=== PATIENT | male | born 1955 | race Caucasian/White ===

== ENCOUNTER 2020-11-23 19:21 | Inpatient (IN) | payer OTHER ==
[~2020-11-23] VITALS: Ht 172.7 cm; Wt 102.2 kg
[~2020-11-23 19:21] MED LIST: ACET325T9 PO; ANALGESIC BALM TP; ASPI325T11 PO; CALC60CR2 TP; DILTIAZEM CD PO; DOCU100C28 PO; FLUT16SP NS; TRIAMCINOLONE 0.1% TP; [UNRECOGNIZED DRUG - OTHER] PO
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
--- NOTE | 2020-11-23 19:51 | RAD ---
AP chest. HISTORY: Chest tube placement AP view was taken of the chest. Comparison is made with the prior study . The left chest tube is kinked at the proximal sidehole similar to the prior film. There is subcutan eous emphysema on the left. A pneumothorax is not identified. There is atelectasis in the left lung. Again noted are the multiple left rib fractures. IMPRESSION: 1. Left chest tube kinked at the proximal sidehole. 2. A pneumothorax is not identified. 3. Atelectasis left lung. Electronically signed by: Chuy Noonan MD (11/23/2020 7:48 PM) [facility]
[2020-11-23 19:57] LABS: BASO % 0 % (0-3); EOS % 0 % (0-3); HEMATOCRIT 42.8 % (39.0-53.0); LYMPH # 1.3 x10^3/uL (1.0-4.8); LYMPH % 11 % (24-48); MEAN CORPUSCULAR HEMOGLOBIN 26 pg (25-35); MEAN CORPUSCULAR HGB CONC 33 g/dL (31-37); MEAN CORPUSCULAR VOLUME 79 fL (79-100); MONO # 0.8 x10^3/uL (0.0-1.1); MONO % 6 % (0-9); NEUT # 9.9 x10^3/uL (1.8-7.7); NEUT % 83 % (31-73); PLATELET COUNT 225 x10^3/uL (140-400); RED BLOOD COUNT 5.39 x10^6/uL (4.30-5.70); WHITE BLOOD COUNT 11.9 x10^3/uL (4.0-11.0)
[2020-11-23 20:07] LABS: CREATININE 1.1 mg/dL (0.7-1.3); GFR 67.6; POTASSIUM 3.8 mmol/L (3.5-5.1)
[2020-11-23 20:13] LABS: ALBUMIN 3.8 g/dL (3.4-5.0); CALCIUM 8.7 mg/dL (8.5-10.1); TOTAL BILIRUBIN 0.4 mg/dL (0.2-1.0); TOTAL PROTEIN 7.5 g/dL (6.4-8.2)
[2020-11-23] MEDS ORDERED: ONDANSETRON PF 4 MG/2 ML VIAL. IV PRN (21:00)
[2020-11-23 21:10] VITALS: BP 211/89
[2020-11-23] MEDS: MORPHINE SULFATE 4 MG/ML VIAL. IV PRN ×2 (21:37→23:46)
[2020-11-23] MEDS ORDERED: LOSA-73 PO (21:48)
[2020-11-23] MEDS ORDERED: MAGN400C PO (21:48)
[2020-11-23] MEDS ORDERED: BYSTOLIC2.5 MG PO (21:48)
[2020-11-23 23:00] VITALS: BP 235/105
[2020-11-23] MEDS: HYDROcodone/APAP 5/325MG 1 TAB TABLET PO PRN (23:02)
[2020-11-23] MEDS: LOSARTAN POTASSIUM 50 MG TABLET. PO SCH (23:06)
[2020-11-23] MEDS: METOPROLOL TART IMMED RELEASE 25 MG TABLET. PO SCH (23:07)
[2020-11-23] MEDS: hydrALAZINE 20 MG/ML VIAL. IVP PRN (23:24)
[2020-11-23 23:49] VITALS: BP 183/88
[2020-11-24] VITALS (7 sets, daily range): BP systolic 154–225; BP diastolic 71–118
[2020-11-24] MEDS: HYDROmorphone 2 MG/ML VIAL IVP PRN ×8 (01:08→23:56)
--- NOTE | 2020-11-24 01:20 | NUR ---
Pt's BP had been high @ the 200's. Dr Reardon notified, orders received. To transfer to [facility].
--- NOTE | 2020-11-24 01:20 | NUR ---
Pt asked if he can call his family. Pt was informed that its not allowed. Reinforced.
--- NOTE | 2020-11-24 04:20 | NUR ---
Pts BP at 229/118, HR is 90. Pt refusing to have IV hydralazine administered. Pt educated on effects of high blood pressure, pt states he has high blood pressure at this level all the time, that the doesn't have a headache and doesn't want to take any BP medication at this time.
[2020-11-24] MEDS: ASPIRIN ENTERIC COATED 325 MG TABLET.DR. PO SCH (08:40)
[2020-11-24] MEDS: HYDROcodone/APAP 5/325MG 1 TAB TABLET PO PRN ×4 (08:40→23:57)
[2020-11-24] MEDS: LOSARTAN POTASSIUM 50 MG TABLET. PO SCH (08:41)
[2020-11-24] MEDS: METOPROLOL TART IMMED RELEASE 25 MG TABLET. PO SCH ×2 (08:41→21:25)
--- NOTE | 2020-11-24 08:48 | RAD ---
EXAM: Chest, single view. HISTORY: Pneumothorax. COMPARISON: 11/23/2020 FINDINGS: A frontal view of the chest is obtained. There is a left thoracostomy tube unchanged in pos ition. There is soft tissue gas along the lateral left chest wall. There is a stable small left pneum othorax. There is lateral left mid lung and lower lobe atelectasis. There is a stable prominent cardi ac silhouette. There is lucency under the right diaphragm. IMPRESSION: 1. No signal change in a small left pneumothorax status post thoracostomy tube placement. There is st able left mid and lower lung atelectasis. 2. Lucency under the right hemidiaphragm possibly due to interposition of bowel superior to the liver . There is no correlate for this finding on the prior study. Dedicated upright and supine views of th e abdomen can be performed if this concern for pneumoperitoneum. Electronically signed by: Pinky Torres MD (11/24/2020 8:46 AM) [id number]
[2020-11-24] MEDS ORDERED: CALCIPOTRIENE 1 GM TP SCH (09:00)
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
[2020-11-24] MEDS ORDERED: SODIUM PHOSPHATES 19/7GM 133 ML ENEMA. PR PRN (11:00)
[2020-11-24] MEDS ORDERED: 0.9 % SODIUM CHLORIDE 10 ML DISP.SYRIN. IV PRN (11:00)
[2020-11-24] MEDS ORDERED: ACETAMINOPHEN 325 MG TABLET. PO PRN (11:00)
[2020-11-24] MEDS ORDERED: MAG HYDROX/ALUMINUM HYD/SIMETH 30 ML ORAL.SUSP PO PRN (11:00)
[2020-11-24] MEDS ORDERED: ONDANSETRON PF 4 MG/2 ML VIAL. IV PRN (11:00)
[2020-11-24] MEDS ORDERED: cloNIDine HCL 0.1 MG TABLET PO PRN (11:00)
[2020-11-24 13:29] LABS: BASO % 0 % (0-3); EOS % 0 % (0-3); HEMATOCRIT 40.1 % (39.0-53.0); HEMOGLOBIN 13.2 g/dL (13.0-17.5); LYMPH # 1.8 x10^3/uL (1.0-4.8); LYMPH % 18 % (24-48); MEAN CORPUSCULAR HEMOGLOBIN 26 pg (25-35); MEAN CORPUSCULAR HGB CONC 33 g/dL (31-37); MEAN CORPUSCULAR VOLUME 80 fL (79-100); MONO # 0.7 x10^3/uL (0.0-1.1); MONO % 7 % (0-9); NEUT # 7.5 x10^3/uL (1.8-7.7); NEUT % 75 % (31-73); PLATELET COUNT 197 x10^3/uL (140-400); RED BLOOD COUNT 5.01 x10^6/uL (4.30-5.70)
[2020-11-24 13:49] LABS: ALBUMIN 3.6 g/dL (3.4-5.0); CALCIUM 8.5 mg/dL (8.5-10.1); CREATININE 1.2 mg/dL (0.7-1.3); GFR 61.1; POTASSIUM 3.3 mmol/L (3.5-5.1); TOTAL BILIRUBIN 0.7 mg/dL (0.2-1.0); TOTAL PROTEIN 7.3 g/dL (6.4-8.2)
[2020-11-24] MEDS: IV NORMAL SALINE 1000ML BAG 1,000 ML IV SCH (13:58)
--- NOTE | 2020-11-24 15:27 | PDOC2 ---
CARDIOLOGY CONSULT NOTE DATE OF SERVICE: DATE: 11/24/20 TIME: 15:21 CHIEF COMPLAINT: Fall and resultant pneumothorax HPI: 65-year-old man who has been admitted to the hospital for treatment of a pneumothorax after a fall and rib fractures. He has been in significant pain and in the setting has had elevated blood pressures. Cardiology was asked to comment on his elevated blood pressures. He currently denies any chest pain. He has no exertional dyspnea prior to his fall. He has no syncope or palpitations. He has been struggling with blood pressure issues at his half-way and has been reluctant to take medications and he initially wanted to do weight loss and dietary changes but he is now more recently been taking his blood pressure medications. He denies any other cardiac pathology although per history it is reported that he had a stent in 2010. PMHX: 1. Coronary artery disease status post PCI with presumed non-ST elevation microinfarction based on records in 2010 or 2011 2. Hypertension 3. Dyslipidemia 4. Obstructive sleep apnea 5. Chronic pain SOCHX: He currently lives in half-way. Denies any alcohol, tobacco or illicit drug use. FAMHX: Noncontributory CURRENT MEDS: Current Medications Medications (Trade) Dose Ordered Sig/Katie Route PRN Reason Start Time Stop Time Status Last Admin Dose Admin Ondansetron HCl (Zofran) 4 mg PRN Q8HRS PRN IV NAUSEA/VOMITING 11/23/20 21:00 11/24/20 11:34 DC 11/24/20 01:32 Morphine Sulfate (Morphine Sulfate) 4 mg PRN Q2HR PRN IV PAIN 11/23/20 21:00 11/24/20 00:42 DC 11/23/20 23:46 Aspirin (Ecotrin) 325 mg DAILY PO 11/24/20 09:00 11/24/20 08:40 Losartan Potassium (Cozaar) 50 mg DAILY PO 11/23/20 23:30 11/24/20 08:41 Metoprolol Tartrate (Lopressor) 12.5 mg BID PO 11/23/20 23:30 11/24/20 08:41 Acetaminophen/ Hydrocodone Bitart (Lortab 5/325) 1 tab PRN Q4HRS PRN PO MODERATE PAIN 4-6 11/23/20 23:00 11/24/20 15:00 Hydralazine HCl (Apresoline Inj) 10 mg PRN Q4HRS PRN IVP ELEVATED BP, SEE COMMENTS 11/23/20 23:00 11/23/20 23:24 Hydromorphone HCl (Dilaudid) 0.7 mg PRN Q3HRS PRN IVP SEVERE PAIN 7-10 11/24/20 00:45 11/24/20 14:04 Sodium Chloride 1,000 ml @ 65 mls/hr [id number] IV 11/24/20 12:00 11/24/20 13:58 ALLERGIES: Allergies Coded Allergies Type Severity Reaction Last Updated Verified No Known Drug Allergies 05/12/17 No ROS: Negative unless otherwise mentioned above in HPI PHYSICAL EXAM: Vital Signs/I&O: Vital Signs Date Time Temp Pulse Resp B/P (MAP) Pulse Ox O2 Delivery O2 Flow Rate FiO2 11/24/20 15:00 18 97 Room Air 11/24/20 11:00 98.4 61 154/71 (98) 98.4 11/24/20 04:25 2.0 I & O 11/23/20 11/23/20 11/24/20 15:00 23:00 07:00 Intake Total 600 ml Output Total 518 ml Balance 82 ml Physical Exam: The patient appeared well nourished and normally developed. Head exam is unremarkable. No scleral icterus or corneal arcus noted. Neck is without jugular venous distension, thyromegaly, or carotid bruits. Carotid upstrokes are brisk bilaterally. Lungs are clear to auscultation anteriorly with left-sided chest tube in place Cardiac exam reveals the PMI to be normally sized and situated. Rhythm is regular. First and second heart sounds normal. No murmurs, rubs or gallops. Abdominal exam reveals normal bowel sounds, no masses, no organomegaly and no aortic enlargement. Extremities are nonedematous and both femoral and pedal pulses are normal. Msk: No traumua Neuro: No focal deficits DIAGNOSTIC TESTING: Labs reviewed. ASSESSMENT: 1. Elevated blood pressure in the setting of pneumothorax and chest tube: Although his blood pressure is elevated at this time I suspect this is mostly due to pain. He also has underlying hypertension 2. Coronary artery disease 3. Dyslipidemia PLAN: 1. At this present time continue aspirin, metoprolol and losartan. Consider ou tpatient statin therapy given prior history of coronary artery disease 2. Once his acute issues are resolved with his chest tube and rib pain if he still is hypertensive we can continue to adjust his medical therapy as necessary. At this present time no further cardiac testing is needed. Supportive care for now. We will follow along closely. Thank you for this consultation JANUARY CHICAS MD Nov 24, 2020 15:27
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
[2020-11-24] MEDS: ENOXAPARIN 40 MG/0.4 ML SYRINGE. SQ SCH (17:39)
--- NOTE | 2020-11-24 20:15 | NUR ---
The patient's BP was noted to be elevated, prn pain meds given. BP went down to the 150's. The patient still complained of severe pain, called doctor vest front presser, new orders received.
[2020-11-24] MEDS ORDERED: POTASSIUM CHLORIDE 20 MEQ TABLET.ER. PO ONE (20:45)
[2020-11-24] MEDS: hydrALAZINE 20 MG/ML VIAL. IVP PRN (21:24)
[2020-11-25] MEDS: HYDROmorphone 2 MG/ML VIAL IVP PRN ×6 (02:06→16:40)
[2020-11-25] MEDS: HYDROcodone/APAP 5/325MG 1 TAB TABLET PO PRN ×3 (04:11→13:08)
[2020-11-25] MEDS: IV NORMAL SALINE 1000ML BAG 1,000 ML IV SCH ×2 (04:13→21:41)
[2020-11-25 04:28] LABS: CALCIUM 8.5 mg/dL (8.5-10.1); CREATININE 0.9 mg/dL (0.7-1.3); GFR 85.2
[2020-11-25 07:00] VITALS: BP 172/61
--- NOTE | 2020-11-25 07:45 | RAD ---
EXAM: Chest, single view. HISTORY: Pneumothorax. COMPARISON: 11/24/2020 FINDINGS: A frontal view of the chest is obtained. There is a left thoracostomy tube overlying the le ft upper thorax. No pneumothorax is seen. There is left greater than right lower lobe infiltrate or a telectasis. There are displaced left rib fractures. There is a stable cardiac silhouette. There is ti ssue gas along the left chest wall. IMPRESSION: 1. Left thoracostomy tube overlying the left upper thorax. No pneumothorax is seen. 2. Stable left greater than right lower lobe atelectasis or infiltrate. 3. Multiple left rib fractures. Electronically signed by: Pinky Torres MD (11/25/2020 7:43 AM) [id number]
[2020-11-25] MEDS: POTASSIUM CHLORIDE 20 MEQ TABLET.ER. PO SCH (08:06)
[2020-11-25] MEDS: METOPROLOL TART IMMED RELEASE 25 MG TABLET. PO SCH ×2 (08:07→21:44)
[2020-11-25] MEDS: LOSARTAN POTASSIUM 50 MG TABLET. PO SCH (08:07)
[2020-11-25] MEDS: ASPIRIN ENTERIC COATED 325 MG TABLET.DR. PO SCH (08:07)
--- NOTE | 2020-11-25 08:51 | PDOC ---
PULMONARY PROGRESS NOTES DATE: 11/25/20 TIME: 08:49 Subjective has rib pain, sob no cough Vitals Vital Signs Date Time Temp Pulse Resp B/P (MAP) Pulse Ox O2 Delivery O2 Flow Rate FiO2 11/25/20 08:07 70 172/61 11/25/20 08:06 18 97 Room Air 11/25/20 07:04 2.0 11/25/20 07:00 97.7 97.7 Lungs: Other (l ct l diminished bs ) Cardiovascular: S1, S2 Abdomen: Soft Neuro Exam: Alert Skin: Warm Labs Laboratory Tests Test 11/23/20 19:48 11/24/20 13:05 11/25/20 03:40 White Blood Count 11.9 x10^3/uL (4.0-11.0) 10.0 x10^3/uL (4.0-11.0) Red Blood Count 5.39 x10^6/uL (4.30-5.70) 5.01 x10^6/uL (4.30-5.70) Hemoglobin 14.0 g/dL (13.0-17.5) 13.2 g/dL (13.0-17.5) Hematocrit 42.8 % (39.0-53.0) 40.1 % (39.0-53.0) Mean Corpuscular Volume 79 fL (79-100) 80 fL (79-100) Mean Corpuscular Hemoglobin 26 pg (25-35) 26 pg (25-35) Mean Corpuscular Hemoglobin Concent 33 g/dL (31-37) 33 g/dL (31-37) Red Cell Distribution Width 14.0 % (11.5-14.5) 14.0 % (11.5-14.5) Platelet Count 225 x10^3/uL (140-400) 197 x10^3/uL (140-400) Neutrophils (%) (Auto) 83 % (31-73) 75 % (31-73) Lymphocytes (%) (Auto) 11 % (24-48) 18 % (24-48) Monocytes (%) (Auto) 6 % (0-9) 7 % (0-9) Eosinophils (%) (Auto) 0 % (0-3) 0 % (0-3) Basophils (%) (Auto) 0 % (0-3) 0 % (0-3) Neutrophils # (Auto) 9.9 x10^3/uL (1.8-7.7) 7.5 x10^3/uL (1.8-7.7) Lymphocytes # (Auto) 1.3 x10^3/uL (1.0-4.8) 1.8 x10^3/uL (1.0-4.8) Monocytes # (Auto) 0.8 x10^3/uL (0.0-1.1) 0.7 x10^3/uL (0.0-1.1) Eosinophils # (Auto) 0.0 x10^3/uL (0.0-0.7) 0.0 x10^3/uL (0.0-0.7) Basophils # (Auto) 0.0 x10^3/uL (0.0-0.2) 0.0 x10^3/uL (0.0-0.2) Sodium Level 144 mmol/L (136-145) 143 mmol/L (136-145) 139 mmol/L (136-145) Potassium Level 3.8 mmol/L (3.5-5.1) 3.3 mmol/L (3.5-5.1) 4.0 mmol/L (3.5-5.1) Chloride Level 103 mmol/L (98-107) 103 mmol/L (98-107) 104 mmol/L (98-107) Carbon Dioxide Level 27 mmol/L (21-32) 32 mmol/L (21-32) 25 mmol/L (21-32) Anion Gap 14 (6-14) 8 (6-14) 10 (6-14) Blood Urea Nitrogen 15 mg/dL (8-26) 23 mg/dL (8-26) 24 mg/dL (8-26) Creatinine 1.1 mg/dL (0.7-1.3) 1.2 mg/dL (0.7-1.3) 0.9 mg/dL (0.7-1.3) Estimated GFR (Cockcroft-Gault) 67.6 61.1 85.2 BUN/Creatinine Ratio 14 (6-20) 19 (6-20) Glucose Level 155 mg/dL (70-99) 133 mg/dL (70-99) 101 mg/dL (70-99) Calcium Level 8.7 mg/dL (8.5-10.1) 8.5 mg/dL (8.5-10.1) 8.5 mg/dL (8.5-10.1) Total Bilirubin 0.4 mg/dL (0.2-1.0) 0.7 mg/dL (0.2-1.0) Aspartate Amino Transf (AST/SGOT) 26 U/L (15-37) 25 U/L (15-37) Alanine Aminotransferase (ALT/SGPT) 23 U/L (16-63) 17 U/L (16-63) Alkaline Phosphatase 61 U/L (46-116) 56 U/L (46-116) Total Protein 7.5 g/dL (6.4-8.2) 7.3 g/dL (6.4-8.2) Albumin 3.8 g/dL (3.4-5.0) 3.6 g/dL (3.4-5.0) Albumin/Globulin Ratio 1.0 (1.0-1.7) 1.0 (1.0-1.7) Laboratory Tests Test 11/24/20 13:05 11/25/20 03:40 White Blood Count 10.0 x10^3/uL (4.0-11.0) Red Blood Count 5.01 x10^6/uL (4.30-5.70) Hemoglobin 13.2 g/dL (13.0-17.5) Hematocrit 40.1 % (39.0-53.0) Mean Corpuscular Volume 80 fL (79-100) Mean Corpuscular Hemoglobin 26 pg (25-35) Mean Corpuscular Hemoglobin Concent 33 g/dL (31-37) Red Cell Distribution Width 14.0 % (11.5-14.5) Platelet Count 197 x10^3/uL (140-400) Neutrophils (%) (Auto) 75 % (31-73) Lymphocytes (%) (Auto) 18 % (24-48) Monocytes (%) (Auto) 7 % (0-9) Eosinophils (%) (Auto) 0 % (0-3) Basophils (%) (Auto) 0 % (0-3) Neutrophils # (Auto) 7.5 x10^3/uL (1.8-7.7) Lymphocytes # (Auto) 1.8 x10^3/uL (1.0-4.8) Monocytes # (Auto) 0.7 x10^3/uL (0.0-1.1) Eosinophils # (Auto) 0.0 x10^3/uL (0.0-0.7) Basophils # (Auto) 0.0 x10^3/uL (0.0-0.2) Sodium Level 143 mmol/L (136-145) 139 mmol/L (136-145) Potassium Level 3.3 mmol/L (3.5-5.1) 4.0 mmol/L (3.5-5.1) Chloride Level 103 mmol/L (98-107) 104 mmol/L (98-107) Carbon Dioxide Level 32 mmol/L (21-32) 25 mmol/L (21-32) Anion Gap 8 (6-14) 10 (6-14) Blood Urea Nitrogen 23 mg/dL (8-26) 24 mg/dL (8-26) Creatinine 1.2 mg/dL (0.7-1.3) 0.9 mg/dL (0.7-1.3) Estimated GFR (Cockcroft-Gault) 61.1 85.2 BUN/Creatinine Ratio 19 (6-20) Glucose Level 133 mg/dL (70-99) 101 mg/dL (70-99) Calcium Level 8.5 mg/dL (8.5-10.1) 8.5 mg/dL (8.5-10.1) Total Bilirubin 0.7 mg/dL (0.2-1.0) Aspartate Amino Transf (AST/SGOT) 25 U/L (15-37) Alanine Aminotransferase (ALT/SGPT) 17 U/L (16-63) Alkaline Phosphatase 56 U/L (46-116) Total Protein 7.3 g/dL (6.4-8.2) Albumin 3.6 g/dL (3.4-5.0) Albumin/Globulin Ratio 1.0 (1.0-1.7) Medications Active Scripts Medications Dose Route/Sig Max Daily Dose Days Date Category Magnesium (Magnesium Oxide) 400 Mg Capsule 1 Cap PO DAILY 30 11/23/20 Reported Losartan Potassium 50 Mg Tablet 50 Mg PO DAILY 11/23/20 Reported Bystolic (Nebivolol) 2.5 Mg Tablet 2.5 Mg PO DAILY 11/23/20 Reported Dovonex (Calcipotriene) 60 Gm Cream..g. 1 Gm TP TID 30 05/15/17 Rx [Triamcinolone 0.1%CR] 1 Applic TP BID 05/13/17 Reported Tylenol (Acetaminophen) 325 Mg Tablet 650 Mg PO BID PRN 05/13/17 Reported Fluticasone Propionate Nasal [place] (Fluticasone Propionate) 16 Gm [place].susp 1 [place] NS HS 05/13/17 Reported [Diltiazem CD] 1 Cap PO DAILY 05/13/17 Reported Aspirin Ec (Aspirin) 325 Mg Tablet.dr 1 Tab PO DAILY 05/13/17 Reported Comments cxr reviewed 1. Left thoracostomy tube overlying the left upper thorax. No pneumothorax is seen. 2. Stable left greater than right lower lobe atelectasis or infiltrate. 3. Multiple left rib fractures. Impression . IMPRESSION: 1. Status post fall. 2. Abnormal chest x-ray. 3. Left pneumothorax. 4. Rib fractures. 5. Obstructive sleep apnea-hypopnea syndrome. 6. History of coronary artery disease. 7. Hypertension. Plan . PLAN AND RECOMMENDATIONS: 1. Titrate FiO2 to keep O2 saturation 92%. 2. cxr reviewed, no ptx chest tube to water seal 3. Chest x-ray in the morning. 4. Lovenox for DVT prophylaxis. 5. Pain control per primary. 6. We would require repeat sleep study as an outpatient. 7. add BD The findings and recommendations were discussed with the patient and RN. JESSIE JOINER MD Nov 25, 2020 08:51
[2020-11-25] MEDS ORDERED: IPRATRPIUM/ALBUTEROL 0.5/2.5MG 3 ML NEBU. NEB ONE (09:00)
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
[2020-11-25 11:00] VITALS: BP 199/105
[2020-11-25] MEDS: IPRATRPIUM/ALBUTEROL 0.5/2.5MG 3 ML NEBU. NEB SCH ×3 (11:41→20:25)
[2020-11-25 11:59] LABS: BILIRUBIN,URINE NEGATIVE (NEG); CLARITY,URINE CLEAR; COLOR,URINE YELLOW; NITRITE,URINE NEGATIVE (NEG); PH,URINE 6.5 (<5.0-8.0); PROTEIN,URINE NEGATIVE (NEG-TRACE); UROBILINOGEN,URINE 0.2 mg/dL (0.2 mg/dL)
[2020-11-25 12:06] LABS: BARBITURATES NEG (NEG); BENZODIAZEPINES NEG (NEG); CANNABINOIDS NEG (NEG); COCAINE NEG (NEG); METHADONE NEG (NEG); OPIATES POS (NEG); PHENCYCLIDINE NEG (NEG)
[2020-11-25 12:08] LABS: AMPHETAMINE/METHAMPHETAMINE NEG (NEG)
[2020-11-25 12:18] LABS: HYALINE CASTS, URINE MODERATE /HPF
[2020-11-25 12:19] LABS: BACTERIA,URINE 0 /HPF (0-FEW); WBC,URINE 0 /HPF (0-4)
--- NOTE | 2020-11-25 12:34 | PDOC ---
SURGICAL PROGRESS NOTE DATE: 11/25/20 TIME: 12:32 Subjective Pt with c/o rib pain, nichole diet Vital Signs Vital Signs Date Time Temp Pulse Resp B/P (MAP) Pulse Ox O2 Delivery O2 Flow Rate FiO2 11/25/20 11:41 94 Room Air 11/25/20 11:00 98.6 73 20 199/105 (136) 98.6 11/25/20 07:04 2.0 I&O Intake and Output 11/25/20 07:00 Output Total 870 ml Balance -870 ml Output Urine Total 850 ml Chest Tube Drainage Total 20 ml General: Alert, Oriented X3, Cooperative, moderate distress HEENT: Atraumatic Lungs: Other (serosang) Abdomen: Soft, No tenderness Labs Laboratory Tests Test 11/23/20 19:48 11/24/20 13:05 11/25/20 00:05 11/25/20 03:40 White Blood Count 11.9 x10^3/uL (4.0-11.0) 10.0 x10^3/uL (4.0-11.0) Red Blood Count 5.39 x10^6/uL (4.30-5.70) 5.01 x10^6/uL (4.30-5.70) Hemoglobin 14.0 g/dL (13.0-17.5) 13.2 g/dL (13.0-17.5) Hematocrit 42.8 % (39.0-53.0) 40.1 % (39.0-53.0) Mean Corpuscular Volume 79 fL (79-100) 80 fL (79-100) Mean Corpuscular Hemoglobin 26 pg (25-35) 26 pg (25-35) Mean Corpuscular Hemoglobin Concent 33 g/dL (31-37) 33 g/dL (31-37) Red Cell Distribution Width 14.0 % (11.5-14.5) 14.0 % (11.5-14.5) Platelet Count 225 x10^3/uL (140-400) 197 x10^3/uL (140-400) Neutrophils (%) (Auto) 83 % (31-73) 75 % (31-73) Lymphocytes (%) (Auto) 11 % (24-48) 18 % (24-48) Monocytes (%) (Auto) 6 % (0-9) 7 % (0-9) Eosinophils (%) (Auto) 0 % (0-3) 0 % (0-3) Basophils (%) (Auto) 0 % (0-3) 0 % (0-3) Neutrophils # (Auto) 9.9 x10^3/uL (1.8-7.7) 7.5 x10^3/uL (1.8-7.7) Lymphocytes # (Auto) 1.3 x10^3/uL (1.0-4.8) 1.8 x10^3/uL (1.0-4.8) Monocytes # (Auto) 0.8 x10^3/uL (0.0-1.1) 0.7 x10^3/uL (0.0-1.1) Eosinophils # (Auto) 0.0 x10^3/uL (0.0-0.7) 0.0 x10^3/uL (0.0-0.7) Basophils # (Auto) 0.0 x10^3/uL (0.0-0.2) 0.0 x10^3/uL (0.0-0.2) Sodium Level 144 mmol/L (136-145) 143 mmol/L (136-145) 139 mmol/L (136-145) Potassium Level 3.8 mmol/L (3.5-5.1) 3.3 mmol/L (3.5-5.1) 4.0 mmol/L (3.5-5.1) Chloride Level 103 mmol/L (98-107) 103 mmol/L (98-107) 104 mmol/L (98-107) Carbon Dioxide Level 27 mmol/L (21-32) 32 mmol/L (21-32) 25 mmol/L (21-32) Anion Gap 14 (6-14) 8 (6-14) 10 (6-14) Blood Urea Nitrogen 15 mg/dL (8-26) 23 mg/dL (8-26) 24 mg/dL (8-26) Creatinine 1.1 mg/dL (0.7-1.3) 1.2 mg/dL (0.7-1.3) 0.9 mg/dL (0.7-1.3) Estimated GFR (Cockcroft-Gault) 67.6 61.1 85.2 BUN/Creatinine Ratio 14 (6-20) 19 (6-20) Glucose Level 155 mg/dL (70-99) 133 mg/dL (70-99) 101 mg/dL (70-99) Calcium Level 8.7 mg/dL (8.5-10.1) 8.5 mg/dL (8.5-10.1) 8.5 mg/dL (8.5-10.1) Total Bilirubin 0.4 mg/dL (0.2-1.0) 0.7 mg/dL (0.2-1.0) Aspartate Amino Transf (AST/SGOT) 26 U/L (15-37) 25 U/L (15-37) Alanine Aminotransferase (ALT/SGPT) 23 U/L (16-63) 17 U/L (16-63) Alkaline Phosphatase 61 U/L (46-116) 56 U/L (46-116) Total Protein 7.5 g/dL (6.4-8.2) 7.3 g/dL (6.4-8.2) Albumin 3.8 g/dL (3.4-5.0) 3.6 g/dL (3.4-5.0) Albumin/Globulin Ratio 1.0 (1.0-1.7) 1.0 (1.0-1.7) Urine Collection Type Unknown Urine Color Yellow Urine Clarity Clear Urine pH 6.5 (<5.0-8.0) Urine Specific [place] 1.020 (1.000-1.030) Urine Protein Negative mg/dL (NEG-TRACE) Urine Glucose (UA) Negative mg/dL (NEG) Urine Ketones (Stick) Negative mg/dL (NEG) Urine Blood Negative (NEG) Urine Nitrite Negative (NEG) Urine Bilirubin Negative (NEG) Urine Urobilinogen Dipstick 0.2 mg/dL (0.2 mg/dL) Urine Leukocyte Esterase Negative (NEG) Urine RBC 3-5 /HPF (0-2) Urine WBC 0 /HPF (0-4) Urine Squamous Epithelial Cells Few /LPF Urine Bacteria 0 /HPF (0-FEW) Urine Hyaline Casts Moderate /HPF Urine Mucus Mod /LPF Urine Opiates Screen Pos (NEG) Urine Methadone Screen Neg (NEG) Urine Barbiturates Neg (NEG) Urine Phencyclidine Screen Neg (NEG) Urine Amphetamine/Methamphetamine Neg (NEG) Urine Benzodiazepines Screen Neg (NEG) Urine Cocaine Screen Neg (NEG) Urine Cannabinoids Screen Neg (NEG) Urine Ethyl Alcohol Neg (NEG) Laboratory Tests Test 11/24/20 13:05 11/25/20 00:05 11/25/20 03:40 White Blood Count 10.0 x10^3/uL (4.0-11.0) Red Blood Count 5.01 x10^6/uL (4.30-5.70) Hemoglobin 13.2 g/dL (13.0-17.5) Hematocrit 40.1 % (39.0-53.0) Mean Corpuscular Volume 80 fL (79-100) Mean Corpuscular Hemoglobin 26 pg (25-35) Mean Corpuscular Hemoglobin Concent 33 g/dL (31-37) Red Cell Distribution Width 14.0 % (11.5-14.5) Platelet Count 197 x10^3/uL (140-400) Neutrophils (%) (Auto) 75 % (31-73) Lymphocytes (%) (Auto) 18 % (24-48) Monocytes (%) (Auto) 7 % (0-9) Eosinophils (%) (Auto) 0 % (0-3) Basophils (%) (Auto) 0 % (0-3) Neutrophils # (Auto) 7.5 x10^3/uL (1.8-7.7) Lymphocytes # (Auto) 1.8 x10^3/uL (1.0-4.8) Monocytes # (Auto) 0.7 x10^3/uL (0.0-1.1) Eosinophils # (Auto) 0.0 x10^3/uL (0.0-0.7) Basophils # (Auto) 0.0 x10^3/uL (0.0-0.2) Sodium Level 143 mmol/L (136-145) 139 mmol/L (136-145) Potassium Level 3.3 mmol/L (3.5-5.1) 4.0 mmol/L (3.5-5.1) Chloride Level 103 mmol/L (98-107) 104 mmol/L (98-107) Carbon Dioxide Level 32 mmol/L (21-32) 25 mmol/L (21-32) Anion Gap 8 (6-14) 10 (6-14) Blood Urea Nitrogen 23 mg/dL (8-26) 24 mg/dL (8-26) Creatinine 1.2 mg/dL (0.7-1.3) 0.9 mg/dL (0.7-1.3) Estimated GFR (Cockcroft-Gault) 61.1 85.2 BUN/Creatinine Ratio 19 (6-20) Glucose Level 133 mg/dL (70-99) 101 mg/dL (70-99) Calcium Level 8.5 mg/dL (8.5-10.1) 8.5 mg/dL (8.5-10.1) Total Bilirubin 0.7 mg/dL (0.2-1.0) Aspartate Amino Transf (AST/SGOT) 25 U/L (15-37) Alanine Aminotransferase (ALT/SGPT) 17 U/L (16-63) Alkaline Phosphatase 56 U/L (46-116) Total Protein 7.3 g/dL (6.4-8.2) Albumin 3.6 g/dL (3.4-5.0) Albumin/Globulin Ratio 1.0 (1.0-1.7) Urine Collection Type Unknown Urine Color Yellow Urine Clarity Clear Urine pH 6.5 (<5.0-8.0) Urine Specific [place] 1.020 (1.000-1.030) Urine Protein Negative mg/dL (NEG-TRACE) Urine Glucose (UA) Negative mg/dL (NEG) Urine Ketones (Stick) Negative mg/dL (NEG) Urine Blood Negative (NEG) Urine Nitrite Negative (NEG) Urine Bilirubin Negative (NEG) Urine Urobilinogen Dipstick 0.2 mg/dL (0.2 mg/dL) Urine Leukocyte Esterase Negative (NEG) Urine RBC 3-5 /HPF (0-2) Urine WBC 0 /HPF (0-4) Urine Squamous Epithelial Cells Few /LPF Urine Bacteria 0 /HPF (0-FEW) Urine Hyaline Casts Moderate /HPF Urine Mucus Mod /LPF Urine Opiates Screen Pos (NEG) Urine Methadone Screen Neg (NEG) Urine Barbiturates Neg (NEG) Urine Phencyclidine Screen Neg (NEG) Urine Amphetamine/Methamphetamine Neg (NEG) Urine Benzodiazepines Screen Neg (NEG) Urine Cocaine Screen Neg (NEG) Urine Cannabinoids Screen Neg (NEG) Urine Ethyl Alcohol Neg (NEG) Problem List Problems Medical Problems: (1) Head injury Status: Acute (2) Left rib fracture Status: Acute (3) Multiple abrasions Status: Acute (4) Pneumothorax, left Status: Acute Assessment/Plan rib fx will ask pain service to evaluate Justicifation of Admission Dx: Justifications for Admission: Justification of Admission Dx: Yes Respiratory Failure: Severe Resp Distress DAILY MILLER MD Nov 25, 2020 12:34
[2020-11-25 15:00] VITALS: BP 231/119
[2020-11-25] MEDS: LOSARTAN POTASSIUM 25 MG TABLET. PO SCH (15:10)
[2020-11-25] MEDS: hydrALAZINE 20 MG/ML VIAL. IVP PRN ×2 (15:11→21:44)
[2020-11-25] MEDS: ENOXAPARIN 40 MG/0.4 ML SYRINGE. SQ SCH (15:14)
[2020-11-25] MEDS: DOCUSATE SODIUM 100 MG CAPSULE. PO PRN (15:25)
[2020-11-25] MEDS ORDERED: ACETAMINOPHEN 500 MG TABLET PO PRN (16:45)
[2020-11-25] MEDS ORDERED: IBUPROFEN 200 MG TABLET. PO PRN (16:45)
[2020-11-25] MEDS ORDERED: NALOXONE 0.4 MG/ML VIAL. IV PRN (17:00)
[2020-11-25 19:00] VITALS: BP 219/129
[2020-11-25 23:00] VITALS: BP 176/85
[2020-11-26 03:00] VITALS: BP 202/102
[2020-11-26 05:05] LABS: BASO % 0 % (0-3); EOS # 0.1 x10^3/uL (0.0-0.7); EOS % 1 % (0-3); HEMATOCRIT 41.9 % (39.0-53.0); HEMOGLOBIN 13.7 g/dL (13.0-17.5); LYMPH # 1.9 x10^3/uL (1.0-4.8); LYMPH % 21 % (24-48); MEAN CORPUSCULAR HEMOGLOBIN 27 pg (25-35); MEAN CORPUSCULAR HGB CONC 33 g/dL (31-37); MEAN CORPUSCULAR VOLUME 81 fL (79-100); MONO # 0.7 x10^3/uL (0.0-1.1); MONO % 7 % (0-9); NEUT # 6.4 x10^3/uL (1.8-7.7); NEUT % 70 % (31-73); PLATELET COUNT 227 x10^3/uL (140-400); RED BLOOD COUNT 5.15 x10^6/uL (4.30-5.70); RED CELL DISTRIBUTION WIDTH 14.1 % (11.5-14.5); WHITE BLOOD COUNT 9.2 x10^3/uL (4.0-11.0)
[2020-11-26] MEDS: hydrALAZINE 20 MG/ML VIAL. IVP PRN ×2 (05:33→09:31)
[2020-11-26 05:36] LABS: CALCIUM 8.8 mg/dL (8.5-10.1); CREATININE 0.8 mg/dL (0.7-1.3); GFR 97.6
[2020-11-26 05:56] LABS: POTASSIUM 3.7 mmol/L (3.5-5.1)
[2020-11-26 07:00] VITALS: BP 219/116
[2020-11-26] MEDS: IPRATRPIUM/ALBUTEROL 0.5/2.5MG 3 ML NEBU. NEB SCH ×4 (07:12→20:01)
--- NOTE | 2020-11-26 08:34 | RAD ---
EXAM: Chest, single view. HISTORY: Pneumothorax. Chest tube. COMPARISON: 11/25/2020. FINDINGS: A frontal view of the chest is obtained. There is a thoracostomy tube overlying the left fernando perior thorax. No convincing pneumothorax is seen. There is stable lower lobe predominant left lung i nfiltrate or atelectasis and right basilar atelectasis. There is a stable prominent cardiac silhouett e. There is soft tissue gas along the lateral left chest wall. There are multiple displaced left rib fractures. IMPRESSION: 1. Left thoracostomy tube overlying the left upper thorax. No convincing pneumothorax is seen. There is stable left lower lobe predominant infiltrate or atelectasis and right basilar atelectasis. 2. Multiple displaced left rib fractures. Electronically signed by: Pinky Torrse MD (11/26/2020 8:32 AM) [id number]
[2020-11-26] MEDS: POTASSIUM CHLORIDE 20 MEQ TABLET.ER. PO SCH (09:05)
[2020-11-26] MEDS: ASPIRIN ENTERIC COATED 325 MG TABLET.DR. PO SCH (09:06)
[2020-11-26] MEDS: METOPROLOL TART IMMED RELEASE 25 MG TABLET. PO SCH ×2 (09:07→22:15)
[2020-11-26] MEDS: LOSARTAN POTASSIUM 25 MG TABLET. PO SCH (09:15)
--- NOTE | 2020-11-26 09:32 | PDOC ---
SURGICAL PROGRESS NOTE DATE: 11/26/20 TIME: 09:24 Subjective continued pain, mainly to back plans for epidural today has [place] [address] Bernal, was incarcerated then with purplish hue to skin, BP controlled needed prior to surgery, did not FU Vital Signs Vital Signs Date Time Temp Pulse Resp B/P (MAP) Pulse Ox O2 Delivery O2 Flow Rate FiO2 11/26/20 09:15 98 219/116 11/26/20 07:14 95 Room Air 11/26/20 07:00 97.9 18 97.9 11/25/20 07:04 2.0 I&O Intake and Output 11/26/20 07:00 Intake Total 480 ml Output Total 1060 ml Balance -580 ml Intake Oral 480 ml Output Urine Total 1000 ml Chest Tube Drainage Total 60 ml # Voids 1 General: Alert, Cooperative HEENT: Other (o2 in place) Lungs: Other (ct in place) Abdomen: Soft, Other (distended, hernia incarcerated, chronic ) Labs Laboratory Tests Test 11/24/20 13:05 11/25/20 00:05 11/25/20 03:40 11/26/20 04:00 White Blood Count 10.0 x10^3/uL (4.0-11.0) 9.2 x10^3/uL (4.0-11.0) Red Blood Count 5.01 x10^6/uL (4.30-5.70) 5.15 x10^6/uL (4.30-5.70) Hemoglobin 13.2 g/dL (13.0-17.5) 13.7 g/dL (13.0-17.5) Hematocrit 40.1 % (39.0-53.0) 41.9 % (39.0-53.0) Mean Corpuscular Volume 80 fL (79-100) 81 fL (79-100) Mean Corpuscular Hemoglobin 26 pg (25-35) 27 pg (25-35) Mean Corpuscular Hemoglobin Concent 33 g/dL (31-37) 33 g/dL (31-37) Red Cell Distribution Width 14.0 % (11.5-14.5) 14.1 % (11.5-14.5) Platelet Count 197 x10^3/uL (140-400) 227 x10^3/uL (140-400) Neutrophils (%) (Auto) 75 % (31-73) 70 % (31-73) Lymphocytes (%) (Auto) 18 % (24-48) 21 % (24-48) Monocytes (%) (Auto) 7 % (0-9) 7 % (0-9) Eosinophils (%) (Auto) 0 % (0-3) 1 % (0-3) Basophils (%) (Auto) 0 % (0-3) 0 % (0-3) Neutrophils # (Auto) 7.5 x10^3/uL (1.8-7.7) 6.4 x10^3/uL (1.8-7.7) Lymphocytes # (Auto) 1.8 x10^3/uL (1.0-4.8) 1.9 x10^3/uL (1.0-4.8) Monocytes # (Auto) 0.7 x10^3/uL (0.0-1.1) 0.7 x10^3/uL (0.0-1.1) Eosinophils # (Auto) 0.0 x10^3/uL (0.0-0.7) 0.1 x10^3/uL (0.0-0.7) Basophils # (Auto) 0.0 x10^3/uL (0.0-0.2) 0.0 x10^3/uL (0.0-0.2) Sodium Level 143 mmol/L (136-145) 139 mmol/L (136-145) 144 mmol/L (136-145) Potassium Level 3.3 mmol/L (3.5-5.1) 4.0 mmol/L (3.5-5.1) 3.7 mmol/L (3.5-5.1) Chloride Level 103 mmol/L (98-107) 104 mmol/L (98-107) 107 mmol/L (98-107) Carbon Dioxide Level 32 mmol/L (21-32) 25 mmol/L (21-32) 27 mmol/L (21-32) Anion Gap 8 (6-14) 10 (6-14) 10 (6-14) Blood Urea Nitrogen 23 mg/dL (8-26) 24 mg/dL (8-26) 15 mg/dL (8-26) Creatinine 1.2 mg/dL (0.7-1.3) 0.9 mg/dL (0.7-1.3) 0.8 mg/dL (0.7-1.3) Estimated GFR (Cockcroft-Gault) 61.1 85.2 97.6 BUN/Creatinine Ratio 19 (6-20) Glucose Level 133 mg/dL (70-99) 101 mg/dL (70-99) 104 mg/dL (70-99) Calcium Level 8.5 mg/dL (8.5-10.1) 8.5 mg/dL (8.5-10.1) 8.8 mg/dL (8.5-10.1) Total Bilirubin 0.7 mg/dL (0.2-1.0) Aspartate Amino Transf (AST/SGOT) 25 U/L (15-37) Alanine Aminotransferase (ALT/SGPT) 17 U/L (16-63) Alkaline Phosphatase 56 U/L (46-116) Total Protein 7.3 g/dL (6.4-8.2) Albumin 3.6 g/dL (3.4-5.0) Albumin/Globulin Ratio 1.0 (1.0-1.7) Urine Collection Type Unknown Urine Color Yellow Urine Clarity Clear Urine pH 6.5 (<5.0-8.0) Urine Specific [place] 1.020 (1.000-1.030) Urine Protein Negative mg/dL (NEG-TRACE) Urine Glucose (UA) Negative mg/dL (NEG) Urine Ketones (Stick) Negative mg/dL (NEG) Urine Blood Negative (NEG) Urine Nitrite Negative (NEG) Urine Bilirubin Negative (NEG) Urine Urobilinogen Dipstick 0.2 mg/dL (0.2 mg/dL) Urine Leukocyte Esterase Negative (NEG) Urine RBC 3-5 /HPF (0-2) Urine WBC 0 /HPF (0-4) Urine Squamous Epithelial Cells Few /LPF Urine Bacteria 0 /HPF (0-FEW) Urine Hyaline Casts Moderate /HPF Urine Mucus Mod /LPF Urine Opiates Screen Pos (NEG) Urine Methadone Screen Neg (NEG) Urine Barbiturates Neg (NEG) Urine Phencyclidine Screen Neg (NEG) Urine Amphetamine/Methamphetamine Neg (NEG) Urine Benzodiazepines Screen Neg (NEG) Urine Cocaine Screen Neg (NEG) Urine Cannabinoids Screen Neg (NEG) Urine Ethyl Alcohol Neg (NEG) Laboratory Tests Test 11/26/20 04:00 White Blood Count 9.2 x10^3/uL (4.0-11.0) Red Blood Count 5.15 x10^6/uL (4.30-5.70) Hemoglobin 13.7 g/dL (13.0-17.5) Hematocrit 41.9 % (39.0-53.0) Mean Corpuscular Volume 81 fL (79-100) Mean Corpuscular Hemoglobin 27 pg (25-35) Mean Corpuscular Hemoglobin Concent 33 g/dL (31-37) Red Cell Distribution Width 14.1 % (11.5-14.5) Platelet Count 227 x10^3/uL (140-400) Neutrophils (%) (Auto) 70 % (31-73) Lymphocytes (%) (Auto) 21 % (24-48) Monocytes (%) (Auto) 7 % (0-9) Eosinophils (%) (Auto) 1 % (0-3) Basophils (%) (Auto) 0 % (0-3) Neutrophils # (Auto) 6.4 x10^3/uL (1.8-7.7) Lymphocytes # (Auto) 1.9 x10^3/uL (1.0-4.8) Monocytes # (Auto) 0.7 x10^3/uL (0.0-1.1) Eosinophils # (Auto) 0.1 x10^3/uL (0.0-0.7) Basophils # (Auto) 0.0 x10^3/uL (0.0-0.2) Sodium Level 144 mmol/L (136-145) Potassium Level 3.7 mmol/L (3.5-5.1) Chloride Level 107 mmol/L (98-107) Carbon Dioxide Level 27 mmol/L (21-32) Anion Gap 10 (6-14) Blood Urea Nitrogen 15 mg/dL (8-26) Creatinine 0.8 mg/dL (0.7-1.3) Estimated GFR (Cockcroft-Gault) 97.6 Glucose Level 104 mg/dL (70-99) Calcium Level 8.8 mg/dL (8.5-10.1) Problem List Problems Medical Problems: (1) Head injury Status: Acute (2) Left rib fracture Status: Acute (3) Multiple abrasions Status: Acute (4) Pneumothorax, left Status: Acute Assessment/Plan continue pain management pulmonary management Justicifation of Admission Dx: Justifications for Admission: Justification of Admission Dx: Yes Respiratory Failure: Severe Resp Distress RUTH ANN JOHN PULP MAKER Nov 26, 2020 09:32
[2020-11-26 10:24] VITALS: BP 211/105
--- NOTE | 2020-11-26 11:39 | PDOC ---
PULMONARY PROGRESS NOTES DATE: 11/26/20 TIME: 11:35 Subjective PT. denies increased SOA or cough remains on room air Reports pain with deep breath no leak from chest tube Vitals Vital Signs Date Time Temp Pulse Resp B/P (MAP) Pulse Ox O2 Delivery O2 Flow Rate FiO2 11/26/20 11:13 19 96 Room Air 11/26/20 10:24 98.0 83 211/105 (140) 98.0 11/25/20 07:04 2.0 ROS: No Nausea, No Chest Pain, No Abdominal Pain, No Increase Cough General: Alert, Oriented X4 Lungs: Other (l ct l diminished bs ) Cardiovascular: S1, S2 Abdomen: Soft Neuro Exam: Alert Skin: Warm, Dry Labs Laboratory Tests Test 11/24/20 13:05 11/25/20 00:05 11/25/20 03:40 11/26/20 04:00 White Blood Count 10.0 x10^3/uL (4.0-11.0) 9.2 x10^3/uL (4.0-11.0) Red Blood Count 5.01 x10^6/uL (4.30-5.70) 5.15 x10^6/uL (4.30-5.70) Hemoglobin 13.2 g/dL (13.0-17.5) 13.7 g/dL (13.0-17.5) Hematocrit 40.1 % (39.0-53.0) 41.9 % (39.0-53.0) Mean Corpuscular Volume 80 fL (79-100) 81 fL (79-100) Mean Corpuscular Hemoglobin 26 pg (25-35) 27 pg (25-35) Mean Corpuscular Hemoglobin Concent 33 g/dL (31-37) 33 g/dL (31-37) Red Cell Distribution Width 14.0 % (11.5-14.5) 14.1 % (11.5-14.5) Platelet Count 197 x10^3/uL (140-400) 227 x10^3/uL (140-400) Neutrophils (%) (Auto) 75 % (31-73) 70 % (31-73) Lymphocytes (%) (Auto) 18 % (24-48) 21 % (24-48) Monocytes (%) (Auto) 7 % (0-9) 7 % (0-9) Eosinophils (%) (Auto) 0 % (0-3) 1 % (0-3) Basophils (%) (Auto) 0 % (0-3) 0 % (0-3) Neutrophils # (Auto) 7.5 x10^3/uL (1.8-7.7) 6.4 x10^3/uL (1.8-7.7) Lymphocytes # (Auto) 1.8 x10^3/uL (1.0-4.8) 1.9 x10^3/uL (1.0-4.8) Monocytes # (Auto) 0.7 x10^3/uL (0.0-1.1) 0.7 x10^3/uL (0.0-1.1) Eosinophils # (Auto) 0.0 x10^3/uL (0.0-0.7) 0.1 x10^3/uL (0.0-0.7) Basophils # (Auto) 0.0 x10^3/uL (0.0-0.2) 0.0 x10^3/uL (0.0-0.2) Sodium Level 143 mmol/L (136-145) 139 mmol/L (136-145) 144 mmol/L (136-145) Potassium Level 3.3 mmol/L (3.5-5.1) 4.0 mmol/L (3.5-5.1) 3.7 mmol/L (3.5-5.1) Chloride Level 103 mmol/L (98-107) 104 mmol/L (98-107) 107 mmol/L (98-107) Carbon Dioxide Level 32 mmol/L (21-32) 25 mmol/L (21-32) 27 mmol/L (21-32) Anion Gap 8 (6-14) 10 (6-14) 10 (6-14) Blood Urea Nitrogen 23 mg/dL (8-26) 24 mg/dL (8-26) 15 mg/dL (8-26) Creatinine 1.2 mg/dL (0.7-1.3) 0.9 mg/dL (0.7-1.3) 0.8 mg/dL (0.7-1.3) Estimated GFR (Cockcroft-Gault) 61.1 85.2 97.6 BUN/Creatinine Ratio 19 (6-20) Glucose Level 133 mg/dL (70-99) 101 mg/dL (70-99) 104 mg/dL (70-99) Calcium Level 8.5 mg/dL (8.5-10.1) 8.5 mg/dL (8.5-10.1) 8.8 mg/dL (8.5-10.1) Total Bilirubin 0.7 mg/dL (0.2-1.0) Aspartate Amino Transf (AST/SGOT) 25 U/L (15-37) Alanine Aminotransferase (ALT/SGPT) 17 U/L (16-63) Alkaline Phosphatase 56 U/L (46-116) Total Protein 7.3 g/dL (6.4-8.2) Albumin 3.6 g/dL (3.4-5.0) Albumin/Globulin Ratio 1.0 (1.0-1.7) Urine Collection Type Unknown Urine Color Yellow Urine Clarity Clear Urine pH 6.5 (<5.0-8.0) Urine Specific [place] 1.020 (1.000-1.030) Urine Protein Negative mg/dL (NEG-TRACE) Urine Glucose (UA) Negative mg/dL (NEG) Urine Ketones (Stick) Negative mg/dL (NEG) Urine Blood Negative (NEG) Urine Nitrite Negative (NEG) Urine Bilirubin Negative (NEG) Urine Urobilinogen Dipstick 0.2 mg/dL (0.2 mg/dL) Urine Leukocyte Esterase Negative (NEG) Urine RBC 3-5 /HPF (0-2) Urine WBC 0 /HPF (0-4) Urine Squamous Epithelial Cells Few /LPF Urine Bacteria 0 /HPF (0-FEW) Urine Hyaline Casts Moderate /HPF Urine Mucus Mod /LPF Urine Opiates Screen Pos (NEG) Urine Methadone Screen Neg (NEG) Urine Barbiturates Neg (NEG) Urine Phencyclidine Screen Neg (NEG) Urine Amphetamine/Methamphetamine Neg (NEG) Urine Benzodiazepines Screen Neg (NEG) Urine Cocaine Screen Neg (NEG) Urine Cannabinoids Screen Neg (NEG) Urine Ethyl Alcohol Neg (NEG) Laboratory Tests Test 11/26/20 04:00 White Blood Count 9.2 x10^3/uL (4.0-11.0) Red Blood Count 5.15 x10^6/uL (4.30-5.70) Hemoglobin 13.7 g/dL (13.0-17.5) Hematocrit 41.9 % (39.0-53.0) Mean Corpuscular Volume 81 fL (79-100) Mean Corpuscular Hemoglobin 27 pg (25-35) Mean Corpuscular Hemoglobin Concent 33 g/dL (31-37) Red Cell Distribution Width 14.1 % (11.5-14.5) Platelet Count 227 x10^3/uL (140-400) Neutrophils (%) (Auto) 70 % (31-73) Lymphocytes (%) (Auto) 21 % (24-48) Monocytes (%) (Auto) 7 % (0-9) Eosinophils (%) (Auto) 1 % (0-3) Basophils (%) (Auto) 0 % (0-3) Neutrophils # (Auto) 6.4 x10^3/uL (1.8-7.7) Lymphocytes # (Auto) 1.9 x10^3/uL (1.0-4.8) Monocytes # (Auto) 0.7 x10^3/uL (0.0-1.1) Eosinophils # (Auto) 0.1 x10^3/uL (0.0-0.7) Basophils # (Auto) 0.0 x10^3/uL (0.0-0.2) Sodium Level 144 mmol/L (136-145) Potassium Level 3.7 mmol/L (3.5-5.1) Chloride Level 107 mmol/L (98-107) Carbon Dioxide Level 27 mmol/L (21-32) Anion Gap 10 (6-14) Blood Urea Nitrogen 15 mg/dL (8-26) Creatinine 0.8 mg/dL (0.7-1.3) Estimated GFR (Cockcroft-Gault) 97.6 Glucose Level 104 mg/dL (70-99) Calcium Level 8.8 mg/dL (8.5-10.1) Medications Active Scripts Medications Dose Route/Sig Max Daily Dose Days Date Category Magnesium (Magnesium Oxide) 400 Mg Capsule 1 Cap PO DAILY 30 11/23/20 Reported Losartan Potassium 50 Mg Tablet 50 Mg PO DAILY 11/23/20 Reported Bystolic (Nebivolol) 2.5 Mg Tablet 2.5 Mg PO DAILY 11/23/20 Reported Dovonex (Calcipotriene) 60 Gm Cream..g. 1 Gm TP TID 30 05/15/17 Rx [Triamcinolone 0.1%CR] 1 Applic TP BID 05/13/17 Reported Tylenol (Acetaminophen) 325 Mg Tablet 650 Mg PO BID PRN 05/13/17 Reported Fluticasone Propionate Nasal [place] (Fluticasone Propionate) 16 Gm Big[place].susp 1 [place] NS HS 05/13/17 Reported [Diltiazem CD] 1 Cap PO DAILY 05/13/17 Reported Aspirin Ec (Aspirin) 325 Mg Tablet.dr 1 Tab PO DAILY 05/13/17 Reported Comments CXR IMPRESSION: 1. Left thoracostomy tube overlying the left upper thorax. No convincing pneumothorax is seen. There is stable left lower lobe predominant infiltrate or atelectasis and right basilar atelectasis. 2. Multiple displaced left rib fractures. Impression . IMPRESSION: 1. Status post fall. 2. Abnormal chest x-ray. 3. Left pneumothorax.-improved 4. Rib fractures. 5. Obstructive sleep apnea-hypopnea syndrome. 6. History of coronary artery disease. 7. Hypertension.--uncontrolled Plan . PLAN AND RECOMMENDATIONS: Remains on room air cxr reviewed, no ptx will clamp chest tube today Chest x-ray in the morning NEBS IS at bedside Fall precautions Pain control per primary. Follow surgery recs HTN per IM We would require repeat sleep study as an outpatient. DVT/GI PPX D/W LORI TUTTLE MD Nov 26, 2020 11:39
[2020-11-26] MEDS ORDERED: MIDAZOLAM HCL/PF 2 MG/2 ML VIAL. ONE ×2 (12:46→13:31)
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
[2020-11-26] MEDS ORDERED: LABETALOL 20 MG/4 ML DISP.SYRIN. IVP PRN (13:00)
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
[2020-11-26] MEDS ORDERED: MAGNESIUM CITRATE 296 ML SOLUTION. PO ONE (13:30)
--- NOTE | 2020-11-26 16:20 | NUR ---
Nurse's note: Patient underwent epidural catheter placement by anesthesia. He came back to the unit at 1615, awake, alert, not in respiratory distress and denies pain. VS upon arrival BP 106/51 HR 70 RR 18 O2 sat 94%. Patient was placed on comfortable position, call light placed within reach.
--- NOTE | 2020-11-26 16:25 | NUR ---
Nurse's note: Chest tube on water seal, clamped at 1000; for possible removal tomorrow.
--- NOTE | 2020-11-26 17:28 | PDOC ---
Provider Note Date of Service: DATE: 11/26/20 TIME: 17:13 Provider Note Anesthesia/Pain Service: Patient with ongoing pain due to rib fractures, IV DIRECTOR SALES SUPPORT fentanyl ineffective in controlling pain even after dosing was doubled earlier today. Option of epidural for pain control was presented to patient. Risks and complications discussed by one of my anesthesia partners. Patient opted for thoracic epidural placement. Permit signed. A total of 3 mg of IV Versed and 1- 2 boules of fentanyl off pump was given in divided doses for procedure. Patient to right lateral decubitus position and back prepped and draped. 1% local at T6- 7 level. Several attempts failed by by anesthesia partner. I attempted thoracic epidural at same level with success on first attempt with loss of resistance technique using saline and #18 gauge Hustead needle. Catheter passed easily without CSF, blood, or parathesia. 6-7 cm in space. Taped in place with Benzoin, Steristrips, Opsite, and tape. Neg test dose with 5 ml of 1.5 lido with 1:200k epi. Infusion with Marcaine and fentanyl to be started later. Well tolerated. No apparent complications. Taran Grider MD Justifications for Admission Other Justification trauma with pneumothorax TARAN GRIDER MD Nov 26, 2020 17:28
[2020-11-26] MEDS: BUPIVACAINE MPF 0.5% EPID PRN ×2 (17:35→22:12)
[2020-11-26] MEDS: FENTANYL EPID PRN ×2 (17:35→22:12)
[2020-11-26] MEDS: [UNRECOGNIZED DRUG - OTHER] EPID PRN ×2 (17:35→22:12)
[2020-11-26] MEDS: NORMAL SALINE EPID PRN ×2 (17:35→22:12)
[2020-11-26] MEDS: PSYLLIUM HUSK (SUGAR FREE) 1 PKT PACKET PO SCH (18:00)
--- NOTE | 2020-11-26 18:00 | NUR ---
Nurse's note Fentanyl BIOFUELS PRODUCT DEVELOPMENT MANAGER, wasted 2.9 ml (1st syringe) and 18 ml (2nd syringe) with Myrna SOLIMAN.
[2020-11-26 19:00] VITALS: BP 110/55
[2020-11-26] MEDS: IV NORMAL SALINE 1000ML BAG 1,000 ML IV SCH (19:00)
[2020-11-26] MEDS: ATORVASTATIN CALCIUM 40 MG TABLET. PO SCH (21:00)
[2020-11-26 23:00] VITALS: BP 148/68
[2020-11-27] MEDS: [UNRECOGNIZED DRUG - OTHER] EPID PRN ×7 (02:44→22:17)
[2020-11-27] MEDS: BUPIVACAINE MPF 0.5% EPID PRN ×7 (02:44→22:17)
[2020-11-27] MEDS: NORMAL SALINE EPID PRN ×7 (02:44→22:17)
[2020-11-27] MEDS: FENTANYL EPID PRN ×7 (02:44→22:17)
[2020-11-27 03:00] VITALS: BP 181/89
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
[2020-11-27 07:00] VITALS: BP 183/151
[2020-11-27] MEDS: IPRATRPIUM/ALBUTEROL 0.5/2.5MG 3 ML NEBU. NEB SCH ×4 (07:26→20:52)
[2020-11-27] MEDS: hydrALAZINE 20 MG/ML VIAL. IVP PRN (07:34)
[2020-11-27] MEDS: amLODIPine BESYLATE 5 MG TABLET PO SCH (07:35)
[2020-11-27] MEDS: LOSARTAN POTASSIUM 25 MG TABLET. PO SCH (07:36)
[2020-11-27] MEDS: METOPROLOL TART IMMED RELEASE 25 MG TABLET. PO SCH ×2 (07:37→20:09)
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
[2020-11-27] MEDS: POTASSIUM CHLORIDE 20 MEQ TABLET.ER. PO SCH (08:43)
[2020-11-27] MEDS: ASPIRIN ENTERIC COATED 325 MG TABLET.DR. PO SCH (08:43)
[2020-11-27 09:13] LABS: CHOLESTEROL/HDL RATIO 3.4
--- NOTE | 2020-11-27 09:35 | RAD ---
XR CHEST 1V History: Pneumothorax Comparison: Multiple prior radiographs including 11/26/2020. Technique: Portable AP chest radiograph. Findings: Tubes/lines: Left thoracostomy tube apically oriented with proximal side port projecting in the regio n of the lateral chest wall. Lungs: Improved left lower lobe aeration. Persistent left greater than right lower lobe primarily tanisha ear opacities likely atelectasis. Pleural Spaces: No pleural effusion or pneumothorax. Cardiac Silhouette and pulmonary vasculature: Stable. Osseous Structures and Other: Redemonstrated left rib fractures and left chest wall subcutaneous emph ysema. Impression: 1. Left thoracostomy tube with proximal side-port in the region of the chest wall. No pneumothorax i dentified. 2. Improving left lower lobe aeration with persistent left greater than right bilateral opacities li melia primarily atelectasis. Electronically signed by: Ross Barton MD (11/27/2020 9:33 AM) [facility]
--- NOTE | 2020-11-27 10:35 | PDOC ---
SURGICAL PROGRESS NOTE DATE: 11/27/20 TIME: 10:33 Subjective Pt with c/o left chest pain, min PO secondary to pain Vital Signs Vital Signs Date Time Temp Pulse Resp B/P (MAP) Pulse Ox O2 Delivery O2 Flow Rate FiO2 11/27/20 07:51 Nasal Cannula 1.0 11/27/20 07:37 183/151 11/27/20 07:28 96 11/27/20 07:00 98.7 76 18 98.7 I&O Intake and Output 11/27/20 07:00 Intake Total 410 ml Output Total 425 ml Balance -15 ml Intake Oral 360 ml IV Total 50 ml Output Urine Total 425 ml Chest Tube Drainage Total 0 ml General: Alert, Oriented X3, Cooperative, moderate distress Lungs: Other (left chest tube with serosang drainage) Abdomen: Soft, No tenderness Labs Laboratory Tests Test 11/26/20 04:00 11/26/20 13:00 11/27/20 07:15 White Blood Count 9.2 x10^3/uL (4.0-11.0) Red Blood Count 5.15 x10^6/uL (4.30-5.70) Hemoglobin 13.7 g/dL (13.0-17.5) Hematocrit 41.9 % (39.0-53.0) Mean Corpuscular Volume 81 fL (79-100) Mean Corpuscular Hemoglobin 27 pg (25-35) Mean Corpuscular Hemoglobin Concent 33 g/dL (31-37) Red Cell Distribution Width 14.1 % (11.5-14.5) Platelet Count 227 x10^3/uL (140-400) Neutrophils (%) (Auto) 70 % (31-73) Lymphocytes (%) (Auto) 21 % (24-48) Monocytes (%) (Auto) 7 % (0-9) Eosinophils (%) (Auto) 1 % (0-3) Basophils (%) (Auto) 0 % (0-3) Neutrophils # (Auto) 6.4 x10^3/uL (1.8-7.7) Lymphocytes # (Auto) 1.9 x10^3/uL (1.0-4.8) Monocytes # (Auto) 0.7 x10^3/uL (0.0-1.1) Eosinophils # (Auto) 0.1 x10^3/uL (0.0-0.7) Basophils # (Auto) 0.0 x10^3/uL (0.0-0.2) Sodium Level 144 mmol/L (136-145) Potassium Level 3.7 mmol/L (3.5-5.1) Chloride Level 107 mmol/L (98-107) Carbon Dioxide Level 27 mmol/L (21-32) Anion Gap 10 (6-14) Blood Urea Nitrogen 15 mg/dL (8-26) Creatinine 0.8 mg/dL (0.7-1.3) Estimated GFR (Cockcroft-Gault) 97.6 Glucose Level 104 mg/dL (70-99) Calcium Level 8.8 mg/dL (8.5-10.1) SARS-CoV-2 Antigen (Rapid) Negative (NEGATIVE) Triglycerides Level 92 mg/dL (0-150) Cholesterol Level 167 mg/dL (0-200) LDL Cholesterol, Calculated 100 mg/dL (0-100) VLDL Cholesterol, Calculated 18 mg/dL (0-40) Non-HDL Cholesterol Calculated 118 mg/dL (0-129) HDL Cholesterol 49 mg/dL (40-60) Cholesterol/HDL Ratio 3.4 Laboratory Tests Test 11/26/20 13:00 11/27/20 07:15 SARS-CoV-2 Antigen (Rapid) Negative (NEGATIVE) Triglycerides Level 92 mg/dL (0-150) Cholesterol Level 167 mg/dL (0-200) LDL Cholesterol, Calculated 100 mg/dL (0-100) VLDL Cholesterol, Calculated 18 mg/dL (0-40) Non-HDL Cholesterol Calculated 118 mg/dL (0-129) HDL Cholesterol 49 mg/dL (40-60) Cholesterol/HDL Ratio 3.4 I have reviewed the following CXR with no PTX and improvement Problem List Problems Medical Problems: (1) Head injury Status: Acute (2) Left rib fracture Status: Acute (3) Multiple abrasions Status: Acute (4) Pneumothorax, left Status: Acute Assessment/Plan rib fx appreciate pain service and epidural placement cont pulm toilet Justicifation of Admission Dx: Justifications for Admission: Justification of Admission Dx: Yes Respiratory Failure: Severe Resp Distress DAILY MILLER MD Nov 27, 2020 10:35
[2020-11-27 10:43] VITALS: BP 160/70
--- NOTE | 2020-11-27 12:00 | PDOC ---
PULMONARY PROGRESS NOTES DATE: 11/27/20 TIME: 11:57 Subjective PT. denies increased SOA or cough chest tube clamped Vitals Vital Signs Date Time Temp Pulse Resp B/P (MAP) Pulse Ox O2 Delivery O2 Flow Rate FiO2 11/27/20 11:34 97 Nasal Cannula 2.0 11/27/20 10:43 98.2 72 20 160/70 (100) 98.2 ROS: No Nausea, No Chest Pain, No Abdominal Pain, No Increase Cough General: Alert, Oriented X4 Lungs: Other (left CT ) Cardiovascular: S1, S2 Abdomen: Soft Neuro Exam: Alert Extremities: No Edema Skin: Warm, Dry Labs Laboratory Tests Test 11/26/20 04:00 11/26/20 13:00 11/27/20 07:15 White Blood Count 9.2 x10^3/uL (4.0-11.0) Red Blood Count 5.15 x10^6/uL (4.30-5.70) Hemoglobin 13.7 g/dL (13.0-17.5) Hematocrit 41.9 % (39.0-53.0) Mean Corpuscular Volume 81 fL (79-100) Mean Corpuscular Hemoglobin 27 pg (25-35) Mean Corpuscular Hemoglobin Concent 33 g/dL (31-37) Red Cell Distribution Width 14.1 % (11.5-14.5) Platelet Count 227 x10^3/uL (140-400) Neutrophils (%) (Auto) 70 % (31-73) Lymphocytes (%) (Auto) 21 % (24-48) Monocytes (%) (Auto) 7 % (0-9) Eosinophils (%) (Auto) 1 % (0-3) Basophils (%) (Auto) 0 % (0-3) Neutrophils # (Auto) 6.4 x10^3/uL (1.8-7.7) Lymphocytes # (Auto) 1.9 x10^3/uL (1.0-4.8) Monocytes # (Auto) 0.7 x10^3/uL (0.0-1.1) Eosinophils # (Auto) 0.1 x10^3/uL (0.0-0.7) Basophils # (Auto) 0.0 x10^3/uL (0.0-0.2) Sodium Level 144 mmol/L (136-145) Potassium Level 3.7 mmol/L (3.5-5.1) Chloride Level 107 mmol/L (98-107) Carbon Dioxide Level 27 mmol/L (21-32) Anion Gap 10 (6-14) Blood Urea Nitrogen 15 mg/dL (8-26) Creatinine 0.8 mg/dL (0.7-1.3) Estimated GFR (Cockcroft-Gault) 97.6 Glucose Level 104 mg/dL (70-99) Calcium Level 8.8 mg/dL (8.5-10.1) SARS-CoV-2 Antigen (Rapid) Negative (NEGATIVE) Triglycerides Level 92 mg/dL (0-150) Cholesterol Level 167 mg/dL (0-200) LDL Cholesterol, Calculated 100 mg/dL (0-100) VLDL Cholesterol, Calculated 18 mg/dL (0-40) Non-HDL Cholesterol Calculated 118 mg/dL (0-129) HDL Cholesterol 49 mg/dL (40-60) Cholesterol/HDL Ratio 3.4 Laboratory Tests Test 11/26/20 13:00 11/27/20 07:15 SARS-CoV-2 Antigen (Rapid) Negative (NEGATIVE) Triglycerides Level 92 mg/dL (0-150) Cholesterol Level 167 mg/dL (0-200) LDL Cholesterol, Calculated 100 mg/dL (0-100) VLDL Cholesterol, Calculated 18 mg/dL (0-40) Non-HDL Cholesterol Calculated 118 mg/dL (0-129) HDL Cholesterol 49 mg/dL (40-60) Cholesterol/HDL Ratio 3.4 Medications Active Scripts Medications Dose Route/Sig Max Daily Dose Days Date Category Magnesium (Magnesium Oxide) 400 Mg Capsule 1 Cap PO DAILY 30 11/23/20 Reported Losartan Potassium 50 Mg Tablet 50 Mg PO DAILY 11/23/20 Reported Bystolic (Nebivolol) 2.5 Mg Tablet 2.5 Mg PO DAILY 11/23/20 Reported Dovonex (Calcipotriene) 60 Gm Cream..g. 1 Gm TP TID 30 05/15/17 Rx [Triamcinolone 0.1%CR] 1 Applic TP BID 05/13/17 Reported Tylenol (Acetaminophen) 325 Mg Tablet 650 Mg PO BID PRN 05/13/17 Reported Fluticasone Propionate Nasal [place] (Fluticasone Propionate) 16 Gm [place].susp 1 [place] NS HS 05/13/17 Reported [Diltiazem CD] 1 Cap PO DAILY 05/13/17 Reported Aspirin Ec (Aspirin) 325 Mg Tablet. 1 Tab PO DAILY 05/13/17 Reported Comments CXR IMPRESSION: 1. Left thoracostomy tube overlying the left upper thorax. No convincing pneumothorax is seen. There is stable left lower lobe predominant infiltrate or atelectasis and right basilar atelectasis. 2. Multiple displaced left rib fractures. Impression . IMPRESSION: 1. Status post fall. 2. Abnormal chest x-ray. 3. Left pneumothorax.resolved --DC Chest tube on 11/27 4. Rib fractures. 5. Obstructive sleep apnea-hypopnea syndrome. 6. History of coronary artery disease. 7. Hypertension.--uncontrolled Plan . PLAN AND RECOMMENDATIONS: Remains on room air cxr reviewed, no ptx --CT removed today NEBS IS at bedside Fall precautions HTN per IM We would require repeat sleep study as an outpatient. DVT/GI PPX D/W LORI TUTTLE MD Nov 27, 2020 12:00
[2020-11-27] MEDS ORDERED: MAGNESIUM CITRATE 296 ML SOLUTION. PO ONE (12:30)
[2020-11-27] MEDS: SENNOSIDES/DOCUSATE 8.6/50MG TABLET. PO PRN (13:08)
[2020-11-27] MEDS: IV NORMAL SALINE 1000ML BAG 1,000 ML IV SCH (13:08)
[2020-11-27] MEDS ORDERED: hydroCHLOROthiazide 12.5 MG CAPSULE PO ONE (14:00)
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
--- NOTE | 2020-11-27 14:18 | PDOC ---
Provider Note Date of Service: DATE: 11/27/20 TIME: 14:11 Provider Note Acute pain service/Anesthesia: Patient was seen in early AM today. Epidural infusing at 10 ml/hr. Patient more awake and alert today. Pain ranges from 7 to 10 depending on what patient is doing. VAS 10 with coughing, for example. However patient did sleep as pain was controlled during that period of time. Site not examined as he was still in significant pain. No numbness reported. No side effects noted. Plan: Will increase rate to epidural rate to 14 ml/hr. Pharmacy to place order and notify nursing staff on rate increase. If pain still not controlled will consider pulling catheter back somewhat or increasing pump rate. Taran Grider MD Justifications for Admission Other Justification trauma with pneumothorax TARAN GRIDER MD Nov 27, 2020 14:18
[2020-11-27 14:55] VITALS: BP 192/86
[2020-11-27] MEDS: PSYLLIUM HUSK (SUGAR FREE) 1 PKT PACKET PO SCH (17:37)
[2020-11-27 19:00] VITALS: BP 175/84
[2020-11-27] MEDS: ATORVASTATIN CALCIUM 40 MG TABLET. PO SCH (20:09)
[2020-11-27 23:00] VITALS: BP 160/82
[2020-11-28] VITALS (7 sets, daily range): BP systolic 144–189; BP diastolic 72–116
[2020-11-28] MEDS: BUPIVACAINE MPF 0.5% EPID PRN ×6 (02:28→21:02)
[2020-11-28] MEDS: [UNRECOGNIZED DRUG - OTHER] EPID PRN ×6 (02:28→21:02)
[2020-11-28] MEDS: FENTANYL EPID PRN ×6 (02:28→21:02)
[2020-11-28] MEDS: NORMAL SALINE EPID PRN ×6 (02:28→21:02)
[2020-11-28] MEDS: IV NORMAL SALINE 1000ML BAG 1,000 ML IV SCH ×3 (05:01→21:03)
[2020-11-28] MEDS: IPRATRPIUM/ALBUTEROL 0.5/2.5MG 3 ML NEBU. NEB SCH ×4 (07:43→20:37)
[2020-11-28] MEDS ORDERED: CONTRAST GIVEN. MC PRN (09:15)
[2020-11-28] MEDS ORDERED: IOHEXOL 350 MG/ML 100 ML VIAL. IV ONE (09:15)
[2020-11-28 09:21] LABS: HEMATOCRIT 37.8 % (39.0-53.0); HEMOGLOBIN 12.3 g/dL (13.0-17.5); RED BLOOD COUNT 4.6 x10^6/uL (4.30-5.70); RED CELL DISTRIBUTION WIDTH 14.2 % (11.5-14.5); WHITE BLOOD COUNT 8.1 x10^3/uL (4.0-11.0)
[2020-11-28] MEDS: ASPIRIN ENTERIC COATED 325 MG TABLET.DR. PO SCH (10:56)
[2020-11-28] MEDS: METOPROLOL TART IMMED RELEASE 25 MG TABLET. PO SCH ×2 (10:56→20:57)
[2020-11-28] MEDS: amLODIPine BESYLATE 5 MG TABLET PO SCH (10:56)
[2020-11-28] MEDS: hydroCHLOROthiazide 12.5 MG CAPSULE PO SCH (10:57)
[2020-11-28] MEDS: LOSARTAN POTASSIUM 50 MG TABLET. PO SCH (10:57)
[2020-11-28] MEDS: POTASSIUM CHLORIDE 20 MEQ TABLET.ER. PO SCH (10:59)
--- NOTE | 2020-11-28 11:31 | PDOC ---
PULMONARY PROGRESS NOTES DATE: 11/28/20 TIME: 11:30 Subjective PT. denies increased SOA or cough S/P chest tube DC on 11/27 no overnight events Continues to have left sided chest pain Vitals Vital Signs Date Time Temp Pulse Resp B/P (MAP) Pulse Ox O2 Delivery O2 Flow Rate FiO2 11/28/20 11:00 99.7 92 18 189/116 (140) 92 Room Air 99.7 11/28/20 07:44 2.0 ROS: No Nausea, No Abdominal Pain, No Increase Cough General: Alert, Oriented X4 Lungs: Clear, Other Cardiovascular: S1, S2 Abdomen: Soft Neuro Exam: Alert, Oriented Extremities: No Edema Skin: Warm, Dry Labs Laboratory Tests Test 11/26/20 13:00 11/27/20 07:15 11/28/20 08:15 SARS-CoV-2 Antigen (Rapid) Negative (NEGATIVE) Triglycerides Level 92 mg/dL (0-150) Cholesterol Level 167 mg/dL (0-200) LDL Cholesterol, Calculated 100 mg/dL (0-100) VLDL Cholesterol, Calculated 18 mg/dL (0-40) Non-HDL Cholesterol Calculated 118 mg/dL (0-129) HDL Cholesterol 49 mg/dL (40-60) Cholesterol/HDL Ratio 3.4 White Blood Count 8.1 x10^3/uL (4.0-11.0) Red Blood Count 4.60 x10^6/uL (4.30-5.70) Hemoglobin 12.3 g/dL (13.0-17.5) Hematocrit 37.8 % (39.0-53.0) Mean Corpuscular Volume 82 fL (79-100) Mean Corpuscular Hemoglobin 27 pg (25-35) Mean Corpuscular Hemoglobin Concent 33 g/dL (31-37) Red Cell Distribution Width 14.2 % (11.5-14.5) Platelet Count 246 x10^3/uL (140-400) Laboratory Tests Test 11/28/20 08:15 White Blood Count 8.1 x10^3/uL (4.0-11.0) Red Blood Count 4.60 x10^6/uL (4.30-5.70) Hemoglobin 12.3 g/dL (13.0-17.5) Hematocrit 37.8 % (39.0-53.0) Mean Corpuscular Volume 82 fL (79-100) Mean Corpuscular Hemoglobin 27 pg (25-35) Mean Corpuscular Hemoglobin Concent 33 g/dL (31-37) Red Cell Distribution Width 14.2 % (11.5-14.5) Platelet Count 246 x10^3/uL (140-400) Medications Active Scripts Medications Dose Route/Sig Max Daily Dose Days Date Category Magnesium (Magnesium Oxide) 400 Mg Capsule 1 Cap PO DAILY 30 11/23/20 Reported Losartan Potassium 50 Mg Tablet 50 Mg PO DAILY 11/23/20 Reported Bystolic (Nebivolol) 2.5 Mg Tablet 2.5 Mg PO DAILY 11/23/20 Reported Dovonex (Calcipotriene) 60 Gm Cream..g. 1 Gm TP TID 30 05/15/17 Rx [Triamcinolone 0.1%CR] 1 Applic TP BID 05/13/17 Reported Tylenol (Acetaminophen) 325 Mg Tablet 650 Mg PO BID PRN 05/13/17 Reported Fluticasone Propionate Nasal [place] (Fluticasone Propionate) 16 Gm [place].susp 1 [place] NS HS 05/13/17 Reported [Diltiazem CD] 1 Cap PO DAILY 05/13/17 Reported Aspirin Ec (Aspirin) 325 Mg Tablet.dr 1 Tab PO DAILY 05/13/17 Reported Comments CXR IMPRESSION: 1. Left thoracostomy tube overlying the left upper thorax. No convincing pneumothorax is seen. There is stable left lower lobe predominant infiltrate or atelectasis and right basilar atelectasis. 2. Multiple displaced left rib fractures. Impression . IMPRESSION: 1. Status post fall. 2. Abnormal chest x-ray. 3. Left pneumothorax.resolved --DC Chest tube on 11/27 4. Rib fractures. 5. Obstructive sleep apnea-hypopnea syndrome. 6. History of coronary artery disease. 7. Hypertension.--uncontrolled Plan . PLAN AND RECOMMENDATIONS: Remains on room air cxr reviewed, no ptx --CT removed 11/27 NEBS IS at bedside Fall precautions Follow cardiology recs We would require repeat sleep study as an outpatient. PT/OT Pain management per IM/surgery DVT/GI PPX D/W LORI TUTTLE MD Nov 28, 2020 11:31
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
[2020-11-28] MEDS ORDERED: MORPHINE SULFATE 2 MG/ML VIAL. IV PRN (13:30)
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
[2020-11-28] MEDS ORDERED: amLODIPine BESYLATE 5 MG TABLET PO ONE (14:00)
--- NOTE | 2020-11-28 14:43 | PDOC ---
Provider Note Date of Service: DATE: 11/28/20 TIME: 14:35 Provider Note Acute pain service/Anesthesia: Patient was seen in early AM today. Epidural infusing at 14 ml/hr with Marcaine and fentanyl. Patient awake and alert today. Pain ranges from 0 to 10 depending on what patient is doing. VAS 10 with coughing, for example. However, he is pain free at times. Site clean and dry. No numbness reported. No side effects noted. Overall, patient is happy for improvement of pain. Plan: Will continue rate of epidural at 14 ml/hr. Will start weaning tomorrow with plan of stopping and removing catheter in 2 days (Thursday) Discussed with Dr. Toussaint . Taran Grider MD Justifications for Admission Other Justification trauma with pneumothorax TARAN GRIDER MD Nov 28, 2020 14:43
--- NOTE | 2020-11-28 15:04 | RAD ---
INDICATION: Reason: Pulmonary embolism, assess for DVT / Spl. Instructions: / History: COMPARISON: None. TECHNIQUE: Grayscale, color and doppler ultrasound images were obtained of the bilateral lower extrem ity venous vasculature. RIGHT: No thrombus identified in the common femoral vein, femoral vein, popliteal vein or visualized calf ve ins. LEFT: No thrombus identified in the common femoral vein, femoral vein, popliteal vein or visualized calf ve ins. IMPRESSION: * No thrombus identified in deep venous system of bilateral lower extremities. Electronically signed by: Gautam Jane MD (11/28/2020 3:02 PM) [id number]
[2020-11-28] MEDS: PSYLLIUM HUSK (SUGAR FREE) 1 PKT PACKET PO SCH (16:51)
[2020-11-28] MEDS: CYCLOBENZAPRINE 10 MG TABLET. PO PRN (16:52)
--- NOTE | 2020-11-28 18:28 | PDOC ---
SURGICAL PROGRESS NOTE DATE: 11/28/20 TIME: 18:25 Subjective Pt reports feeling better, nichole diet, chest tube out, breathing better Vital Signs Vital Signs Date Time Temp Pulse Resp B/P (MAP) Pulse Ox O2 Delivery O2 Flow Rate FiO2 11/28/20 16:47 18 Room Air 11/28/20 16:26 70 157/85 11/28/20 16:15 95 11/28/20 15:00 98.7 98.7 11/28/20 07:44 2.0 I&O Intake and Output 11/28/20 07:00 Intake Total 1699 ml Output Total 700 ml Balance 999 ml Intake Oral 600 ml Blood Product IV Normal Saline Flush 1099 ml Output Urine Total 700 ml # Bowel Movements 1 General: Alert, Oriented X3, Cooperative, No acute distress HEENT: EOMI Lungs: Normal air movement Abdomen: Soft, No tenderness Skin: No rashes, No breakdown Neuro: Normal speech, Sensation intact Psych/Mental Status: Mental status NL, Mood NL Labs Laboratory Tests Test 11/27/20 07:15 11/28/20 08:15 Triglycerides Level 92 mg/dL (0-150) Cholesterol Level 167 mg/dL (0-200) LDL Cholesterol, Calculated 100 mg/dL (0-100) VLDL Cholesterol, Calculated 18 mg/dL (0-40) Non-HDL Cholesterol Calculated 118 mg/dL (0-129) HDL Cholesterol 49 mg/dL (40-60) Cholesterol/HDL Ratio 3.4 White Blood Count 8.1 x10^3/uL (4.0-11.0) Red Blood Count 4.60 x10^6/uL (4.30-5.70) Hemoglobin 12.3 g/dL (13.0-17.5) Hematocrit 37.8 % (39.0-53.0) Mean Corpuscular Volume 82 fL (79-100) Mean Corpuscular Hemoglobin 27 pg (25-35) Mean Corpuscular Hemoglobin Concent 33 g/dL (31-37) Red Cell Distribution Width 14.2 % (11.5-14.5) Platelet Count 246 x10^3/uL (140-400) Laboratory Tests Test 11/28/20 08:15 White Blood Count 8.1 x10^3/uL (4.0-11.0) Red Blood Count 4.60 x10^6/uL (4.30-5.70) Hemoglobin 12.3 g/dL (13.0-17.5) Hematocrit 37.8 % (39.0-53.0) Mean Corpuscular Volume 82 fL (79-100) Mean Corpuscular Hemoglobin 27 pg (25-35) Mean Corpuscular Hemoglobin Concent 33 g/dL (31-37) Red Cell Distribution Width 14.2 % (11.5-14.5) Platelet Count 246 x10^3/uL (140-400) I have reviewed the following CT demonstrates bilateral pulmonary emboli Problem List Problems Medical Problems: (1) Head injury Status: Acute (2) Left rib fracture Status: Acute (3) Multiple abrasions Status: Acute (4) Pneumothorax, left Status: Acute Assessment/Plan cont pain control for rib fractures, pt able to breath better will start hep SQ for PE, despite epidural, but will ask nursing to OK with other service lines. pt does not appear symptomatic from this, but would favor heparin to prevent increased clot burden should be tolerable risk with epidural in. Justicifation of Admission Dx: Justifications for Admission: Justification of Admission Dx: Yes Respiratory Failure: Severe Resp Distress Sepsis: Hypoxemia DAILY MILLER MD Nov 28, 2020 18:28
[2020-11-28] MEDS ORDERED: HEPARIN for SUB-Q USE 5,000 UNIT/ML VIAL. SQ SCH (19:00)
[2020-11-28] MEDS: ATORVASTATIN CALCIUM 40 MG TABLET. PO SCH (20:58)
[2020-11-29] MEDS: NORMAL SALINE EPID PRN ×7 (00:44→23:07)
[2020-11-29] MEDS: BUPIVACAINE MPF 0.5% EPID PRN ×7 (00:44→23:07)
[2020-11-29] MEDS: FENTANYL EPID PRN ×7 (00:44→23:07)
[2020-11-29] MEDS: [UNRECOGNIZED DRUG - OTHER] EPID PRN ×7 (00:44→23:07)
[2020-11-29 03:12] VITALS: BP 127/63
[2020-11-29 07:00] VITALS: BP 170/84
[2020-11-29] MEDS: IPRATRPIUM/ALBUTEROL 0.5/2.5MG 3 ML NEBU. NEB SCH ×4 (07:57→20:27)
[2020-11-29] MEDS: POTASSIUM CHLORIDE 20 MEQ TABLET.ER. PO SCH (08:12)
[2020-11-29] MEDS: hydroCHLOROthiazide 12.5 MG CAPSULE PO SCH (08:15)
[2020-11-29] MEDS: METOPROLOL TART IMMED RELEASE 25 MG TABLET. PO SCH ×2 (08:15→20:55)
[2020-11-29] MEDS: amLODIPine BESYLATE 10 MG TABLET PO SCH (08:15)
[2020-11-29] MEDS: ASPIRIN ENTERIC COATED 325 MG TABLET.DR. PO SCH (08:16)
[2020-11-29] MEDS: LOSARTAN POTASSIUM 50 MG TABLET. PO SCH (08:16)
[2020-11-29] MEDS: SENNOSIDES/DOCUSATE 8.6/50MG TABLET. PO PRN (08:17)
[2020-11-29 11:00] VITALS: BP 164/92
[2020-11-29] MEDS: IV NORMAL SALINE 1000ML BAG 1,000 ML IV SCH (12:56)
--- NOTE | 2020-11-29 13:02 | PDOC ---
PULMONARY PROGRESS NOTES DATE: 11/29/20 TIME: 12:26 Subjective PT. denies increased SOA or cough, now on room air up to chair today S/P chest tube DC on 11/27 no overnight events epidural still in place Vitals Vital Signs Date Time Temp Pulse Resp B/P (MAP) Pulse Ox O2 Delivery O2 Flow Rate FiO2 11/29/20 12:25 18 Room Air 11/29/20 11:00 98.3 68 164/92 (116) 94 2.0 98.3 ROS: No Nausea, No Abdominal Pain, No Increase Cough General: Alert, Oriented X4 Lungs: Clear, Other Cardiovascular: S1, S2 Abdomen: Soft Neuro Exam: Alert, Oriented Extremities: No Edema Skin: Warm, Dry Labs Laboratory Tests Test 11/28/20 08:15 White Blood Count 8.1 x10^3/uL (4.0-11.0) Red Blood Count 4.60 x10^6/uL (4.30-5.70) Hemoglobin 12.3 g/dL (13.0-17.5) Hematocrit 37.8 % (39.0-53.0) Mean Corpuscular Volume 82 fL (79-100) Mean Corpuscular Hemoglobin 27 pg (25-35) Mean Corpuscular Hemoglobin Concent 33 g/dL (31-37) Red Cell Distribution Width 14.2 % (11.5-14.5) Platelet Count 246 x10^3/uL (140-400) Medications Active Scripts Medications Dose Route/Sig Max Daily Dose Days Date Category Magnesium (Magnesium Oxide) 400 Mg Capsule 1 Cap PO DAILY 30 11/23/20 Reported Losartan Potassium 50 Mg Tablet 50 Mg PO DAILY 11/23/20 Reported Bystolic (Nebivolol) 2.5 Mg Tablet 2.5 Mg PO DAILY 11/23/20 Reported Dovonex (Calcipotriene) 60 Gm Cream..g. 1 Gm TP TID 30 05/15/17 Rx [Triamcinolone 0.1%CR] 1 Applic TP BID 05/13/17 Reported Tylenol (Acetaminophen) 325 Mg Tablet 650 Mg PO BID PRN 05/13/17 Reported Fluticasone Propionate Nasal [place] (Fluticasone Propionate) 16 Gm [place].susp 1 [place] NS HS 05/13/17 Reported [Diltiazem CD] 1 Cap PO DAILY 05/13/17 Reported Aspirin Ec (Aspirin) 325 Mg Tablet.dr [place] Tab PO DAILY 05/13/17 Reported Comments CXR IMPRESSION: 1. Left thoracostomy tube overlying the left upper thorax. No convincing pneumothorax is seen. There is stable left lower lobe predominant infiltrate or atelectasis and right basilar atelectasis. 2. Multiple displaced left rib fractures. CTA chest IMPRESSION: 1. Bilateral lower lobe pulmonary emboli. This is not well assessed given utilization of a dissection protocol for this exam. 2. Multiple segmental displaced left rib fractures, described in detail above. Fractures are seen involving the second through ninth left ribs. There is an associated left chest wall soft tissue contusion and soft tissue gas, left lung contusion and a small left pleural effusion which may be due to a hemothorax. The recently demonstrated pneumothorax is no longer seen. 3. No evidence of aortic dissection or aneurysm. There is ectasia of the in frarenal abdominal aorta to a caliber of 2.8 cm. 4. Multilevel degenerative change involving the thoracic and lumbar spine, resu lting in significant foraminal and central canal stenosis at the aforementioned levels. 5. No convincing acute thoracic or lumbar spine trauma. However, there are foci of gas within the suspected epidural space at multiple thoracic levels. This may be within epidural veins and related to surrounding soft tissue emphysema. 6. 5.0 cm fluid collection within a small fat-containing umbilical hernia. Impression . IMPRESSION: 1. Status post fall. 2. Abnormal chest x-ray. 3. Left pneumothorax.resolved --DC Chest tube on 11/27 4. Rib fractures.(TOTAL 6) 5. Obstructive sleep apnea-hypopnea syndrome. 6. History of coronary artery disease. 7. Hypertension.--uncontrolled 8. Bilateral PE / Small, mostly LLL Plan . PLAN AND RECOMMENDATIONS: Remains on room air cxr reviewed, no ptx --CT removed 11/27 CTA chest showed small Bilateral PE , mostly LLL. however AC is contraindicated in setting of Epidural, PE is clinically less significant and risk of AC outweighs enefits. plan to DC epidural cath and transition to PO pain medications Start heparin gtt 24 hours after DC of epidural cath, and plan to transition to Eliquis po BLE U/S neg for DVT no need for IVC filter NEBS IS at bedside Fall precautions Follow cardiology recs We would require repeat sleep study as an outpatient. PT/OT DVT/GI PPX d/w in detail with Dr Toussaint D/W LORI TUTTLE MD Nov 29, 2020 12:29
--- NOTE | 2020-11-29 13:14 | PDOC ---
SURGICAL PROGRESS NOTE DATE: 11/29/20 TIME: 13:09 Subjective up in chair coughing,had some increased pain Vital Signs Vital Signs Date Time Temp Pulse Resp B/P (MAP) Pulse Ox O2 Delivery O2 Flow Rate FiO2 11/29/20 12:25 18 Room Air 11/29/20 11:00 98.3 68 164/92 (116) 94 2.0 98.3 I&O Intake and Output 11/29/20 07:00 Intake Total 650 ml Output Total 2655 ml Balance -2005 ml Intake Oral 400 ml IV Total 250 ml Output Urine Total 2655 ml General: Alert, Cooperative Abdomen: Soft Labs Laboratory Tests Test 11/28/20 08:15 White Blood Count 8.1 x10^3/uL (4.0-11.0) Red Blood Count 4.60 x10^6/uL (4.30-5.70) Hemoglobin 12.3 g/dL (13.0-17.5) Hematocrit 37.8 % (39.0-53.0) Mean Corpuscular Volume 82 fL (79-100) Mean Corpuscular Hemoglobin 27 pg (25-35) Mean Corpuscular Hemoglobin Concent 33 g/dL (31-37) Red Cell Distribution Width 14.2 % (11.5-14.5) Platelet Count 246 x10^3/uL (140-400) Problem List Problems Medical Problems: (1) Head injury Status: Acute (2) Left rib fracture Status: Acute (3) Multiple abrasions Status: Acute (4) Pneumothorax, left Status: Acute Assessment/Plan pulmonary following work toward removing epidural and anticoagulant no surgical needs Justicifation of Admission Dx: Justifications for Admission: Justification of Admission Dx: Yes Respiratory Failure: Severe Resp Distress Sepsis: Hypoxemia RUTH ANN JOHN FIN[employer]CIAL SERVICES DIRECTOR Nov 29, 2020 13:14
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
[2020-11-29 15:00] VITALS: BP 117/58
[2020-11-29] MEDS: hydrALAZINE 20 MG/ML VIAL. IVP PRN (15:46)
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
[2020-11-29] MEDS: PSYLLIUM HUSK (SUGAR FREE) 1 PKT PACKET PO SCH (17:17)
[2020-11-29] MEDS: HYDROcodone/APAP 5/325MG 1 TAB TABLET PO PRN ×2 (17:17→21:28)
[2020-11-29 19:00] VITALS: BP 185/100
[2020-11-29] MEDS: ATORVASTATIN CALCIUM 40 MG TABLET. PO SCH (20:55)
[2020-11-29] MEDS: CYCLOBENZAPRINE 10 MG TABLET. PO PRN (20:55)
[2020-11-29] MEDS ORDERED: KETOROLAC 30 MG/ML VIAL. IVP ONE (22:00)
[2020-11-29] MEDS: LORazepam 0.5 MG TABLET PO PRN (22:34)
[2020-11-29 23:00] VITALS: BP 145/72
[2020-11-30] MEDS: ACETAMINOPHEN 500 MG TABLET PO SCH ×4 (01:25→18:22)
[2020-11-30] MEDS: NORMAL SALINE EPID PRN ×2 (02:38→06:15)
[2020-11-30] MEDS: [UNRECOGNIZED DRUG - OTHER] EPID PRN ×2 (02:38→06:15)
[2020-11-30] MEDS: BUPIVACAINE MPF 0.5% EPID PRN ×2 (02:38→06:15)
[2020-11-30] MEDS: FENTANYL EPID PRN ×2 (02:38→06:15)
[2020-11-30] MEDS: IBUPROFEN 200 MG TABLET. PO SCH ×3 (04:47→18:22)
[2020-11-30] MEDS: IV NORMAL SALINE 1000ML BAG 1,000 ML IV SCH ×2 (04:48→21:02)
[2020-11-30 07:00] VITALS: BP 121/51
[2020-11-30] MEDS: IPRATRPIUM/ALBUTEROL 0.5/2.5MG 3 ML NEBU. NEB SCH ×4 (07:30→20:27)
[2020-11-30] MEDS: ASPIRIN ENTERIC COATED 325 MG TABLET.DR. PO SCH (08:07)
[2020-11-30] MEDS: hydroCHLOROthiazide 12.5 MG CAPSULE PO SCH (08:07)
[2020-11-30] MEDS: LOSARTAN POTASSIUM 50 MG TABLET. PO SCH (08:09)
[2020-11-30] MEDS: amLODIPine BESYLATE 10 MG TABLET PO SCH (08:10)
[2020-11-30] MEDS: POTASSIUM CHLORIDE 20 MEQ TABLET.ER. PO SCH (08:10)
[2020-11-30] MEDS: METOPROLOL TART IMMED RELEASE 25 MG TABLET. PO SCH ×2 (08:11→21:01)
--- NOTE | 2020-11-30 10:29 | PDOC ---
PULMONARY PROGRESS NOTES DATE: 11/30/20 TIME: 10:29 Subjective Patient sitting up in a chair, had an epidural removed not more short of air S/P chest tube DC on 11/27 Vitals Vital Signs Date Time Temp Pulse Resp B/P (MAP) Pulse Ox O2 Delivery O2 Flow Rate FiO2 11/30/20 08:11 63 121/51 11/30/20 07:30 94 Room Air 11/30/20 07:00 98.0 20 98.0 11/30/20 06:15 2.0 ROS: No Nausea, No Abdominal Pain, No Increase Cough General: Alert, Oriented X4 Lungs: Clear, Other Cardiovascular: S1, S2 Abdomen: Soft Neuro Exam: Alert, Oriented Extremities: No Edema Skin: Warm, Dry Medications Active Scripts Medications Dose Route/Sig Max Daily Dose Days Date Category Magnesium (Magnesium Oxide) 400 Mg Capsule 1 Cap PO DAILY 30 11/23/20 Reported Losartan Potassium 50 Mg Tablet 50 Mg PO DAILY 11/23/20 Reported Bystolic (Nebivolol) 2.5 Mg Tablet 2.5 Mg PO DAILY 11/23/20 Reported Dovonex (Calcipotriene) 60 Gm Cream..g. 1 Gm TP TID 30 05/15/17 Rx [Triamcinolone 0.1%CR] 1 Applic TP BID 05/13/17 Reported Tylenol (Acetaminophen) 325 Mg Tablet 650 Mg PO BID PRN 05/13/17 Reported Fluticasone Propionate Nasal [place] (Fluticasone Propionate) 16 Gm [place].susp 1 [place] NS HS 05/13/17 Reported [Diltiazem CD] 1 Cap PO DAILY 05/13/17 Reported Aspirin Ec (Aspirin) 325 Mg Tablet.dr 1 Tab PO DAILY 05/13/17 Reported Comments CXR IMPRESSION: 1. Left thoracostomy tube overlying the left upper thorax. No convincing pneumothorax is seen. There is stable left lower lobe predominant infiltrate or atelectasis and right basilar atelectasis. 2. Multiple displaced left rib fractures. CTA chest IMPRESSION: 1. Bilateral lower lobe pulmonary emboli. This is not well assessed given utilization of a dissection protocol for this exam. 2. Multiple segmental displaced left rib fractures, described in detail above. Fractures are seen involving the second through ninth left ribs. There is an associated left chest wall soft tissue contusion and soft tissue gas, left lung contusion and a small left pleural effusion which may be due to a hemothorax. The recently demonstrated pneumothorax is no longer seen. 3. No evidence of aortic dissection or aneurysm. There is ectasia of the infrarenal abdominal aorta to a caliber of 2.8 cm. 4. Multilevel degenerative change involving the thoracic and lumbar spine, resulting in significant foraminal and central canal stenosis at the aforem entioned levels. 5. No convincing acute thoracic or lumbar spine trauma. However, there are foci of gas within the suspected epidural space at multiple thoracic levels. This may be within epidural veins and related to surrounding soft tissue emphysema. 6. 5.0 cm fluid collection within a small fat-containing umbilical hernia. Impression . IMPRESSION: 1. Status post fall. 2. Abnormal chest x-ray. 3. Left pneumothorax.resolved --DC Chest tube on 11/27 4. Rib fractures.(TOTAL 6) 5. Obstructive sleep apnea-hypopnea syndrome. 6. History of coronary artery disease. 7. Hypertension.--uncontrolled 8. Bilateral PE / Small, mostly LLL Plan . Updated 430 Epidural removed approximately 11 AM We will initiate anticoagulation when okay with anesthesia Remains on room air Respiratory status PLAN AND RECOMMENDATIONS: Remains on room air cxr reviewed, no ptx --CT removed 11/27 CTA chest showed small Bilateral PE , mostly LLL. however AC is contraindicated in setting of Epidural, PE is clinically less significant and risk of AC outweighs enefits. plan to DC epidural cath and transition to PO pain medications Start heparin gtt 24 hours after DC of epidural cath, and plan to transition to Eliquis po BLE U/S neg for DVT no need for IVC filter NEBS IS at bedside Fall precautions Follow cardiology recs We would require repeat sleep study as an outpatient. PT/OT DVT/GI PPX d/w in detail with Dr Toussaint D/W JD ROMERO MD Nov 30, 2020 10:29
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
[2020-11-30 11:00] VITALS: BP 147/84
--- NOTE | 2020-11-30 11:36 | PDOC ---
Provider Note Date of Service: DATE: 11/30/20 TIME: 11:30 Provider Note Pain/Anesthesia Service: Overall pain has improved. Thoracic epidural DC'ed intact toady at 11:30. Site clean and dry. No swelling or redness. Dressed with Betadine, alcohol, and Bandaid. Epidural pump stopped. OK to start anticoagulation in either 12 or 24 hrs from now depending on anticoagulant of choice. IV fentanyl to be started per Dr. Toussaint. Taran Grider MD Justifications for Admission Other Justification trauma with pneumothorax TARAN GRIDER MD Nov 30, 2020 11:36
[2020-11-30] MEDS ORDERED: MAGNESIUM CITRATE 296 ML SOLUTION. PO ONE (13:30)
[2020-11-30] MEDS: HYDROcodone/APAP 5/325MG 1 TAB TABLET PO PRN (13:43)
[2020-11-30] MEDS: fentaNYL PF VIAL 100 MCG/2 ML VIAL IVP PRN ×4 (14:28→20:59)
[2020-11-30 15:00] VITALS: BP 136/62
[2020-11-30] MEDS: LORazepam 0.5 MG TABLET PO PRN ×2 (15:46→21:01)
[2020-11-30] MEDS: CYCLOBENZAPRINE 10 MG TABLET. PO PRN (15:46)
[2020-11-30] MEDS: PSYLLIUM HUSK (SUGAR FREE) 1 PKT PACKET PO SCH (18:27)
[2020-11-30 19:00] VITALS: BP 161/89
[2020-11-30] MEDS: ATORVASTATIN CALCIUM 40 MG TABLET. PO SCH (21:01)
[2020-11-30 23:01] VITALS: BP 146/76
[2020-12-01] MEDS: IBUPROFEN 200 MG TABLET. PO SCH (00:11)
[2020-12-01] MEDS: fentaNYL PF VIAL 100 MCG/2 ML VIAL IVP PRN ×7 (00:11→20:18)
[2020-12-01] MEDS: ACETAMINOPHEN 500 MG TABLET PO SCH ×4 (00:11→18:47)
--- NOTE | 2020-12-01 01:25 | NUR ---
Pt called out, complaining of SOA, dyspnea. O2 sat on room air was 84%. Pt is very anxious and tachypneic. Pt placed on NC, oxygen level slowly up to 90%. Pt placed on NRB and Rapid Response called. Krystal MANAGER FURNITURE, RT and gear repair supervisor responded. Per RR, orders for EKG, CXR, ABG obtained. Pts oxygen level up to 95-98% on NRB. Krystal called and spoke with Dr. Espinoza regarding CXR, ABG results. See orders. Will monitor.
[2020-12-01] MEDS: LORazepam 0.5 MG TABLET PO PRN ×5 (01:45→23:03)
[2020-12-01] MEDS: HYDROcodone/APAP 5/325MG 1 TAB TABLET PO PRN ×2 (01:53→08:40)
[2020-12-01 01:58] LABS: BASE EXCESS ABG 0 mmol/L (-3-3); HCO3 ABG 24 mmol/L (21-28); PCO2 ABG 39 mmHg (35-46); PO2 ABG 84 mmHg (65-108); SAT O2 ABG 97 % (92-99)
--- NOTE | 2020-12-01 02:10 | RAD ---
Single view chest dated 12/01/2020. Comparison made to 11/27/2020. CLINICAL INDICATION: Change in condition. Findings: Single upright portable exam performed. Heart size is mildly enlarged, stable. There is consolidation at the retrocardiac left base, new from prior study. Blunting of left costophrenic sulcus suggesting moderate size pleural effusion. There is mild patchy increased density at the right base. No pneumot horax. IMPRESSION: 1. Left basilar consolidation, atelectasis versus pneumonia. There is a suspected moderate sized left pleural effusion. 2. Mild patchy opacity at the right lung base, likely atelectasis. Electronically signed by: Huber Urrutia MD (12/01/2020 2:08 AM) PORTER
[2020-12-01 02:17] LABS: FIO2 ABG 100
--- NOTE | 2020-12-01 02:17 | EKG ---
[facility] [address] [place] [address] Test Date: 2020-12-01 Test Time: 02:18:14 Pat Name: ANDREW LARSEN Department: Room: [facility] Gender: M Neon Tube Bender: ASHWINI : 1955 Requested By: MAYNOR MOORE Order Number: [id number] Reading MD: Measurements Intervals Witten Rate: 92 P: 36 SD: 156 QRS: 24 QRSD: 98 T: 52 QT: 354 QTc: 443 Interpretive Statements SINUS RHYTHM NORMAL ECG RI6.01 No previous ECG available for comparison
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
[2020-12-01] MEDS: cefTRIAXone IV Push 1 GM VIAL. IVP SCH (03:10)
[2020-12-01 03:32] VITALS: BP 113/85
[2020-12-01] MEDS: KETOROLAC 15 MG/ML VIAL. IVP PRN ×2 (03:54→11:38)
[2020-12-01 04:24] LABS: ALBUMIN 2.5 g/dL (3.4-5.0); ALBUMIN/GLOBULIN RATIO 0.6 (1.0-1.7); CALCIUM 8.2 mg/dL (8.5-10.1); GFR 75.5; MAGNESIUM 2.4 mg/dL (1.8-2.4); PHOSPHORUS 2.6 mg/dL (2.6-4.7); POTASSIUM 3.9 mmol/L (3.5-5.1); TOTAL BILIRUBIN 0.5 mg/dL (0.2-1.0); TOTAL PROTEIN 6.8 g/dL (6.4-8.2)
[2020-12-01 07:00] VITALS: BP 172/77
[2020-12-01] MEDS: IPRATRPIUM/ALBUTEROL 0.5/2.5MG 3 ML NEBU. NEB SCH ×4 (07:29→18:33)
[2020-12-01] MEDS: METOPROLOL TART IMMED RELEASE 25 MG TABLET. PO SCH ×2 (08:43→20:17)
[2020-12-01] MEDS: ASPIRIN ENTERIC COATED 81 MG TABLET.DR. PO SCH (08:44)
[2020-12-01] MEDS: hydroCHLOROthiazide 12.5 MG CAPSULE PO SCH (08:44)
[2020-12-01] MEDS: LOSARTAN POTASSIUM 50 MG TABLET. PO SCH (08:44)
[2020-12-01] MEDS: POTASSIUM CHLORIDE 20 MEQ TABLET.ER. PO SCH (08:45)
[2020-12-01] MEDS: amLODIPine BESYLATE 10 MG TABLET PO SCH (08:45)
--- NOTE | 2020-12-01 09:41 | PDOC ---
SURGICAL PROGRESS NOTE DATE: 12/01/20 TIME: 09:46 Subjective feeling better now RR for SOA, hypoxia in political worker epidural now out Vital Signs Vital Signs Date Time Temp Pulse Resp B/P (MAP) Pulse Ox O2 Delivery O2 Flow Rate FiO2 12/01/20 09:28 95 Room Air 2.0 12/01/20 08:45 84 172/77 12/01/20 07:00 97.7 22 97.7 I&O Intake and Output 12/01/20 06:52 Intake Total 240 ml Output Total 1050 ml Balance -810 ml Intake Oral 240 ml Output Urine Total 1050 ml # Voids 2 General: Cooperative Lungs: Other (mildly SOA on exam) Abdomen: Soft Labs Laboratory Tests Test 12/01/20 01:51 12/01/20 03:00 O2 Saturation 97 % (92-99) Arterial Blood pH 7.42 (7.35-7.45) Arterial Blood pCO2 at Patient Temp 39 mmHg (35-46) Arterial Blood pO2 at Patient Temp 84 mmHg (65-108) Arterial Blood HCO3 24 mmol/L (21-28) Arterial Blood Base Excess 0 mmol/L (-3-3) FiO2 100 Sodium Level 136 mmol/L (136-145) Potassium Level 3.9 mmol/L (3.5-5.1) Chloride Level 105 mmol/L (98-107) Carbon Dioxide Level 22 mmol/L (21-32) Anion Gap 9 (6-14) Blood Urea Nitrogen 24 mg/dL (8-26) Creatinine 1.0 mg/dL (0.7-1.3) Estimated GFR (Cockcroft-Gault) 75.5 BUN/Creatinine Ratio 24 (6-20) Glucose Level 122 mg/dL (70-99) Calcium Level 8.2 mg/dL (8.5-10.1) Phosphorus Level 2.6 mg/dL (2.6-4.7) Magnesium Level 2.4 mg/dL (1.8-2.4) Total Bilirubin 0.5 mg/dL (0.2-1.0) Aspartate Amino Transf (AST/SGOT) 35 U/L (15-37) Alanine Aminotransferase (ALT/SGPT) 21 U/L (16-63) Alkaline Phosphatase 62 U/L (46-116) Total Protein 6.8 g/dL (6.4-8.2) Albumin 2.5 g/dL (3.4-5.0) Albumin/Globulin Ratio 0.6 (1.0-1.7) Laboratory Tests Test 12/01/20 01:51 12/01/20 03:00 O2 Saturation 97 % (92-99) Arterial Blood pH 7.42 (7.35-7.45) Arterial Blood pCO2 at Patient Temp 39 mmHg (35-46) Arterial Blood pO2 at Patient Temp 84 mmHg (65-108) Arterial Blood HCO3 24 mmol/L (21-28) Arterial Blood Base Excess 0 mmol/L (-3-3) FiO2 100 Sodium Level 136 mmol/L (136-145) Potassium Level 3.9 mmol/L (3.5-5.1) Chloride Level 105 mmol/L (98-107) Carbon Dioxide Level 22 mmol/L (21-32) Anion Gap 9 (6-14) Blood Urea Nitrogen 24 mg/dL (8-26) Creatinine 1.0 mg/dL (0.7-1.3) Estimated GFR (Cockcroft-Gault) 75.5 BUN/Creatinine Ratio 24 (6-20) Glucose Level 122 mg/dL (70-99) Calcium Level 8.2 mg/dL (8.5-10.1) Phosphorus Level 2.6 mg/dL (2.6-4.7) Magnesium Level 2.4 mg/dL (1.8-2.4) Total Bilirubin 0.5 mg/dL (0.2-1.0) Aspartate Amino Transf (AST/SGOT) 35 U/L (15-37) Alanine Aminotransferase (ALT/SGPT) 21 U/L (16-63) Alkaline Phosphatase 62 U/L (46-116) Total Protein 6.8 g/dL (6.4-8.2) Albumin 2.5 g/dL (3.4-5.0) Albumin/Globulin Ratio 0.6 (1.0-1.7) Problem List Problems Medical Problems: (1) Head injury Status: Acute (2) Left rib fracture Status: Acute (3) Multiple abrasions Status: Acute (4) Pneumothorax, left Status: Acute Assessment/Plan now on 2 l o2 improved after RR this AM xr reviewed pulm follow up would rec starting anticoagulant now that epidural out--will defer to IPC, pulmonary currently no general surgery needs Justicifation of Admission Dx: Justifications for Admission: Justification of Admission Dx: Yes Respiratory Failure: Severe Resp Distress Sepsis: Hypoxemia RUTH ANN JOHN BOILER ATTENDANT December 01, 2020 09:41
[2020-12-01 11:00] VITALS: BP 168/82
--- NOTE | 2020-12-01 11:56 | PDOC ---
PULMONARY PROGRESS NOTES DATE: 12/01/20 TIME: 11:55 Subjective Patient had rapid response overnight for increased SOB S/P chest tube DC on 11/27 remains on NC Vitals Vital Signs Date Time Temp Pulse Resp B/P (MAP) Pulse Ox O2 Delivery O2 Flow Rate FiO2 12/01/20 11:36 93 Room Air 2.0 12/01/20 11:00 97.7 83 24 168/82 (110) 97.7 ROS: No Nausea, No Abdominal Pain, No Increase Cough General: Alert, Oriented X4 Lungs: Clear, Other (decreased LLL) Cardiovascular: S1, S2 Abdomen: Soft Neuro Exam: Alert, Oriented Extremities: No Edema Skin: Warm, Dry Labs Laboratory Tests Test 12/01/20 01:51 12/01/20 03:00 O2 Saturation 97 % (92-99) Arterial Blood pH 7.42 (7.35-7.45) Arterial Blood pCO2 at Patient Temp 39 mmHg (35-46) Arterial Blood pO2 at Patient Temp 84 mmHg (65-108) Arterial Blood HCO3 24 mmol/L (21-28) Arterial Blood Base Excess 0 mmol/L (-3-3) FiO2 100 Sodium Level 136 mmol/L (136-145) Potassium Level 3.9 mmol/L (3.5-5.1) Chloride Level 105 mmol/L (98-107) Carbon Dioxide Level 22 mmol/L (21-32) Anion Gap 9 (6-14) Blood Urea Nitrogen 24 mg/dL (8-26) Creatinine 1.0 mg/dL (0.7-1.3) Estimated GFR (Cockcroft-Gault) 75.5 BUN/Creatinine Ratio 24 (6-20) Glucose Level 122 mg/dL (70-99) Calcium Level 8.2 mg/dL (8.5-10.1) Phosphorus Level 2.6 mg/dL (2.6-4.7) Magnesium Level 2.4 mg/dL (1.8-2.4) Total Bilirubin 0.5 mg/dL (0.2-1.0) Aspartate Amino Transf (AST/SGOT) 35 U/L (15-37) Alanine Aminotransferase (ALT/SGPT) 21 U/L (16-63) Alkaline Phosphatase 62 U/L (46-116) Total Protein 6.8 g/dL (6.4-8.2) Albumin 2.5 g/dL (3.4-5.0) Albumin/Globulin Ratio 0.6 (1.0-1.7) Laboratory Tests Test 12/01/20 01:51 12/01/20 03:00 O2 Saturation 97 % (92-99) Arterial Blood pH 7.42 (7.35-7.45) Arterial Blood pCO2 at Patient Temp 39 mmHg (35-46) Arterial Blood pO2 at Patient Temp 84 mmHg (65-108) Arterial Blood HCO3 24 mmol/L (21-28) Arterial Blood Base Excess 0 mmol/L (-3-3) FiO2 100 Sodium Level 136 mmol/L (136-145) Potassium Level 3.9 mmol/L (3.5-5.1) Chloride Level 105 mmol/L (98-107) Carbon Dioxide Level 22 mmol/L (21-32) Anion Gap 9 (6-14) Blood Urea Nitrogen 24 mg/dL (8-26) Creatinine 1.0 mg/dL (0.7-1.3) Estimated GFR (Cockcroft-Gault) 75.5 BUN/Creatinine Ratio 24 (6-20) Glucose Level 122 mg/dL (70-99) Calcium Level 8.2 mg/dL (8.5-10.1) Phosphorus Level 2.6 mg/dL (2.6-4.7) Magnesium Level 2.4 mg/dL (1.8-2.4) Total Bilirubin 0.5 mg/dL (0.2-1.0) Aspartate Amino Transf (AST/SGOT) 35 U/L (15-37) Alanine Aminotransferase (ALT/SGPT) 21 U/L (16-63) Alkaline Phosphatase 62 U/L (46-116) Total Protein 6.8 g/dL (6.4-8.2) Albumin 2.5 g/dL (3.4-5.0) Albumin/Globulin Ratio 0.6 (1.0-1.7) Medications Active Scripts Medications Dose Route/Sig Max Daily Dose Days Date Category Magnesium (Magnesium Oxide) 400 Mg Capsule 1 Cap PO DAILY 30 11/23/20 Reported Losartan Potassium 50 Mg Tablet 50 Mg PO DAILY 11/23/20 Reported Bystolic (Nebivolol) 2.5 Mg Tablet 2.5 Mg PO DAILY 11/23/20 Reported Dovonex (Calcipotriene) 60 Gm Cream..g. 1 Gm TP TID 30 05/15/17 Rx [Triamcinolone 0.1%CR] 1 Applic TP BID 05/13/17 Reported Tylenol (Acetaminophen) 325 Mg Tablet 650 Mg PO BID PRN 05/13/17 Reported Fluticasone Propionate Nasal Levels (Fluticasone Propionate) 16 Gm Levels.susp 1 Levels NS HS 05/13/17 Reported [Diltiazem CD] 1 Cap PO DAILY 05/13/17 Reported Aspirin Ec (Aspirin) 325 Mg Tablet.dr 1 Tab PO DAILY 05/13/17 Reported Comments CXR IMPRESSION: 1. Left thoracostomy tube overlying the left upper thorax. No convincing pneumothorax is seen. There is stable left lower lobe predominant infiltrate or atelectasis and right basilar atelectasis. 2. Multiple displaced left rib fractures. CTA chest IMPRESSION: 1. Bilateral lower lobe pulmonary emboli. This is not well assessed given utilization of a dissection protocol for this exam. 2. Multiple segmental displaced left rib fractures, described in detail above. Fractures are seen involving the second through ninth left ribs. There is an associated left chest wall soft tissue contusion and soft tissue gas, left lung contusion and a small left pleural effusion which may be due to a hemothorax. The recently demonstrated pneumothorax is no longer seen. 3. No evidence of aortic dissection or aneurysm. There is ectasia of the infrarenal abdominal aorta to a caliber of 2.8 cm. 4. Multilevel degenerative change involving the thoracic and lumbar spine, resulting in significant foraminal and central canal stenosis at the aforementioned levels. 5. No convincing acute thoracic or lumbar spine trauma. However, there are foci of gas within the suspected epidural space at multiple thoracic levels. This may be within epidural veins and related to surrounding soft tissue emphysema. 6. 5.0 cm fluid collection within a small fat-containing umbilical hernia. Impression . IMPRESSION: 1. Status post fall. 2. Abnormal chest x-ray. 3. Left pneumothorax.resolved --DC Chest tube on 11/27 4. Rib fractures.(TOTAL 6) 5. Obstructive sleep apnea-hypopnea syndrome. 6. History of coronary artery disease. 7. Hypertension.--uncontrolled 8. Bilateral PE / Small, mostly LLL 12/01 chest X IMPRESSION: 1. Left basilar consolidation, atelectasis versus pneumonia. There is a suspected moderate sized left pleural effusion. 2. Mild patchy opacity at the right lung base, likely atelectasis. Plan . Updated 12/01/20 Continue supplemental oxygen on [address] chest results Start ABX, Rocpehin and azithromycin cxr reviewed Pt. now on po pain medication Bilateral PE -- heparin gtt 24 hours and plan to transition to Eliquis po BLE U/S neg for DVT no need for IVC filter NEBS IS at bedside Fall precautions Follow cardiology recs We would require repeat sleep study as an outpatient. PT/OT DVT/GI PPX d/w in detail with Dr Breana Rao/Mario RN Updated 430 Epidural removed approximately 11 AM We will initiate anticoagulation when okay with anesthesia Remains on room air Respiratory status PLAN AND RECOMMENDATIONS: Remains on room air cxr reviewed, no ptx --CT removed 11/27 CTA chest showed small Bilateral PE , mostly LLL. however AC is contraindicated in setting of Epidural, PE is clinically less significant and risk of AC outweighs enefits. plan to DC epidural cath and transition to PO pain medications Start heparin gtt 24 hours after DC of epidural cath, and plan to transition to Eliquis po BLE U/S neg for DVT no need for IVC filter NEBS IS at bedside Fall precautions Follow cardiology recs We would require repeat sleep study as an outpatient. PT/OT DVT/GI PPX d/w in detail with Dr Breana Rao/Mario RN JD HAMILTON MD December 01, 2020 11:56
[2020-12-01] MEDS ORDERED: oxyCODONE/APAP 5/325 1 TAB TABLET PO PRN (12:00)
[2020-12-01] MEDS: IV NORMAL SALINE 1000ML BAG 1,000 ML IV SCH (12:24)
[2020-12-01] MEDS: oxyCODONE/APAP 5/325 1 TAB TABLET PO PRN ×3 (14:03→23:03)
[2020-12-01 15:00] VITALS: BP 173/68
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
[2020-12-01] MEDS ORDERED: MAGNESIUM CITRATE 296 ML SOLUTION. PO PRN (15:15)
[2020-12-01] MEDS ORDERED: HEPARIN for IV BOLUS 10,000 UNIT/10 ML VIAL. IV ONE (16:30)
[2020-12-01] MEDS ORDERED: HEPARIN for IV BOLUS 10,000 UNIT/10 ML VIAL. IV PRN (16:30)
[2020-12-01] MEDS: HEPARIN 25,000UTS/250ML PREMIX 250 ML IV PRN (17:47)
[2020-12-01] MEDS: PSYLLIUM HUSK (SUGAR FREE) 1 PKT PACKET PO SCH (18:00)
[2020-12-01] MEDS: AZITHROMYCIN 500 MG in IV NORMAL SALINE 250ML 250 ML IV SCH (18:47)
[2020-12-01 19:00] VITALS: BP 169/63
[2020-12-01] MEDS: CYCLOBENZAPRINE 10 MG TABLET. PO PRN (20:17)
[2020-12-01] MEDS: ATORVASTATIN CALCIUM 40 MG TABLET. PO SCH (20:17)
[2020-12-01] MEDS: ALBUTEROL SULFATE 2.5 MG/3 ML NEBU. NEB PRN (20:32)
--- NOTE | 2020-12-01 22:38 | RAD ---
Exam: CT of chest without contrast INDICATION: Respiratory failure TECHNIQUE: Sequential axial images through the chest obtained without IV contrast. Sagittal and coron al reformatted images were reconstructed from the axial data and reviewed. Exposure: One or more of the following in the visualized dose reduction techniques were utilized for this examination: 1. Automated exposure control 2. Adjustment of the MA and/or KV according to patient size 3. Use of iterative of reconstructive technique Comparisons: 11/27/2020 FINDINGS: Visualized portions of the thyroid are unremarkable. No enlarged mediastinal lymph nodes. Heart size is normal. No pericardial effusion. Mild coronary artery calcifications. Thoracic aorta oconnell s a normal course and caliber. Pulmonary artery is not enlarged. Airways are patent. There is a loculated moderate to large left-sided pleural effusion with adjacent atelectasis. Remaining lungs are clear. Visualized upper abdomen is unremarkable. There are numerous left-sided rib fractures again noted. Small amount of soft tissue gas noted within the left lateral chest wall. IMPRESSION: 1. Moderate to large loculated and likely hemorrhagic left-sided pleural effusion causing extensive atelectasis of the left lung. 2. Redemonstration of numerous left-sided rib fractures Electronically signed by: Elizabeth Olivares MD (12/01/2020 10:36 PM) [facility] [place]
[2020-12-01 23:00] VITALS: BP 147/84
--- NOTE | 2020-12-01 23:22 | NUR ---
Dr. Espinoza notified of CT results. Per MD monitor hemoglobin levels and continue Heparin gtt at this time. Stat H&H lab ordered.
[2020-12-01 23:47] LABS: HEMATOCRIT 38.6 % (39.0-53.0); HEMOGLOBIN 12.5 g/dL (13.0-17.5)
[2020-12-02] VITALS (14 sets, daily range): BP systolic 101–163; BP diastolic 60–89
[2020-12-02] MEDS: HEPARIN for IV BOLUS 10,000 UNIT/10 ML VIAL. IV PRN (00:11)
[2020-12-02] MEDS: ACETAMINOPHEN 500 MG TABLET PO SCH (00:14)
[2020-12-02] MEDS: fentaNYL PF VIAL 100 MCG/2 ML VIAL IVP PRN ×5 (00:15→22:15)
[2020-12-02] MEDS: ALBUTEROL SULFATE 2.5 MG/3 ML NEBU. NEB PRN (01:37)
[2020-12-02] MEDS: LORazepam 0.5 MG TABLET PO PRN ×2 (03:07→22:14)
[2020-12-02] MEDS: CYCLOBENZAPRINE 10 MG TABLET. PO PRN ×3 (03:07→20:15)
[2020-12-02] MEDS: oxyCODONE/APAP 5/325 1 TAB TABLET PO PRN ×4 (03:09→20:09)
[2020-12-02] MEDS: cefTRIAXone IV Push 1 GM VIAL. IVP SCH (03:10)
[2020-12-02] MEDS: IPRATRPIUM/ALBUTEROL 0.5/2.5MG 3 ML NEBU. NEB SCH ×4 (07:44→20:18)
[2020-12-02] MEDS: HEPARIN 25,000UTS/250ML PREMIX 250 ML IV PRN ×2 (08:37→17:14)
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
[2020-12-02] MEDS: guaiFENesin ORAL 200 MG/10 ML LIQUID. PO PRN (09:17)
[2020-12-02] MEDS: POTASSIUM CHLORIDE 20 MEQ TABLET.ER. PO SCH (09:19)
[2020-12-02] MEDS: ASPIRIN ENTERIC COATED 81 MG TABLET.DR. PO SCH (09:20)
[2020-12-02] MEDS: DOCUSATE SODIUM 100 MG CAPSULE. PO PRN (09:20)
--- NOTE | 2020-12-02 09:20 | NUR ---
Spoke with Mikayla Nursing [employer] and DR Toussaint, unable to collect enough blood for [facility] Lab for Heparin drip. Both aware of patient situation.
[2020-12-02] MEDS: METOPROLOL TART IMMED RELEASE 25 MG TABLET. PO SCH ×2 (09:22→20:10)
[2020-12-02] MEDS: LOSARTAN POTASSIUM 50 MG TABLET. PO SCH (09:22)
[2020-12-02] MEDS: hydroCHLOROthiazide 12.5 MG CAPSULE PO SCH (09:22)
[2020-12-02] MEDS: amLODIPine BESYLATE 10 MG TABLET PO SCH (09:23)
--- NOTE | 2020-12-02 10:18 | PDOC ---
SURGICAL PROGRESS NOTE DATE: 12/02/20 TIME: 10:17 Subjective about the same as yesterday up in chair back pain, some SOA Vital Signs Vital Signs Date Time Temp Pulse Resp B/P (MAP) Pulse Ox O2 Delivery O2 Flow Rate FiO2 12/02/20 09:23 102 163/89 12/02/20 09:20 94 Nasal Cannula 4.0 12/02/20 07:00 98.4 22 98.4 I&O Intake and Output 12/02/20 07:00 Intake Total 550 ml Output Total 1500 ml Balance -950 ml Intake Oral 300 ml IV Total 250 ml Output Urine Total 1500 ml # Voids 2 # Bowel Movements 1 General: Alert, Cooperative Lungs: Other (NC in place) Abdomen: Soft Labs Laboratory Tests Test 12/01/20 01:51 12/01/20 03:00 12/01/20 23:35 O2 Saturation 97 % (92-99) Arterial Blood pH 7.42 (7.35-7.45) Arterial Blood pCO2 at Patient Temp 39 mmHg (35-46) Arterial Blood pO2 at Patient Temp 84 mmHg (65-108) Arterial Blood HCO3 24 mmol/L (21-28) Arterial Blood Base Excess 0 mmol/L (-3-3) FiO2 100 Sodium Level 136 mmol/L (136-145) Potassium Level 3.9 mmol/L (3.5-5.1) Chloride Level 105 mmol/L (98-107) Carbon Dioxide Level 22 mmol/L (21-32) Anion Gap 9 (6-14) Blood Urea Nitrogen 24 mg/dL (8-26) Creatinine 1.0 mg/dL (0.7-1.3) Estimated GFR (Cockcroft-Gault) 75.5 BUN/Creatinine Ratio 24 (6-20) Glucose Level 122 mg/dL (70-99) Calcium Level 8.2 mg/dL (8.5-10.1) Phosphorus Level 2.6 mg/dL (2.6-4.7) Magnesium Level 2.4 mg/dL (1.8-2.4) Total Bilirubin 0.5 mg/dL (0.2-1.0) Aspartate Amino Transf (AST/SGOT) 35 U/L (15-37) Alanine Aminotransferase (ALT/SGPT) 21 U/L (16-63) Alkaline Phosphatase 62 U/L (46-116) Total Protein 6.8 g/dL (6.4-8.2) Albumin 2.5 g/dL (3.4-5.0) Albumin/Globulin Ratio 0.6 (1.0-1.7) Hemoglobin 12.5 g/dL (13.0-17.5) Hematocrit 38.6 % (39.0-53.0) Heparin Anti-Xa Act, Unfractionated < 0.10 IU/mL (0.30-0.70) Laboratory Tests Test 12/01/20 23:35 Hemoglobin 12.5 g/dL (13.0-17.5) Hematocrit 38.6 % (39.0-53.0) Heparin Anti-Xa Act, Unfractionated < 0.10 IU/mL (0.30-0.70) Problem List Problems Medical Problems: (1) Head injury Status: Acute (2) Left rib fracture Status: Acute (3) Multiple abrasions Status: Acute (4) Pneumothorax, left Status: Acute Assessment/Plan Pulm following on heparin Justicifation of Admission Dx: Justifications for Admission: Justification of Admission Dx: Yes Respiratory Failure: Severe Resp Distress Sepsis: Hypoxemia RUTH ANN [employer] December 02, 2020 10:17
[2020-12-02] MEDS: KETOROLAC 15 MG/ML VIAL. IVP PRN ×2 (11:13→17:06)
[2020-12-02] MEDS ORDERED: LIDOCAINE WITH 8.4% SOD BICARB 3 ML DISP.SYRIN. ONE (11:50)
[2020-12-02] MEDS ORDERED: MIDAZOLAM HCL/PF 2 MG/2 ML VIAL. ONE (12:19)
[2020-12-02] MEDS ORDERED: fentaNYL PF VIAL 100 MCG/2 ML VIAL ONE (12:19)
[2020-12-02] MEDS ORDERED: MIDAZOLAM HCL/PF 2 MG/2 ML VIAL. IV ONE (12:30)
[2020-12-02] MEDS ORDERED: fentaNYL PF VIAL 100 MCG/2 ML VIAL IV ONE (12:30)
[2020-12-02] MEDS ORDERED: LIDOCAINE WITH 8.4% SOD BICARB 3 ML DISP.SYRIN. IJ ONE (12:30)
--- NOTE | 2020-12-02 13:15 | NUR ---
Received report from IR CHest tube placed in left upper back, Picc line on the right Upper arm double lumen PICC. BP reported at 136/73 R20 HR93. 50mcg fentanl given 0.5 of versed given. Frequent vitals. Patient left on 4 LNC, received 6LNC during procedure, and sating at 94% on 4LNC. 100ml sent off, 800 in chest tube noted when patient arrived on unit.
--- NOTE | 2020-12-02 13:34 | PDOC ---
PULMONARY PROGRESS NOTES DATE: 12/02/20 TIME: 13:30 Subjective pt. now on 4 liters, increased SOB S/P chest tube DC on 11/27, planned for new Chest tube 12/02 Vitals Vital Signs Date Time Temp Pulse Resp B/P (MAP) Pulse Ox O2 Delivery O2 Flow Rate FiO2 12/02/20 13:26 95 20 95 Nasal Cannula 4.0 12/02/20 11:00 97.7 132/72 (92) 97.7 ROS: No Nausea, No Abdominal Pain, No Increase Cough General: Alert, Oriented X4 Lungs: Clear, Other (decreased LLL) Cardiovascular: S1, S2 Abdomen: Soft Neuro Exam: Alert, Oriented Extremities: No Edema Skin: Warm, Dry Labs Laboratory Tests Test 12/01/20 01:51 12/01/20 03:00 12/01/20 23:35 O2 Saturation 97 % (92-99) Arterial Blood pH 7.42 (7.35-7.45) Arterial Blood pCO2 at Patient Temp 39 mmHg (35-46) Arterial Blood pO2 at Patient Temp 84 mmHg (65-108) Arterial Blood HCO3 24 mmol/L (21-28) Arterial Blood Base Excess 0 mmol/L (-3-3) FiO2 100 Sodium Level 136 mmol/L (136-145) Potassium Level 3.9 mmol/L (3.5-5.1) Chloride Level 105 mmol/L (98-107) Carbon Dioxide Level 22 mmol/L (21-32) Anion Gap 9 (6-14) Blood Urea Nitrogen 24 mg/dL (8-26) Creatinine 1.0 mg/dL (0.7-1.3) Estimated GFR (Cockcroft-Gault) 75.5 BUN/Creatinine Ratio 24 (6-20) Glucose Level 122 mg/dL (70-99) Calcium Level 8.2 mg/dL (8.5-10.1) Phosphorus Level 2.6 mg/dL (2.6-4.7) Magnesium Level 2.4 mg/dL (1.8-2.4) Total Bilirubin 0.5 mg/dL (0.2-1.0) Aspartate Amino Transf (AST/SGOT) 35 U/L (15-37) Alanine Aminotransferase (ALT/SGPT) 21 U/L (16-63) Alkaline Phosphatase 62 U/L (46-116) Total Protein 6.8 g/dL (6.4-8.2) Albumin 2.5 g/dL (3.4-5.0) Albumin/Globulin Ratio 0.6 (1.0-1.7) Hemoglobin 12.5 g/dL (13.0-17.5) Hematocrit 38.6 % (39.0-53.0) Heparin Anti-Xa Act, Unfractionated < 0.10 IU/mL (0.30-0.70) Laboratory Tests Test 12/01/20 23:35 Hemoglobin 12.5 g/dL (13.0-17.5) Hematocrit 38.6 % (39.0-53.0) Heparin Anti-Xa Act, Unfractionated < 0.10 IU/mL (0.30-0.70) Medications Active Scripts Medications Dose Route/Sig Max Daily Dose Days Date Category Magnesium (Magnesium Oxide) 400 Mg Capsule 1 Cap PO DAILY 30 11/23/20 Reported Losartan Potassium 50 Mg Tablet 50 Mg PO DAILY 11/23/20 Reported Bystolic (Nebivolol) 2.5 Mg Tablet 2.5 Mg PO DAILY 11/23/20 Reported Dovonex (Calcipotriene) 60 Gm Cream..g. 1 Gm TP TID 30 05/15/17 Rx [Triamcinolone 0.1%CR] 1 Applic TP BID 05/13/17 Reported Tylenol (Acetaminophen) 325 Mg Tablet 650 Mg PO BID PRN 05/13/17 Reported Fluticasone Propionate Nasal [place] (Fluticasone Propionate) 16 Gm [place].susp 1 [place] NS HS 05/13/17 Reported [Diltiazem CD] 1 Cap PO DAILY 05/13/17 Reported Aspirin Ec (Aspirin) 325 Mg Tablet.dr 1 Tab PO DAILY 05/13/[address] chest IMPRESSION: 1. Moderate to large loculated and likely hemorrhagic left-sided pleural effusion causing extensive atelectasis of the left lung. 2. Redemonstration of numerous left-sided rib fractures CXR IMPRESSION: 1. Left thoracostomy tube overlying the left upper thorax. No convincing pneumothorax is seen. There is stable left lower lobe predominant infiltrate or atelectasis and right basilar atelectasis. 2. Multiple displaced left rib fractures. CTA chest IMPRESSION: 1. Bilateral lower lobe pulmonary emboli. This is not well assessed given utilization of a dissection protocol for this exam. 2. Multiple segmental displaced left rib fractures, described in detail above. Fractures are seen involving the second through ninth left ribs. There is an associated left chest wall soft tissue contusion and soft tissue gas, left lung contusion and a small left pleural effusion which may be due to a hemothorax. The recently demonstrated pneumothorax is no longer seen. 3. No evidence of aortic dissection or aneurysm. There is ectasia of the infrar enal abdominal aorta to a caliber of 2.8 cm. 4. Multilevel degenerative change involving the thoracic and lumbar spine, resulting in significant foraminal and central canal stenosis at the aforementioned levels. 5. No convincing acute thoracic or lumbar spine trauma. However, there are foci of gas within the suspected epidural space at multiple thoracic levels. This may be within epidural veins and related to surrounding soft tissue emphysema. 6. 5.0 cm fluid collection within a small fat-containing umbilical hernia. Impression . IMPRESSION: 1. Status post fall. 2. Abnormal chest x-ray. 3. Left pneumothorax.resolved --DC Chest tube on 11/27 4. Rib fractures.(TOTAL 6) 5. Obstructive sleep apnea-hypopnea syndrome. 6. History of coronary artery disease. 7. Hypertension.--uncontrolled 8. Bilateral PE / Small, mostly LLL 9. Possible left hemithorax 12/01 chest X IMPRESSION: 1. Left basilar consolidation, atelectasis versus pneumonia. There is a suspected moderate sized left pleural effusion. 2. Mild patchy opacity at the right lung base, likely atelectasis. Plan . Updated 12/02/20 Continue supplemental oxygen on 4 liters NC, to keep sats above 92% CT chest reviewed-- IR consult for left chest tube placement Daily CXR Continue Rocpehin and azithromycin Pt. now on po pain medication Bilateral PE -- heparin gtt 24-- on hold BLE U/S neg for DVT no need for IVC filter NEBS IS at bedside Fall precautions Follow cardiology recs We would require repeat sleep study as an outpatient. PT/OT DVT/GI PPX D/W RN Updated 12/01/20 Continue supplemental oxygen on [address] chest results Start ABX, Rocpehin and azithromycin cxr reviewed Pt. now on po pain medication Bilateral PE -- heparin gtt 24 hours and plan to transition to Eliquis po BLE U/S neg for DVT no need for IVC filter NEBS IS at bedside Fall precautions Follow cardiology recs We would require repeat sleep study as an outpatient. PT/OT DVT/GI PPX d/w in detail with Dr Breana Rao/Mario RN Updated 430 Epidural removed approximately 11 AM We will initiate anticoagulation when okay with anesthesia Remains on room air Respiratory status PLAN AND RECOMMENDATIONS: Remains on room air cxr reviewed, no ptx --CT removed 11/27 CTA chest showed small Bilateral PE , mostly LLL. however AC is contraindicated in setting of Epidural, PE is clinically less significant and risk of AC outweighs enefits. plan to DC epidural cath and transition to PO pain medications Start heparin gtt 24 hours after DC of epidural cath, and plan to transition to Eliquis po BLE U/S neg for DVT no need for IVC filter NEBS IS at bedside Fall precautions Follow cardiology recs We would require repeat sleep study as an outpatient. PT/OT DVT/GI PPX d/w in detail with Dr Breana Rao/JD VOGEL RN, MD December 02, 2020 13:34
[2020-12-02] MEDS: PSYLLIUM HUSK (SUGAR FREE) 1 PKT PACKET PO SCH (18:00)
[2020-12-02 18:43] LABS: BF CLARITY CLOUDY; BF COLOR YELLOW; BF MON % 17 %; BF PMN % 83 %; BF RBC COUNT 5569 /cmm (Not Established); BF SOURCE PLEURAL; BF WBC COUNT 1067 /cmm (Not Established)
[2020-12-02] MEDS: AZITHROMYCIN 500 MG in IV NORMAL SALINE 250ML 250 ML IV SCH (19:01)
[2020-12-02] MEDS: LACTOBACILLUS RHAMNOSUS GG 1 CAPSULE. PO SCH (20:09)
[2020-12-02] MEDS: ATORVASTATIN CALCIUM 40 MG TABLET. PO SCH (20:09)
[2020-12-03] MEDS: ALBUTEROL SULFATE 2.5 MG/3 ML NEBU. NEB PRN (02:35)
[2020-12-03] MEDS: cefTRIAXone IV Push 1 GM VIAL. IVP SCH (02:39)
[2020-12-03] MEDS: CYCLOBENZAPRINE 10 MG TABLET. PO PRN ×3 (02:46→17:32)
[2020-12-03] MEDS: fentaNYL PF VIAL 100 MCG/2 ML VIAL IVP PRN ×2 (02:47→11:28)
[2020-12-03 03:21] VITALS: BP 127/76
[2020-12-03] MEDS: oxyCODONE/APAP 5/325 1 TAB TABLET PO PRN ×5 (04:58→23:04)
[2020-12-03] MEDS: HEPARIN 25,000UTS/250ML PREMIX 250 ML IV PRN ×2 (06:04→17:40)
[2020-12-03 07:00] VITALS: BP 132/78
[2020-12-03] MEDS: HEPARIN for IV BOLUS 10,000 UNIT/10 ML VIAL. IV PRN ×2 (07:12)
[2020-12-03] MEDS: ASPIRIN ENTERIC COATED 81 MG TABLET.DR. PO SCH (08:02)
[2020-12-03] MEDS: LACTOBACILLUS RHAMNOSUS GG 1 CAPSULE. PO SCH ×2 (08:02→20:51)
[2020-12-03] MEDS: guaiFENesin ORAL 200 MG/10 ML LIQUID. PO PRN (08:02)
[2020-12-03] MEDS: KETOROLAC 15 MG/ML VIAL. IVP PRN ×3 (08:03→20:14)
[2020-12-03] MEDS: LOSARTAN POTASSIUM 50 MG TABLET. PO SCH (08:04)
[2020-12-03] MEDS: hydroCHLOROthiazide 12.5 MG CAPSULE PO SCH (08:04)
[2020-12-03] MEDS: METOPROLOL TART IMMED RELEASE 25 MG TABLET. PO SCH ×2 (08:04→20:52)
[2020-12-03] MEDS: POTASSIUM CHLORIDE 20 MEQ TABLET.ER. PO SCH (08:05)
[2020-12-03] MEDS: POLYETHYLENE GLYCOL 3350 17 GM PACKET. PO PRN (08:08)
[2020-12-03] MEDS: amLODIPine BESYLATE 10 MG TABLET PO SCH (08:15)
[2020-12-03] MEDS: IPRATRPIUM/ALBUTEROL 0.5/2.5MG 3 ML NEBU. NEB SCH ×4 (08:21→20:41)
--- NOTE | 2020-12-03 10:43 | PDOC ---
PULMONARY PROGRESS NOTES DATE: 12/03/20 TIME: 10:36 Subjective pt. now on 4 liters, increased SOB 12/02 S/P chest tube DC on 11/27, new Chest tube 12/02 for loculated left effusion, suspected hemothorax Vitals Vital Signs Date Time Temp Pulse Resp B/P (MAP) Pulse Ox O2 Delivery O2 Flow Rate FiO2 12/03/20 09:50 Nasal Cannula 4.0 12/03/20 08:23 97 12/03/20 08:15 89 132/78 12/03/20 07:00 97.5 20 97.5 ROS: No Nausea, No Abdominal Pain, No Increase Cough General: Alert, Oriented X4 Lungs: Clear, Other (decreased LLL) Cardiovascular: S1, S2 Abdomen: Soft Neuro Exam: Alert, Oriented Extremities: No Edema Skin: Warm, Dry Labs Laboratory Tests Test 12/01/20 23:35 12/02/20 13:13 12/02/20 23:20 12/03/20 06:00 Hemoglobin 12.5 g/dL (13.0-17.5) Hematocrit 38.6 % (39.0-53.0) Heparin Anti-Xa Act, Unfractionated < 0.10 IU/mL (0.30-0.70) < 0.10 IU/mL (0.30-0.70) 0.11 IU/mL (0.30-0.70) Body Fluid Source Pleural Body Fluid Color Yellow Body Fluid Clarity Cloudy Body Fluid pH 7.50 Body Fluid Nucleated Cells 1067 /cmm (Not Established) Body Fluid Mononuclear WBCs (%) 17 % Body Fluid Polymorphonuclear Cells 83 % Body Fluid Total RBCs Counted 5569 /cmm (Not Established) Laboratory Tests Test 12/02/20 13:13 12/02/20 23:20 12/03/20 06:00 Body Fluid Source Pleural Body Fluid Color Yellow Body Fluid Clarity Cloudy Body Fluid pH 7.50 Body Fluid Nucleated Cells 1067 /cmm (Not Established) Body Fluid Mononuclear WBCs (%) 17 % Body Fluid Polymorphonuclear Cells 83 % Body Fluid Total RBCs Counted 5569 /cmm (Not Established) Heparin Anti-Xa Act, Unfractionated < 0.10 IU/mL (0.30-0.70) 0.11 IU/mL (0.30-0.70) Medications Active Scripts Medications Dose Route/Sig Max Daily Dose Days Date Category Magnesium (Magnesium Oxide) 400 Mg Capsule 1 Cap PO DAILY 30 11/23/20 Reported Losartan Potassium 50 Mg Tablet 50 Mg PO DAILY 11/23/20 Reported Bystolic (Nebivolol) 2.5 Mg Tablet 2.5 Mg PO DAILY 11/23/20 Reported Dovonex (Calcipotriene) 60 Gm Cream..g. 1 Gm TP TID 30 05/15/17 Rx [Triamcinolone 0.1%CR] 1 Applic TP BID 05/13/17 Reported Tylenol (Acetaminophen) 325 Mg Tablet 650 Mg PO BID PRN 05/13/17 Reported Fluticasone Propionate Nasal [place] (Fluticasone Propionate) 16 Gm [place].susp 1 [place] NS HS 05/13/17 Reported [Diltiazem CD] 1 Cap PO DAILY 05/13/17 Reported Aspirin Ec (Aspirin) 325 Mg Tablet.dr 1 Tab PO DAILY 05/13/17 Reported Comments cxr 12/03 no change in left effusion CT chest IMPRESSION: 1. Moderate to large loculated and likely hemorrhagic left-sided pleural effusion causing extensive atelectasis of the left lung. 2. Redemonstration of numerous left-sided rib fractures CTA chest IMPRESSION: 1. Bilateral lower lobe pulmonary emboli. This is not well assessed given utilization of a dissection protocol for this exam. 2. Multiple segmental displaced left rib fractures, described in detail above. Fractures are seen involving the second through ninth left ribs. There is an associated left chest wall soft tissue contusion and soft tissue gas, left lung contusion and a small left pleural effusion which may be due to a hemothorax. The recently demonstrated pneumothorax is no longer seen. 3. No evidence of aortic dissection or aneurysm. There is ectasia of the infrarenal abdominal aorta to a caliber of 2.8 cm. 4. Multilevel degenerative change involving the thoracic and lumbar spine, resulting in significant foraminal and central canal stenosis at the aforementioned levels. 5. No convincing acute thoracic or lumbar spine trauma. However, there are foci of gas within the suspected epidural space at multiple thoracic levels. This may be within epidural veins and related to surrounding soft tissue emphysema. 6. 5.0 cm fluid collection within a small fat-containing umbilical hernia. Impression . IMPRESSION: 1. Status post fall with multiple left rib fractures./ PTX 2. Left pneumothorax.resolved --DC Chest tube on 11/27, epidural dc. Pt developed multi-loculated left effusion, likely hemothorax, New left chest tube 12/02 4. Bilateral PE / Small, mostly LLL, place on heparin after dc epidural 5. Obstructive sleep apnea-hypopnea syndrome. 6. History of coronary artery disease. 7. Hypertension.--uncontrolled 12/01 chest X IMPRESSION: 1. Left basilar consolidation, atelectasis versus pneumonia. There is a suspected moderate sized left pleural effusion. 2. Mild patchy opacity at the right lung base, likely atelectasis. Plan . Updated 12/03/20 Continue supplemental oxygen on 4 liters NC, to keep sats above 92% CT chest reviewed-- continue chest tube with suction. Will need repeat ct chest in am. If loculated effusion not improved, will need VAT for organized hemothorax. Daily CXR Continue Rocpehin and azithromycin Pt. now on po pain medication Bilateral PE -- heparin gtt BLE U/S neg for DVT no need for IVC filter NEBS IS at bedside Fall precautions Follow cardiology recs We would require repeat sleep study as an outpatient. PT/OT DVT/GI PPX D/W RN Updated 12/02/20 Continue supplemental oxygen on 4 liters NC, to keep sats above 92% CT chest reviewed-- IR consult for left chest tube placement Daily CXR Continue Rocpehin and azithromycin Pt. now on po pain medication Bilateral PE -- heparin gtt 24-- on hold BLE U/S neg for DVT no need for IVC filter NEBS IS at bedside Fall precautions Follow cardiology recs We would require repeat sleep study as an outpatient. PT/OT DVT/GI PPX D/W RN Updated 12/01/20 Continue supplemental oxygen on [address] [place] [address] chest results Start ABX, Rocpehin and azithromycin cxr reviewed Pt. now on po pain medication Bilateral PE -- heparin gtt 24 hours and plan to transition to Eliquis po BLE U/S neg for DVT no need for IVC filter NEBS IS at bedside Fall precautions Follow cardiology recs We would require repeat sleep study as an outpatient. PT/OT DVT/GI PPX d/w in detail with Dr Toussaint D/W RN Updated 430 Epidural removed approximately 11 AM We will initiate anticoagulation when okay with anesthesia Remains on room air Respiratory status PLAN AND RECOMMENDATIONS: Remains on room air cxr reviewed, no ptx --CT removed 11/27 CTA chest showed small Bilateral PE , mostly LLL. however AC is contraindicated in setting of Epidural, PE is clinically less significant and risk of AC outweighs enefits. plan to DC epidural cath and transition to PO pain medications Start heparin gtt 24 hours after DC of epidural cath, and plan to transition to Eliquis po BLE U/S neg for DVT no need for IVC filter NEBS IS at bedside Fall precautions Follow cardiology recs We would require repeat sleep study as an outpatient. PT/OT DVT/GI PPX d/w in detail with Dr Toussaint D/W RN LORI OSPINA MD December 03, 2020 10:43
[2020-12-03 11:00] VITALS: BP 149/72
--- NOTE | 2020-12-03 11:44 | RAD ---
Single view of the chest. 12/03/2020 7:48 AM Indication: Reason: chest tube placement / Spl. Instructions: / History: Comparison: Chest CT December 01, 2020 chest radiograph December 01, 2020 Findings: There is a pigtail left thoracostomy tube, barely visualized in the inferior left thorax. M ultiloculated pleural fluid collection persists somewhat decreased from prior study. There is a right upper extremity PICC line with tip the cavoatrial junction. Right lung is clear. Multiple displaced left-sided rib fractures again noted. IMPRESSION: 1. Right thoracostomy tube in place. 2. Multiloculated right pleural fluid collection persists. 3. Multiple left-sided rib fractures again noted Electronically signed by: William Hernández MD (12/03/2020 11:42 AM) [id number]
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
[2020-12-03] MEDS: guaiFENesin/CODEINE 100mg/10mg 5 ML LIQUID PO PRN ×2 (12:06→17:32)
--- NOTE | 2020-12-03 13:57 | PDOC ---
RUTH ANN JOHN HOOP [employer] OPERATOR 12/03/20 1357: SURGICAL PROGRESS NOTE DATE: 12/03/20 TIME: 13:56 Subjective up in chair talkative today still with pain Vital Signs Vital Signs Date Time Temp Pulse Resp B/P (MAP) Pulse Ox O2 Delivery O2 Flow Rate FiO2 12/03/20 12:44 97 Nasal Cannula 4.0 12/03/20 11:00 98.5 80 20 149/72 (97) 98.5 I&O Intake and Output 12/03/20 07:00 Intake Total 3761 ml Output Total 4150 ml Balance -389 ml Intake Oral 750 ml IV Total 250 ml Blood Product IV Normal Saline Flush 2761 ml Output Urine Total 1250 ml Chest Tube Drainage Total 2900 ml # Voids 1 # Bowel Movements 1 General: Alert, Cooperative Lungs: Other (ct in place) Labs Laboratory Tests Test 12/01/20 23:35 12/02/20 13:13 12/02/20 23:20 12/03/20 06:00 Hemoglobin 12.5 g/dL (13.0-17.5) Hematocrit 38.6 % (39.0-53.0) Heparin Anti-Xa Act, Unfractionated < 0.10 IU/mL (0.30-0.70) < 0.10 IU/mL (0.30-0.70) 0.11 IU/mL (0.30-0.70) Body Fluid Source Pleural Body Fluid Color Yellow Body Fluid Clarity Cloudy Body Fluid pH 7.50 Body Fluid Nucleated Cells 1067 /cmm (Not Established) Body Fluid Mononuclear WBCs (%) 17 % Body Fluid Polymorphonuclear Cells 83 % Body Fluid Total RBCs Counted 5569 /cmm (Not Established) Laboratory Tests Test 12/02/20 23:20 12/03/20 06:00 Heparin Anti-Xa Act, Unfractionated < 0.10 IU/mL (0.30-0.70) 0.11 IU/mL (0.30-0.70) Problem List Problems Medical Problems: (1) Head injury Status: Acute (2) Left rib fracture Status: Acute (3) Multiple abrasions Status: Acute (4) Pneumothorax, left Status: Acute Assessment/Plan supportive care available as needed Justicifation of Admission Dx: Justifications for Admission: Justification of Admission Dx: Yes Respiratory Failure: Severe Resp Distress Sepsis: Hypoxemia DAILY MILLER MD 12/03/201912: SURGICAL PROGRESS NOTE Assessment/Plan Pt seen and examined. Agree with Ms. John's note Pt feels better, nichole diet abd soft cont supportive care. RUTH ANN JOHN HOOP [employer] OPERATOR December 03, 2020 13:57 DAILY MILLER MD December 03, 2020 19:13
[2020-12-03 14:54] LABS: HEMATOCRIT 33.3 % (39.0-53.0); HEMOGLOBIN 10.7 g/dL (13.0-17.5)
[2020-12-03 15:00] VITALS: BP 114/73
--- NOTE | 2020-12-03 17:29 | RAD ---
Site ID: [id number] EXAMINATION: 1. Ultrasound and Fluoroscopic guided PICC line placement. (CPT 81181, 19287, 88360) 2. Ultrasound guided drain placement. (Chest tube with image guidance CPT 34539) 3. Moderate sedation (CPT fill) INDICATION: Poor IV access, patient needs IV antibiotics. Left loculated pleural effusion. CONSENT: Informed consent was obtained. The risks, benefits, potential complications and alternatives were reviewed and all questions answered. SEDATION: Under physician supervision, Versed and fentanyl were administered intravenously for moder ate sedation. Pulse oximetry, heart rate, and BP were continuously monitored by an independent train ed observer present. The physician spent 60 minutes of rozv-mx-fufw sedation time with the patient. FLUOROSCOPY UTILIZED: 21mGy. PROCEDURE: 1. Chest tube placement: After maximal sterile barrier preparation and draping, 1% lidocaine was utilized for local anesthesia . With the patient in left side up position, lateral intercostal approach was selected. A 19-gauge One step sheathed needle was introduced utilizing live ultrasound guidance into the left pleural cavity. Ultrasound images documented to confirm appropriate positioning. After standard over a guidewire exc hange technique and after serial dilatation, a 10 Macedonian drain is placed and distal loop formed in t he collection. A 200 ml of yellow serous fluid is aspirated and sent to microbiology. The drainage catheter is connected to Pleur-evac. The patient tolerated the procedure well with no immediate complications. 2. PICC line placement: After maximal sterile barrier technique preparation and draping, 1% lidocaine was utilized for local anesthesia. Initial ultrasound examination demonstrated patent basilic vein. The vein is compressible and superfi cial is deemed appropriate for access in right arm . Access into the right basilic vein was obtained with a 21-gauge needle was live ultrasound guidance. A 0.018 wire is introduced and advanced into the SVC without difficulty. Subsequently, a 5 Macedonian pee l-away sheath is introduced. The measurement performed from the skin site to the cavoatrial junction was assessed, and the PICC line catheter was trimmed to appropriate length. The double lumen 5 Macedonian PICC line was advanced through the peel-away sheath and the PICC line tip was confirmed to be at the distal SVC. Consequently the peel-away sheath was removed and the PICC line was fully advanced into the cavoatrial junction. Good blood return is seen with both the side ports flushed with saline. The patient tolerated the procedure well with no immediate complications. FINDINGS: 1. The left chest pleural effusion is serous fluid. 2. Patent basilic vein utilized for PICC line placement successfully. IMPRESSION: 1. Successful chest tube placement with ultrasound guidance into the left the pleural collection. 2. Double lumen 5 Macedonian PICC line placed through the right basilic vein vein with the tip at the cav oatrial junction.. Electronically signed by: Boris Jovel MD (12/03/2020 5:26 PM) [email or web address]
--- NOTE | 2020-12-03 17:29 | RAD ---
Site ID: [id number] EXAMINATION: 1. Ultrasound and Fluoroscopic guided PICC line placement. (CPT 47791, 41432, 05131) 2. Ultrasound guided drain placement. (Chest tube with image guidance CPT 44321) 3. Moderate sedation (CPT fill) INDICATION: Poor IV access, patient needs IV antibiotics. Left loculated pleural effusion. CONSENT: Informed consent was obtained. The risks, benefits, potential complications and alternatives were reviewed and all questions answered. SEDATION: Under physician supervision, Versed and fentanyl were administered intravenously for moder ate sedation. Pulse oximetry, heart rate, and BP were continuously monitored by an independent train ed observer present. The physician spent 60 minutes of cmno-hv-jgci sedation time with the patient. FLUOROSCOPY UTILIZED: 21mGy. PROCEDURE: 1. Chest tube placement: After maximal sterile barrier preparation and draping, 1% lidocaine was utilized for local anesthesia . With the patient in left side up position, lateral intercostal approach was selected. A 19-gauge One step sheathed needle was introduced utilizing live ultrasound guidance into the left pleural cavity. Ultrasound images documented to confirm appropriate positioning. After standard over a guidewire exc hange technique and after serial dilatation, a 10 English drain is placed and distal loop formed in t he collection. A 200 ml of yellow serous fluid is aspirated and sent to microbiology. The drainage catheter is connected to Pleur-evac. The patient tolerated the procedure well with no immediate complications. 2. PICC line placement: After maximal sterile barrier technique preparation and draping, 1% lidocaine was utilized for local anesthesia. Initial ultrasound examination demonstrated patent basilic vein. The vein is compressible and superfi cial is deemed appropriate for access in right arm . Access into the right basilic vein was obtained with a 21-gauge needle was live ultrasound guidance. A 0.018 wire is introduced and advanced into the SVC without difficulty. Subsequently, a 5 English pee l-away sheath is introduced. The measurement performed from the skin site to the cavoatrial junction was assessed, and the PICC line catheter was trimmed to appropriate length. The double lumen 5 English PICC line was advanced through the peel-away sheath and the PICC line tip was confirmed to be at the distal SVC. Consequently the peel-away sheath was removed and the PICC line was fully advanced into the cavoatrial junction. Good blood return is seen with both the side ports flushed with saline. The patient tolerated the procedure well with no immediate complications. FINDINGS: 1. The left chest pleural effusion is serous fluid. 2. Patent basilic vein utilized for PICC line placement successfully. IMPRESSION: 1. Successful chest tube placement with ultrasound guidance into the left the pleural collection. 2. Double lumen 5 English PICC line placed through the right basilic vein vein with the tip at the cav oatrial junction.. Electronically signed by: Boris Jovel MD (12/03/2020 5:26 PM) [email or web address]
--- NOTE | 2020-12-03 17:29 | RAD ---
Site ID: [id number] EXAMINATION: 1. Ultrasound and Fluoroscopic guided PICC line placement. (CPT 21142, 02128, 74494) 2. Ultrasound guided drain placement. (Chest tube with image guidance CPT 41440) 3. Moderate sedation (CPT fill) INDICATION: Poor IV access, patient needs IV antibiotics. Left loculated pleural effusion. CONSENT: Informed consent was obtained. The risks, benefits, potential complications and alternatives were reviewed and all questions answered. SEDATION: Under physician supervision, Versed and fentanyl were administered intravenously for moder ate sedation. Pulse oximetry, heart rate, and BP were continuously monitored by an independent train ed observer present. The physician spent 60 minutes of sqlt-og-qwzv sedation time with the patient. FLUOROSCOPY UTILIZED: 21mGy. PROCEDURE: 1. Chest tube placement: After maximal sterile barrier preparation and draping, 1% lidocaine was utilized for local anesthesia . With the patient in left side up position, lateral intercostal approach was selected. A 19-gauge One step sheathed needle was introduced utilizing live ultrasound guidance into the left pleural cavity. Ultrasound images documented to confirm appropriate positioning. After standard over a guidewire exc hange technique and after serial dilatation, a 10 Persian drain is placed and distal loop formed in t he collection. A 200 ml of yellow serous fluid is aspirated and sent to microbiology. The drainage catheter is connected to Pleur-evac. The patient tolerated the procedure well with no immediate complications. 2. PICC line placement: After maximal sterile barrier technique preparation and draping, 1% lidocaine was utilized for local anesthesia. Initial ultrasound examination demonstrated patent basilic vein. The vein is compressible and superfi cial is deemed appropriate for access in right arm . Access into the right basilic vein was obtained with a 21-gauge needle was live ultrasound guidance. A 0.018 wire is introduced and advanced into the SVC without difficulty. Subsequently, a 5 Persian pee l-away sheath is introduced. The measurement performed from the skin site to the cavoatrial junction was assessed, and the PICC line catheter was trimmed to appropriate length. The double lumen 5 Persian PICC line was advanced through the peel-away sheath and the PICC line tip was confirmed to be at the distal SVC. Consequently the peel-away sheath was removed and the PICC line was fully advanced into the cavoatrial junction. Good blood return is seen with both the side ports flushed with saline. The patient tolerated the procedure well with no immediate complications. FINDINGS: 1. The left chest pleural effusion is serous fluid. 2. Patent basilic vein utilized for PICC line placement successfully. IMPRESSION: 1. Successful chest tube placement with ultrasound guidance into the left the pleural collection. 2. Double lumen 5 Persian PICC line placed through the right basilic vein vein with the tip at the cav oatrial junction.. Electronically signed by: Boris Jovel MD (12/03/2020 5:26 PM) [email or web address]
--- NOTE | 2020-12-03 17:29 | RAD ---
Site ID: [id number] EXAMINATION: 1. Ultrasound and Fluoroscopic guided PICC line placement. (CPT 84479, 17730, 92211) 2. Ultrasound guided drain placement. (Chest tube with image guidance CPT 65566) 3. Moderate sedation (CPT fill) INDICATION: Poor IV access, patient needs IV antibiotics. Left loculated pleural effusion. CONSENT: Informed consent was obtained. The risks, benefits, potential complications and alternatives were reviewed and all questions answered. SEDATION: Under physician supervision, Versed and fentanyl were administered intravenously for moder ate sedation. Pulse oximetry, heart rate, and BP were continuously monitored by an independent train ed observer present. The physician spent 60 minutes of odeg-vt-nqyk sedation time with the patient. FLUOROSCOPY UTILIZED: 21mGy. PROCEDURE: 1. Chest tube placement: After maximal sterile barrier preparation and draping, 1% lidocaine was utilized for local anesthesia . With the patient in left side up position, lateral intercostal approach was selected. A 19-gauge One step sheathed needle was introduced utilizing live ultrasound guidance into the left pleural cavity. Ultrasound images documented to confirm appropriate positioning. After standard over a guidewire exc hange technique and after serial dilatation, a 10 German drain is placed and distal loop formed in t he collection. A 200 ml of yellow serous fluid is aspirated and sent to microbiology. The drainage catheter is connected to Pleur-evac. The patient tolerated the procedure well with no immediate complications. 2. PICC line placement: After maximal sterile barrier technique preparation and draping, 1% lidocaine was utilized for local anesthesia. Initial ultrasound examination demonstrated patent basilic vein. The vein is compressible and superfi cial is deemed appropriate for access in right arm . Access into the right basilic vein was obtained with a 21-gauge needle was live ultrasound guidance. A 0.018 wire is introduced and advanced into the SVC without difficulty. Subsequently, a 5 German pee l-away sheath is introduced. The measurement performed from the skin site to the cavoatrial junction was assessed, and the PICC line catheter was trimmed to appropriate length. The double lumen 5 German PICC line was advanced through the peel-away sheath and the PICC line tip was confirmed to be at the distal SVC. Consequently the peel-away sheath was removed and the PICC line was fully advanced into the cavoatrial junction. Good blood return is seen with both the side ports flushed with saline. The patient tolerated the procedure well with no immediate complications. FINDINGS: 1. The left chest pleural effusion is serous fluid. 2. Patent basilic vein utilized for PICC line placement successfully. IMPRESSION: 1. Successful chest tube placement with ultrasound guidance into the left the pleural collection. 2. Double lumen 5 German PICC line placed through the right basilic vein vein with the tip at the cav oatrial junction.. Electronically signed by: Boris Jovel MD (12/03/2020 5:26 PM) [email or web address]
--- NOTE | 2020-12-03 17:29 | RAD ---
Site ID: [id number] EXAMINATION: 1. Ultrasound and Fluoroscopic guided PICC line placement. (CPT 37994, 11937, 62004) 2. Ultrasound guided drain placement. (Chest tube with image guidance CPT 74862) 3. Moderate sedation (CPT fill) INDICATION: Poor IV access, patient needs IV antibiotics. Left loculated pleural effusion. CONSENT: Informed consent was obtained. The risks, benefits, potential complications and alternatives were reviewed and all questions answered. SEDATION: Under physician supervision, Versed and fentanyl were administered intravenously for moder ate sedation. Pulse oximetry, heart rate, and BP were continuously monitored by an independent train ed observer present. The physician spent 60 minutes of enuu-td-yegg sedation time with the patient. FLUOROSCOPY UTILIZED: 21mGy. PROCEDURE: 1. Chest tube placement: After maximal sterile barrier preparation and draping, 1% lidocaine was utilized for local anesthesia . With the patient in left side up position, lateral intercostal approach was selected. A 19-gauge One step sheathed needle was introduced utilizing live ultrasound guidance into the left pleural cavity. Ultrasound images documented to confirm appropriate positioning. After standard over a guidewire exc hange technique and after serial dilatation, a 10 Greek drain is placed and distal loop formed in t he collection. A 200 ml of yellow serous fluid is aspirated and sent to microbiology. The drainage catheter is connected to Pleur-evac. The patient tolerated the procedure well with no immediate complications. 2. PICC line placement: After maximal sterile barrier technique preparation and draping, 1% lidocaine was utilized for local anesthesia. Initial ultrasound examination demonstrated patent basilic vein. The vein is compressible and superfi cial is deemed appropriate for access in right arm . Access into the right basilic vein was obtained with a 21-gauge needle was live ultrasound guidance. A 0.018 wire is introduced and advanced into the SVC without difficulty. Subsequently, a 5 Greek pee l-away sheath is introduced. The measurement performed from the skin site to the cavoatrial junction was assessed, and the PICC line catheter was trimmed to appropriate length. The double lumen 5 Greek PICC line was advanced through the peel-away sheath and the PICC line tip was confirmed to be at the distal SVC. Consequently the peel-away sheath was removed and the PICC line was fully advanced into the cavoatrial junction. Good blood return is seen with both the side ports flushed with saline. The patient tolerated the procedure well with no immediate complications. FINDINGS: 1. The left chest pleural effusion is serous fluid. 2. Patent basilic vein utilized for PICC line placement successfully. IMPRESSION: 1. Successful chest tube placement with ultrasound guidance into the left the pleural collection. 2. Double lumen 5 Greek PICC line placed through the right basilic vein vein with the tip at the cav oatrial junction.. Electronically signed by: Boris Jovel MD (12/03/2020 5:26 PM) [email or web address]
--- NOTE | 2020-12-03 17:29 | RAD ---
Site ID: [id number] EXAMINATION: 1. Ultrasound and Fluoroscopic guided PICC line placement. (CPT 54883, 81950, 64901) 2. Ultrasound guided drain placement. (Chest tube with image guidance CPT 15955) 3. Moderate sedation (CPT fill) INDICATION: Poor IV access, patient needs IV antibiotics. Left loculated pleural effusion. CONSENT: Informed consent was obtained. The risks, benefits, potential complications and alternatives were reviewed and all questions answered. SEDATION: Under physician supervision, Versed and fentanyl were administered intravenously for moder ate sedation. Pulse oximetry, heart rate, and BP were continuously monitored by an independent train ed observer present. The physician spent 60 minutes of dbmk-ap-kttq sedation time with the patient. FLUOROSCOPY UTILIZED: 21mGy. PROCEDURE: 1. Chest tube placement: After maximal sterile barrier preparation and draping, 1% lidocaine was utilized for local anesthesia . With the patient in left side up position, lateral intercostal approach was selected. A 19-gauge One step sheathed needle was introduced utilizing live ultrasound guidance into the left pleural cavity. Ultrasound images documented to confirm appropriate positioning. After standard over a guidewire exc hange technique and after serial dilatation, a 10 Portuguese drain is placed and distal loop formed in t he collection. A 200 ml of yellow serous fluid is aspirated and sent to microbiology. The drainage catheter is connected to Pleur-evac. The patient tolerated the procedure well with no immediate complications. 2. PICC line placement: After maximal sterile barrier technique preparation and draping, 1% lidocaine was utilized for local anesthesia. Initial ultrasound examination demonstrated patent basilic vein. The vein is compressible and superfi cial is deemed appropriate for access in right arm . Access into the right basilic vein was obtained with a 21-gauge needle was live ultrasound guidance. A 0.018 wire is introduced and advanced into the SVC without difficulty. Subsequently, a 5 Portuguese pee l-away sheath is introduced. The measurement performed from the skin site to the cavoatrial junction was assessed, and the PICC line catheter was trimmed to appropriate length. The double lumen 5 Portuguese PICC line was advanced through the peel-away sheath and the PICC line tip was confirmed to be at the distal SVC. Consequently the peel-away sheath was removed and the PICC line was fully advanced into the cavoatrial junction. Good blood return is seen with both the side ports flushed with saline. The patient tolerated the procedure well with no immediate complications. FINDINGS: 1. The left chest pleural effusion is serous fluid. 2. Patent basilic vein utilized for PICC line placement successfully. IMPRESSION: 1. Successful chest tube placement with ultrasound guidance into the left the pleural collection. 2. Double lumen 5 Portuguese PICC line placed through the right basilic vein vein with the tip at the cav oatrial junction.. Electronically signed by: Boris Jovel MD (12/03/2020 5:26 PM) [email or web address]
--- NOTE | 2020-12-03 17:29 | RAD ---
Site ID: [id number] EXAMINATION: 1. Ultrasound and Fluoroscopic guided PICC line placement. (CPT 74329, 77951, 46018) 2. Ultrasound guided drain placement. (Chest tube with image guidance CPT 76972) 3. Moderate sedation (CPT fill) INDICATION: Poor IV access, patient needs IV antibiotics. Left loculated pleural effusion. CONSENT: Informed consent was obtained. The risks, benefits, potential complications and alternatives were reviewed and all questions answered. SEDATION: Under physician supervision, Versed and fentanyl were administered intravenously for moder ate sedation. Pulse oximetry, heart rate, and BP were continuously monitored by an independent train ed observer present. The physician spent 60 minutes of zgaa-xs-rxnp sedation time with the patient. FLUOROSCOPY UTILIZED: 21mGy. PROCEDURE: 1. Chest tube placement: After maximal sterile barrier preparation and draping, 1% lidocaine was utilized for local anesthesia . With the patient in left side up position, lateral intercostal approach was selected. A 19-gauge One step sheathed needle was introduced utilizing live ultrasound guidance into the left pleural cavity. Ultrasound images documented to confirm appropriate positioning. After standard over a guidewire exc hange technique and after serial dilatation, a 10 Occitan drain is placed and distal loop formed in t he collection. A 200 ml of yellow serous fluid is aspirated and sent to microbiology. The drainage catheter is connected to Pleur-evac. The patient tolerated the procedure well with no immediate complications. 2. PICC line placement: After maximal sterile barrier technique preparation and draping, 1% lidocaine was utilized for local anesthesia. Initial ultrasound examination demonstrated patent basilic vein. The vein is compressible and superfi cial is deemed appropriate for access in right arm . Access into the right basilic vein was obtained with a 21-gauge needle was live ultrasound guidance. A 0.018 wire is introduced and advanced into the SVC without difficulty. Subsequently, a 5 Occitan pee l-away sheath is introduced. The measurement performed from the skin site to the cavoatrial junction was assessed, and the PICC line catheter was trimmed to appropriate length. The double lumen 5 Occitan PICC line was advanced through the peel-away sheath and the PICC line tip was confirmed to be at the distal SVC. Consequently the peel-away sheath was removed and the PICC line was fully advanced into the cavoatrial junction. Good blood return is seen with both the side ports flushed with saline. The patient tolerated the procedure well with no immediate complications. FINDINGS: 1. The left chest pleural effusion is serous fluid. 2. Patent basilic vein utilized for PICC line placement successfully. IMPRESSION: 1. Successful chest tube placement with ultrasound guidance into the left the pleural collection. 2. Double lumen 5 Occitan PICC line placed through the right basilic vein vein with the tip at the cav oatrial junction.. Electronically signed by: Boris Jovel MD (12/03/2020 5:26 PM) [email or web address]
[2020-12-03] MEDS: AZITHROMYCIN 500 MG in IV NORMAL SALINE 250ML 250 ML IV SCH (17:31)
[2020-12-03] MEDS: PSYLLIUM HUSK (SUGAR FREE) 1 PKT PACKET PO SCH (17:40)
[2020-12-03 19:00] VITALS: BP 131/67
[2020-12-03] MEDS: LORazepam 0.5 MG TABLET PO PRN (20:52)
[2020-12-03] MEDS: ATORVASTATIN CALCIUM 40 MG TABLET. PO SCH (20:52)
[2020-12-03 23:00] VITALS: BP 136/85
[2020-12-04 03:00] VITALS: BP 136/82
[2020-12-04] MEDS: cefTRIAXone IV Push 1 GM VIAL. IVP SCH (03:13)
[2020-12-04] MEDS: KETOROLAC 15 MG/ML VIAL. IVP PRN ×3 (03:15→18:05)
[2020-12-04 04:44] LABS: BASO # 0.1 x10^3/uL (0.0-0.2); BASO % 1 % (0-3); EOS # 0.4 x10^3/uL (0.0-0.7); EOS % 4 % (0-3); HEMATOCRIT 31.7 % (39.0-53.0); HEMOGLOBIN 10.1 g/dL (13.0-17.5); LYMPH # 1.5 x10^3/uL (1.0-4.8); LYMPH % 15 % (24-48); MEAN CORPUSCULAR HEMOGLOBIN 26 pg (25-35); MEAN CORPUSCULAR HGB CONC 32 g/dL (31-37); MEAN CORPUSCULAR VOLUME 82 fL (79-100); MONO # 0.7 x10^3/uL (0.0-1.1); MONO % 7 % (0-9); NEUT # 7.1 x10^3/uL (1.8-7.7); NEUT % 73 % (31-73); PLATELET COUNT 316 x10^3/uL (140-400); RED BLOOD COUNT 3.88 x10^6/uL (4.30-5.70); RED CELL DISTRIBUTION WIDTH 14.1 % (11.5-14.5); WHITE BLOOD COUNT 9.7 x10^3/uL (4.0-11.0)
[2020-12-04 05:51] LABS: CALCIUM 7.9 mg/dL (8.5-10.1); CREATININE 0.9 mg/dL (0.7-1.3); GFR 85.2; POTASSIUM 3.8 mmol/L (3.5-5.1)
[2020-12-04] MEDS: HEPARIN 25,000UTS/250ML PREMIX 250 ML IV PRN ×2 (06:28→18:10)
[2020-12-04] MEDS: CYCLOBENZAPRINE 10 MG TABLET. PO PRN ×3 (06:29→18:05)
[2020-12-04 07:00] VITALS: BP 163/140
[2020-12-04] MEDS: IPRATRPIUM/ALBUTEROL 0.5/2.5MG 3 ML NEBU. NEB SCH ×4 (07:16→20:00)
[2020-12-04] MEDS: METOPROLOL TART IMMED RELEASE 25 MG TABLET. PO SCH ×2 (09:04→21:15)
[2020-12-04] MEDS: oxyCODONE/APAP 5/325 1 TAB TABLET PO PRN ×3 (09:05→21:14)
[2020-12-04] MEDS: LORazepam 0.5 MG TABLET PO PRN ×2 (09:06→21:14)
[2020-12-04] MEDS: LOSARTAN POTASSIUM 50 MG TABLET. PO SCH (09:06)
[2020-12-04] MEDS: amLODIPine BESYLATE 10 MG TABLET PO SCH (09:07)
[2020-12-04] MEDS: ASPIRIN ENTERIC COATED 81 MG TABLET.DR. PO SCH (09:07)
[2020-12-04] MEDS: POTASSIUM CHLORIDE 20 MEQ TABLET.ER. PO SCH (09:07)
[2020-12-04] MEDS: hydroCHLOROthiazide 12.5 MG CAPSULE PO SCH (09:07)
[2020-12-04] MEDS: LACTOBACILLUS RHAMNOSUS GG 1 CAPSULE. PO SCH ×2 (09:08→21:15)
--- NOTE | 2020-12-04 09:44 | RAD ---
Single AP view of the chest. Comparison: CT from the same day. Indication: Chest tube placement Findings: Left basilar chest tube is reidentified.. The heart is enlarged but stable. Loculated left-sided effu su is reidentified. Right lung is clear. There is compressive atelectasis the left lung. Multiple l eft-sided rib fractures are reidentified. Impression: 1. Stable small bore chest tube in the left lung base with persistent loculated left basilar effusion . Effusion is relatively stable in size when compared with yesterday's examination. Electronically signed by: Johnson Mendez MD (12/04/2020 9:42 AM) [id number]
--- NOTE | 2020-12-04 10:21 | PDOC ---
PULMONARY PROGRESS NOTES DATE: 12/04/20 TIME: 10:12 Subjective pt. now on 4 liters, increased SOB / S/P chest tube DC on 11/27, new Chest tube 12/02 for loculated left effusion, suspected hemothorax Vitals Vital Signs Date Time Temp Pulse Resp B/P (MAP) Pulse Ox O2 Delivery O2 Flow Rate FiO2 12/04/20 09:07 83 163/140 12/04/20 09:05 95 Nasal Cannula 4.0 12/04/20 07:00 98.2 20 98.2 ROS: No Nausea, No Abdominal Pain, No Increase Cough General: Alert, Oriented X4 Lungs: Clear, Other (decreased LLL) Cardiovascular: S1, S2 Abdomen: Soft Neuro Exam: Alert, Oriented Extremities: No Edema Skin: Warm, Dry Labs Laboratory Tests Test 12/02/20 13:13 12/02/20 23:20 12/03/20 06:00 12/03/20 13:50 Body Fluid Source Pleural Body Fluid Color Yellow Body Fluid Clarity Cloudy Body Fluid pH 7.50 Body Fluid Nucleated Cells 1067 /cmm (Not Established) Body Fluid Mononuclear WBCs (%) 17 % Body Fluid Polymorphonuclear Cells 83 % Body Fluid Total RBCs Counted 5569 /cmm (Not Established) Heparin Anti-Xa Act, Unfractionated < 0.10 IU/mL (0.30-0.70) 0.11 IU/mL (0.30-0.70) 0.52 IU/mL (0.30-0.70) Test 12/03/20 14:40 12/03/20 20:16 12/04/20 03:20 Hemoglobin 10.7 g/dL (13.0-17.5) 10.1 g/dL (13.0-17.5) Hematocrit 33.3 % (39.0-53.0) 31.7 % (39.0-53.0) Mean Corpuscular Hemoglobin Concent 32 g/dL (31-37) 32 g/dL (31-37) Heparin Anti-Xa Act, Unfractionated 0.36 IU/mL (0.30-0.70) 0.38 IU/mL (0.30-0.70) White Blood Count 9.7 x10^3/uL (4.0-11.0) Red Blood Count 3.88 x10^6/uL (4.30-5.70) Mean Corpuscular Volume 82 fL (79-100) Mean Corpuscular Hemoglobin 26 pg (25-35) Red Cell Distribution Width 14.1 % (11.5-14.5) Platelet Count 316 x10^3/uL (140-400) Neutrophils (%) (Auto) 73 % (31-73) Lymphocytes (%) (Auto) 15 % (24-48) Monocytes (%) (Auto) 7 % (0-9) Eosinophils (%) (Auto) 4 % (0-3) Basophils (%) (Auto) 1 % (0-3) Neutrophils # (Auto) 7.1 x10^3/uL (1.8-7.7) Lymphocytes # (Auto) 1.5 x10^3/uL (1.0-4.8) Monocytes # (Auto) 0.7 x10^3/uL (0.0-1.1) Eosinophils # (Auto) 0.4 x10^3/uL (0.0-0.7) Basophils # (Auto) 0.1 x10^3/uL (0.0-0.2) Sodium Level 142 mmol/L (136-145) Potassium Level 3.8 mmol/L (3.5-5.1) Chloride Level 105 mmol/L (98-107) Carbon Dioxide Level 31 mmol/L (21-32) Anion Gap 6 (6-14) Blood Urea Nitrogen 17 mg/dL (8-26) Creatinine 0.9 mg/dL (0.7-1.3) Estimated GFR (Cockcroft-Gault) 85.2 Glucose Level 104 mg/dL (70-99) Calcium Level 7.9 mg/dL (8.5-10.1) Laboratory Tests Test 12/03/20 13:50 12/03/20 14:40 12/03/20 20:16 12/04/20 03:20 Heparin Anti-Xa Act, Unfractionated 0.52 IU/mL (0.30-0.70) 0.36 IU/mL (0.30-0.70) 0.38 IU/mL (0.30-0.70) Hemoglobin 10.7 g/dL (13.0-17.5) 10.1 g/dL (13.0-17.5) Hematocrit 33.3 % (39.0-53.0) 31.7 % (39.0-53.0) Mean Corpuscular Hemoglobin Concent 32 g/dL (31-37) 32 g/dL (31-37) White Blood Count 9.7 x10^3/uL (4.0-11.0) Red Blood Count 3.88 x10^6/uL (4.30-5.70) Mean Corpuscular Volume 82 fL (79-100) Mean Corpuscular Hemoglobin 26 pg (25-35) Red Cell Distribution Width 14.1 % (11.5-14.5) Platelet Count 316 x10^3/uL (140-400) Neutrophils (%) (Auto) 73 % (31-73) Lymphocytes (%) (Auto) 15 % (24-48) Monocytes (%) (Auto) 7 % (0-9) Eosinophils (%) (Auto) 4 % (0-3) Basophils (%) (Auto) 1 % (0-3) Neutrophils # (Auto) 7.1 x10^3/uL (1.8-7.7) Lymphocytes # (Auto) 1.5 x10^3/uL (1.0-4.8) Monocytes # (Auto) 0.7 x10^3/uL (0.0-1.1) Eosinophils # (Auto) 0.4 x10^3/uL (0.0-0.7) Basophils # (Auto) 0.1 x10^3/uL (0.0-0.2) Sodium Level 142 mmol/L (136-145) Potassium Level 3.8 mmol/L (3.5-5.1) Chloride Level 105 mmol/L (98-107) Carbon Dioxide Level 31 mmol/L (21-32) Anion Gap 6 (6-14) Blood Urea Nitrogen 17 mg/dL (8-26) Creatinine 0.9 mg/dL (0.7-1.3) Estimated GFR (Cockcroft-Gault) 85.2 Glucose Level 104 mg/dL (70-99) Calcium Level 7.9 mg/dL (8.5-10.1) Medications Active Scripts Medications Dose Route/Sig Max Daily Dose Days Date Category Magnesium (Magnesium Oxide) 400 Mg Capsule 1 Cap PO DAILY 30 11/23/20 Reported Losartan Potassium 50 Mg Tablet 50 Mg PO DAILY 11/23/20 Reported Bystolic (Nebivolol) 2.5 Mg Tablet 2.5 Mg PO DAILY 11/23/20 Reported Dovonex (Calcipotriene) 60 Gm Cream..g. 1 Gm TP TID 30 05/15/17 Rx [Triamcinolone 0.1%CR] 1 Applic TP BID 05/13/17 Reported Tylenol (Acetaminophen) 325 Mg Tablet 650 Mg PO BID PRN 05/13/17 Reported Fluticasone Propionate Nasal Bow (Fluticasone Propionate) 16 Gm Bow.susp 1 Bow NS HS 05/13/17 Reported [Diltiazem CD] 1 Cap PO DAILY 05/13/17 Reported Aspirin Ec (Aspirin) 325 Mg Tablet.dr 1 Tab PO DAILY 05/13/17 Reported Comments cxr 12/03 no change in left effusion CT chest IMPRESSION: 1. Moderate to large loculated and likely hemorrhagic left-sided pleural effusion causing extensive atelectasis of the left lung. 2. Redemonstration of numerous left-sided rib fractures CTA chest IMPRESSION: 1. Bilateral lower lobe pulmonary emboli. This is not well assessed given utilization of a dissection protocol for this exam. 2. Multiple segmental displaced left rib fractures, described in detail above. Fractures are seen involving the second through ninth left ribs. There is an associated left chest wall soft tissue contusion and soft tissue gas, left lung contusion and a small left pleural effusion which may be due to a hemothorax. The recently demonstrated pneumothorax is no longer seen. 3. No evidence of aortic dissection or aneurysm. There is ectasia of the infrare nal abdominal aorta to a caliber of 2.8 cm. 4. Multilevel degenerative change involving the thoracic and lumbar spine, resulting in significant foraminal and central canal stenosis at the aforementioned levels. 5. No convincing acute thoracic or lumbar spine trauma. However, there are foci of gas within the suspected epidural space at multiple thoracic levels. This may be within epidural veins and related to surrounding soft tissue emphysema. 6. 5.0 cm fluid collection within a small fat-containing umbilical hernia. Impression . IMPRESSION: 1. Status post fall with multiple left rib fractures./left PTX 2. Left pneumothorax.resolved --DC Chest tube on 11/27, epidural dc. Pt developed multi-loculated left effusion, likely hemothorax, New left chest tube 12/02 4. Bilateral PE / Small, mostly LLL, place on heparin after dc epidural 5. Obstructive sleep apnea-hypopnea syndrome. 6. History of coronary artery disease. 7. Hypertension.--uncontrolled 12/01 chest X IMPRESSION: 1. Left basilar consolidation, atelectasis versus pneumonia. There is a suspected moderate sized left pleural effusion. 2. Mild patchy opacity at the right lung base, likely atelectasis. Plan . Updated 12/04/20 Continue supplemental oxygen on 4 liters NC, to keep sats above 92% CT chest reviewed--12/04. Two pockets in MAIKEL are not communicating with LLL and likely orgainzed hematoma. will need opinion from ct surgery for VAT continue chest tube with suction. Daily CXR Continue Rocpehin and azithromycin Pt. now on po pain medication Bilateral PE -- heparin gtt BLE U/S neg for DVT no need for IVC filter NEBS IS at bedside Fall precautions Follow cardiology recs We would require repeat sleep study as an outpatient. PT/OT DVT/GI PPX D/W RN Updated 12/03/20 Continue supplemental oxygen on 4 liters NC, to keep sats above 92% CT chest reviewed-- continue chest tube with suction. Will need repeat ct chest in am. If loculated effusion not improved, will need VAT for organized hemothorax. Daily CXR Continue Rocpehin and azithromycin Pt. now on po pain medication Bilateral PE -- heparin gtt BLE U/S neg for DVT no need for IVC filter NEBS IS at bedside Fall precautions Follow cardiology recs We would require repeat sleep study as an outpatient. PT/OT DVT/GI PPX D/W RN Updated 12/02/20 Continue supplemental oxygen on 4 liters NC, to keep sats above 92% CT chest reviewed-- IR consult for left chest tube placement Daily CXR Continue Rocpehin and azithromycin Pt. now on po pain medication Bilateral PE -- heparin gtt 24-- on hold BLE U/S neg for DVT no need for IVC filter NEBS IS at bedside Fall precautions Follow cardiology recs We would require repeat sleep study as an outpatient. PT/OT DVT/GI PPX D/W RN Updated 12/01/20 Continue supplemental oxygen on [address] chest results Start ABX, Rocpehin and azithromycin cxr reviewed Pt. now on po pain medication Bilateral PE -- heparin gtt 24 hours and plan to transition to Eliquis po BLE U/S neg for DVT no need for IVC filter NEBS IS at bedside Fall precautions Follow cardiology recs We would require repeat sleep study as an outpatient. PT/OT DVT/GI PPX d/w in detail with Dr Breana Heller RN Updated 430 Epidural removed approximately 11 AM We will initiate anticoagulation when okay with anesthesia Remains on room air Respiratory status PLAN AND RECOMMENDATIONS: Remains on room air cxr reviewed, no ptx --CT removed 11/27 CTA chest showed small Bilateral PE , mostly LLL. however AC is contraindicated in setting of Epidural, PE is clinically less significant and risk of AC outweighs enefits. plan to DC epidural cath and transition to PO pain medications Start heparin gtt 24 hours after DC of epidural cath, and plan to transition to Eliquis po BLE U/S neg for DVT no need for IVC filter NEBS IS at bedside Fall precautions Follow cardiology recs We would require repeat sleep study as an outpatient. PT/OT DVT/GI PPX d/w in detail with LORI Ernandez RN, MD December 04, 2020 10:21
[2020-12-04 11:00] VITALS: BP 122/73
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
--- NOTE | 2020-12-04 13:57 | RAD ---
EXAM: CT Chest without IV contrast CLINICAL HISTORY: Reason: loculated hemothorax / Spl. Instructions: / History: COMPARISON: 12/01/2020 11/28/2020 TECHNIQUE: CT of the chest without intravenous contrast. Axial, coronal and sagittal reformatted imag es were generated. ---PQRS compliance statement - One or more of the following individualized dose reduction techniques were utilized for this study: 1. Automated exposure control 2. Adjustment of the mA and/or kV according to patient size 3. Use of iterative reconstruction technique--- FINDINGS: Lack of intravenous contrast limits evaluation of solid organs, vasculature, and lymph nodes. Chest: Heart is not enlarged. Coronary artery and aortic root calcifications. Right upper extremity PICC tip is seen within the distal SVC. Left pigtail catheter with small associated collection. There is a lo culated component anteriorly measuring approximately 10.9 x 6.7 cm. A small loculated component is al so seen along the left major fissure. Dependent opacities in the lower lobes bilaterally likely contu su and consolidative process. Mild cardiomegaly. No mediastinal or hilar lymphadenopathy. No axillary lymphadenopathy. Multiple left rib fractures are again seen. Visualized Upper abdomen: Moderate to large right colonic stool content. IMPRESSION: 1. Left chest tube is seen within a small left pleural collection, with this portion decreased in si ze compared to 12/01/2020. Loculated pleural collections are seen anteriorly and along the left major f issure, grossly stable to prior CT 12/01/2020. 2. Dependent parenchymal opacities lower lobes likely atelectasis or consolidation/contusion 3. Subcutaneous gas along the posterolateral left chest wall. Electronically signed by: Yong Butts MD (12/04/2020 1:55 PM) [facility]
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
[2020-12-04 15:00] VITALS: BP 188/98
[2020-12-04] MEDS: fentaNYL PF VIAL 100 MCG/2 ML VIAL IVP PRN ×2 (15:24→22:32)
--- NOTE | 2020-12-04 16:10 | PATHOLOGY ---
Note [facility] Accession Number: [id number] TESTS RESULT FLAG UNITS REF RANGE LAB Clinician Provided Cytology Information No. of containers..01 Other (Miscellaneous) Source: LT PLEURAL F1 DIAGNOSIS: LT PLEURAL F1 NEGATIVE FOR MALIGNANT CELLS. PREDOMINANTLY NEUTROPHILS AND FEW LYMPHOCYTES IDENTIFIED. THIS INTERPRETATION INCLUDES EVALUATION OF A CELL BLOCK. Signed out by: 02 Jermaine Grover MD, Pathologist NPI- [id number] Performed by: Sarah Arceo, Demolition Expert ([facility]) Gross description: 20 ML, DARK YELLOW, 1 TP 1 CB /LCS 12/03/2020 1819 Local FLAG LEGEND: L-Low Normal,H-High Normal,LL-Alert Low,HH-Alert High <-Panic Low,>-Panic High,A-Abnormal,AA-Critical Abnormal Performed at: [address] [place] [address] Jared Diaz MD, [address] [facility] [address] [place] [address] Jermaine Grover MD, Specimen Comment: A courtesy copy of this report has been sent to [phone] Specimen Comment: Report sent to Specimen Comment: A duplicate report has been generated due to demographic updates. Performed at: [address], [place], [place] [id number] MD Jared Diaz MD Phone: [phone]
[2020-12-04] MEDS: PSYLLIUM HUSK (SUGAR FREE) 1 PKT PACKET PO SCH (17:10)
[2020-12-04] MEDS: AZITHROMYCIN 500 MG in IV NORMAL SALINE 250ML 250 ML IV SCH (17:10)
--- NOTE | 2020-12-04 17:56 | NUR ---
Received patient from JOURDAN Muñiz at 1330, after assessing patient , agreed with JOURDAN Muñiz 's assessment. Will continue to monitor.
[2020-12-04 19:00] VITALS: BP 196/96
[2020-12-04] MEDS: ATORVASTATIN CALCIUM 40 MG TABLET. PO SCH (21:15)
[2020-12-04 23:00] VITALS: BP 161/85
[2020-12-05] MEDS: CYCLOBENZAPRINE 10 MG TABLET. PO PRN (00:32)
[2020-12-05] MEDS: KETOROLAC 15 MG/ML VIAL. IVP PRN (00:33)
[2020-12-05] MEDS: LORazepam 0.5 MG TABLET PO PRN (01:26)
[2020-12-05] MEDS: fentaNYL PF VIAL 100 MCG/2 ML VIAL IVP PRN ×2 (01:26→05:58)
[2020-12-05] MEDS: oxyCODONE/APAP 5/325 1 TAB TABLET PO PRN ×2 (01:26→16:42)
[2020-12-05] MEDS: POLYETHYLENE GLYCOL 3350 17 GM PACKET. PO PRN (01:27)
[2020-12-05] MEDS: cefTRIAXone IV Push 1 GM VIAL. IVP SCH (02:47)
[2020-12-05 03:16] VITALS: BP 137/86
[2020-12-05] MEDS: HEPARIN 25,000UTS/250ML PREMIX 250 ML IV PRN ×2 (06:13→16:51)
[2020-12-05 06:31] LABS: BASO % 1 % (0-3); EOS # 0.2 x10^3/uL (0.0-0.7); EOS % 3 % (0-3); HEMATOCRIT 30.6 % (39.0-53.0); HEMOGLOBIN 9.9 g/dL (13.0-17.5); LYMPH # 1.7 x10^3/uL (1.0-4.8); LYMPH % 18 % (24-48); MEAN CORPUSCULAR HEMOGLOBIN 27 pg (25-35); MEAN CORPUSCULAR HGB CONC 32 g/dL (31-37); MEAN CORPUSCULAR VOLUME 82 fL (79-100); MONO # 0.7 x10^3/uL (0.0-1.1); MONO % 8 % (0-9); NEUT # 6.6 x10^3/uL (1.8-7.7); NEUT % 71 % (31-73); PLATELET COUNT 291 x10^3/uL (140-400); RED BLOOD COUNT 3.74 x10^6/uL (4.30-5.70); WHITE BLOOD COUNT 9.3 x10^3/uL (4.0-11.0)
[2020-12-05] MEDS: IPRATRPIUM/ALBUTEROL 0.5/2.5MG 3 ML NEBU. NEB SCH ×3 (07:43→15:38)
[2020-12-05 07:57] VITALS: BP 172/91
--- NOTE | 2020-12-05 09:07 | PDOC ---
PULMONARY PROGRESS NOTES DATE: 12/05/20 TIME: 09:03 Subjective pt. now on 4 liters, increased SOB 5/2 S/P chest tube DC on 11/27, new Chest tube 12/02 for loculated left effusion, suspected hemothorax Vitals Vital Signs Date Time Temp Pulse Resp B/P (MAP) Pulse Ox O2 Delivery O2 Flow Rate FiO2 12/05/20 07:57 98.0 83 20 172/91 (118) 92 Nasal Cannula 4.0 98.0 ROS: No Nausea, No Abdominal Pain, No Increase Cough General: Alert, Oriented X4 Lungs: Clear, Other (decreased LLL) Cardiovascular: S1, S2 Abdomen: Soft Neuro Exam: Alert, Oriented Extremities: No Edema Skin: Warm, Dry Labs Laboratory Tests Test 12/03/20 13:50 12/03/20 14:40 12/03/20 20:16 12/04/20 03:20 Heparin Anti-Xa Act, Unfractionated 0.52 IU/mL (0.30-0.70) 0.36 IU/mL (0.30-0.70) 0.38 IU/mL (0.30-0.70) Hemoglobin 10.7 g/dL (13.0-17.5) 10.1 g/dL (13.0-17.5) Hematocrit 33.3 % (39.0-53.0) 31.7 % (39.0-53.0) Mean Corpuscular Hemoglobin Concent 32 g/dL (31-37) 32 g/dL (31-37) White Blood Count 9.7 x10^3/uL (4.0-11.0) Red Blood Count 3.88 x10^6/uL (4.30-5.70) Mean Corpuscular Volume 82 fL (79-100) Mean Corpuscular Hemoglobin 26 pg (25-35) Red Cell Distribution Width 14.1 % (11.5-14.5) Platelet Count 316 x10^3/uL (140-400) Neutrophils (%) (Auto) 73 % (31-73) Lymphocytes (%) (Auto) 15 % (24-48) Monocytes (%) (Auto) 7 % (0-9) Eosinophils (%) (Auto) 4 % (0-3) Basophils (%) (Auto) 1 % (0-3) Neutrophils # (Auto) 7.1 x10^3/uL (1.8-7.7) Lymphocytes # (Auto) 1.5 x10^3/uL (1.0-4.8) Monocytes # (Auto) 0.7 x10^3/uL (0.0-1.1) Eosinophils # (Auto) 0.4 x10^3/uL (0.0-0.7) Basophils # (Auto) 0.1 x10^3/uL (0.0-0.2) Sodium Level 142 mmol/L (136-145) Potassium Level 3.8 mmol/L (3.5-5.1) Chloride Level 105 mmol/L (98-107) Carbon Dioxide Level 31 mmol/L (21-32) Anion Gap 6 (6-14) Blood Urea Nitrogen 17 mg/dL (8-26) Creatinine 0.9 mg/dL (0.7-1.3) Estimated GFR (Cockcroft-Gault) 85.2 Glucose Level 104 mg/dL (70-99) Calcium Level 7.9 mg/dL (8.5-10.1) Test 12/05/20 06:15 White Blood Count 9.3 x10^3/uL (4.0-11.0) Red Blood Count 3.74 x10^6/uL (4.30-5.70) Hemoglobin 9.9 g/dL (13.0-17.5) Hematocrit 30.6 % (39.0-53.0) Mean Corpuscular Volume 82 fL (79-100) Mean Corpuscular Hemoglobin 27 pg (25-35) Mean Corpuscular Hemoglobin Concent 32 g/dL (31-37) Red Cell Distribution Width 14.0 % (11.5-14.5) Platelet Count 291 x10^3/uL (140-400) Neutrophils (%) (Auto) 71 % (31-73) Lymphocytes (%) (Auto) 18 % (24-48) Monocytes (%) (Auto) 8 % (0-9) Eosinophils (%) (Auto) 3 % (0-3) Basophils (%) (Auto) 1 % (0-3) Neutrophils # (Auto) 6.6 x10^3/uL (1.8-7.7) Lymphocytes # (Auto) 1.7 x10^3/uL (1.0-4.8) Monocytes # (Auto) 0.7 x10^3/uL (0.0-1.1) Eosinophils # (Auto) 0.2 x10^3/uL (0.0-0.7) Basophils # (Auto) 0.0 x10^3/uL (0.0-0.2) Heparin Anti-Xa Act, Unfractionated 0.26 IU/mL (0.30-0.70) Laboratory Tests Test 12/05/20 06:15 White Blood Count 9.3 x10^3/uL (4.0-11.0) Red Blood Count 3.74 x10^6/uL (4.30-5.70) Hemoglobin 9.9 g/dL (13.0-17.5) Hematocrit 30.6 % (39.0-53.0) Mean Corpuscular Volume 82 fL (79-100) Mean Corpuscular Hemoglobin 27 pg (25-35) Mean Corpuscular Hemoglobin Concent 32 g/dL (31-37) Red Cell Distribution Width 14.0 % (11.5-14.5) Platelet Count 291 x10^3/uL (140-400) Neutrophils (%) (Auto) 71 % (31-73) Lymphocytes (%) (Auto) 18 % (24-48) Monocytes (%) (Auto) 8 % (0-9) Eosinophils (%) (Auto) 3 % (0-3) Basophils (%) (Auto) 1 % (0-3) Neutrophils # (Auto) 6.6 x10^3/uL (1.8-7.7) Lymphocytes # (Auto) 1.7 x10^3/uL (1.0-4.8) Monocytes # (Auto) 0.7 x10^3/uL (0.0-1.1) Eosinophils # (Auto) 0.2 x10^3/uL (0.0-0.7) Basophils # (Auto) 0.0 x10^3/uL (0.0-0.2) Heparin Anti-Xa Act, Unfractionated 0.26 IU/mL (0.30-0.70) Medications Active Scripts Medications Dose Route/Sig Max Daily Dose Days Date Category Magnesium (Magnesium Oxide) 400 Mg Capsule 1 Cap PO DAILY 30 11/23/20 Reported Losartan Potassium 50 Mg Tablet 50 Mg PO DAILY 11/23/20 Reported Bystolic (Nebivolol) 2.5 Mg Tablet 2.5 Mg PO DAILY 11/23/20 Reported Dovonex (Calcipotriene) 60 Gm Cream..g. 1 Gm TP TID 30 05/15/17 Rx [Triamcinolone 0.1%CR] 1 Applic TP BID 05/13/17 Reported Tylenol (Acetaminophen) 325 Mg Tablet 650 Mg PO BID PRN 05/13/17 Reported Fluticasone Propionate Nasal Hoffmeister (Fluticasone Propionate) 16 Gm Hoffmeister.susp 1 Hoffmeister NS HS 05/13/17 Reported [Diltiazem CD] 1 Cap PO DAILY 05/13/17 Reported Aspirin Ec (Aspirin) 325 Mg Tablet.dr 1 Tab PO DAILY 05/13/17 Reported Comments cxr 12/04 Impression: 1. Stable small bore chest tube in the left lung base with persistent loculated left basilar effusion. Effusion is relatively stable in size when compared with yesterday's examination. cxr 12/03 no change in left effusion CT chest IMPRESSION: 1. Moderate to large loculated and likely hemorrhagic left-sided pleural effusion causing extensive atelectasis of the left lung. 2. Redemonstration of numerous left-sided rib fractures CTA chest IMPRESSION: 1. Bilateral lower lobe pulmonary emboli. This is not well assessed given utilization of a dissection protocol for this exam. 2. Multiple segmental displaced left rib fractures, described in detail above. Fractures are seen involving the second through ninth left ribs. There is an associated left chest wall soft tissue contusion and soft tissue gas, left lung contusion and a small left pleural effusion which may be due to a hemothorax. The recently demonstrated pneumothorax is no longer seen. 3. No evidence of aortic dissection or aneurysm. There is ectasia of the infrarenal abdominal aorta to a caliber of 2.8 cm. 4. Multilevel degenerative change involving the thoracic and lumbar spine, resulting in significant foraminal and central canal stenosis at the aforementioned levels. 5. No convincing acute thoracic or lumbar spine trauma. However, there are foci of gas within the suspected epidural space at multiple thoracic levels. This may be within epidural veins and related to surrounding soft tissue emphysema. 6. 5.0 cm fluid collection within a small fat-containing umbilical hernia. Impression . IMPRESSION: 1. Status post fall with multiple left rib fractures./left PTX 2. Left pneumothorax.resolved --DC Chest tube on 11/27, epidural dc. Pt developed multi-loculated left effusion, likely hemothorax, New left chest tube 12/02 4. Bilateral PE / Small, mostly LLL, place on heparin after dc epidural 5. Obstructive sleep apnea-hypopnea syndrome. 6. History of coronary artery disease. 7. Hypertension.--uncontrolled 12/01 chest X IMPRESSION: 1. Left basilar consolidation, atelectasis versus pneumonia. There is a suspected moderate sized left pleural effusion. 2. Mild patchy opacity at the right lung base, likely atelectasis. Plan . Updated 12/05/20 Continue supplemental oxygen on 4 liters NC, to keep sats above 92% CT chest reviewed--12/04. Two pockets in MAIKEL are not communicating with LLL and likely orgainzed hematoma. will need VAT / discussed with thoracic surgery Dr Del Castillo at [facility].He acepted pt but no bed available at [facility]. d/w Dr Abrams at . awaiting insurance approval for transfer continue chest tube with suction. Daily CXR Continue Rocpehin and azithromycin Pt. now on po pain medication Bilateral PE -- heparin gtt BLE U/S neg for DVT no need for IVC filter NEBS IS at bedside Fall precautions Follow cardiology recs We would require repeat sleep study as an outpatient. PT/OT DVT/GI PPX D/W RN Updated 12/04/20 Continue supplemental oxygen on 4 liters NC, to keep sats above 92% CT chest reviewed--12/04. Two pockets in MAIKEL are not communicating with LLL and likely orgainzed hematoma. will need opinion from ct surgery for VAT continue chest tube with suction. Daily CXR Continue Rocpehin and azithromycin Pt. now on po pain medication Bilateral PE -- heparin gtt BLE U/S neg for DVT no need for IVC filter NEBS IS at bedside Fall precautions Follow cardiology recs We would require repeat sleep study as an outpatient. PT/OT DVT/GI PPX D/W RN Updated 12/03/20 Continue supplemental oxygen on 4 liters NC, to keep sats above 92% CT chest reviewed-- continue chest tube with suction. Will need repeat ct chest in am. If loculated effusion not improved, will need VAT for organized hemothorax. Daily CXR Continue Rocpehin and azithromycin Pt. now on po pain medication Bilateral PE -- heparin gtt BLE U/S neg for DVT no need for IVC filter NEBS IS at bedside Fall precautions Follow cardiology recs We would require repeat sleep study as an outpatient. PT/OT DVT/GI PPX D/W RN Updated 12/02/20 Continue supplemental oxygen on 4 liters NC, to keep sats above 92% CT chest reviewed-- IR consult for left chest tube placement Daily CXR Continue Rocpehin and azithromycin Pt. now on po pain medication Bilateral PE -- heparin gtt 24-- on hold BLE U/S neg for DVT no need for IVC filter NEBS IS at bedside Fall precautions Follow cardiology recs We would require repeat sleep study as an outpatient. PT/OT DVT/GI PPX D/W RN Updated 12/01/20 Continue supplemental oxygen on [address] chest results Start ABX, Rocpehin and azithromycin cxr reviewed Pt. now on po pain medication Bilateral PE -- heparin gtt 24 hours and plan to transition to Eliquis po BLE U/S neg for DVT no need for IVC filter NEBS IS at bedside Fall precautions Follow cardiology recs We would require repeat sleep study as an outpatient. PT/OT DVT/GI PPX d/w in detail with Dr Breana Rao/Mario RN Updated 430 Epidural removed approximately 11 AM We will initiate anticoagulation when okay with anesthesia Remains on room air Respiratory status PLAN AND RECOMMENDATIONS: Remains on room air cxr reviewed, no ptx --CT removed 11/27 CTA chest showed small Bilateral PE , mostly LLL. however AC is contraindicated in setting of Epidural, PE is clinically less significant and risk of AC outweighs enefits. plan to DC epidural cath and transition to PO pain medications Start heparin gtt 24 hours after DC of epidural cath, and plan to transition to Eliquis po BLE U/S neg for DVT no need for IVC filter NEBS IS at bedside Fall precautions Follow cardiology recs We would require repeat sleep study as an outpatient. PT/OT DVT/GI PPX d/w in detail with Dr Breana Rao/Mario RN LORI OSPINA MD December 05, 2020 09:07
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
[2020-12-05] MEDS: ASPIRIN ENTERIC COATED 81 MG TABLET.DR. PO SCH (09:54)
[2020-12-05] MEDS: hydroCHLOROthiazide 12.5 MG CAPSULE PO SCH (09:54)
[2020-12-05] MEDS: LACTOBACILLUS RHAMNOSUS GG 1 CAPSULE. PO SCH (09:54)
[2020-12-05] MEDS: METOPROLOL TART IMMED RELEASE 25 MG TABLET. PO SCH (09:55)
[2020-12-05] MEDS: POTASSIUM CHLORIDE 20 MEQ TABLET.ER. PO SCH (09:55)
[2020-12-05] MEDS: amLODIPine BESYLATE 10 MG TABLET PO SCH (09:56)
[2020-12-05] MEDS: LOSARTAN POTASSIUM 50 MG TABLET. PO SCH (09:56)
[2020-12-05] MEDS: DOCUSATE SODIUM 100 MG CAPSULE. PO PRN (10:09)
[2020-12-05 11:19] VITALS: BP 185/91
[2020-12-05 15:51] VITALS: BP 163/83
--- NOTE | 2020-12-05 16:45 | RAD ---
EXAMINATION: Chest radiograph. HISTORY: Reason: chets tube placement Comparison: CT chest dated 12/04/2020. TECHNIQUE: Single AP view FINDINGS: Left basilar pigtail pleural drain catheter remains unchanged in position. Essentially similar large loculated left pleural effusion with associated compressive atelectasis. No pneumothorax. Right lung is clear. Right PICC line catheter terminates within the right atrium, similar to prior exam. No acut e process process. IMPRESSION: Similar position of the left basilar pleural drain catheter with essentially unchanged large left ple ural effusion with associated compressive atelectasis. Electronically signed by: Darlene Jason MD (12/05/2020 4:42 PM) [id number]
--- NOTE | 2020-12-05 18:00 | NUR ---
Discharge Note: ANDREW LARSEN J6 [facility] Discharge instructions and discharge home medications reviewed with Hank at [facility] and a copy given. All questions have been answered and understanding verbalized. The following instructions and handouts were given: transfer of care Discontinued lines and drains: DL PICC intact. Patient discharged to [facility] via EMS and [facility] for transport.
== END 2020-12-05 17:43 | disposition short-term general hospital (02) | DRG 199 ==
LOC: EEVIPCON 19:21 → ER 19:21 → 4 NORTH 20:18 → 6 SOUTH 11-24 00:01 → OBSVTOIN 11-24 11:01
PROVIDERS: ADMIT Family Medicine; ATTEND Family Medicine
PROC: 0W9930Z Drainage of Right Pleural Cavity with Drainage Device, Percutaneous Approach (ICD-10-PCS; principal; 2020-12-03)
PROC: 02HV33Z Insertion of Infusion Device into Superior Vena Cava, Percutaneous Approach (ICD-10-PCS; 2020-12-03)
PROC: B548ZZA Ultrasonography of Superior Vena Cava, Guidance (ICD-10-PCS; 2020-12-03)
PROC: 0W9B30Z Drainage of Left Pleural Cavity with Drainage Device, Percutaneous Approach (ICD-10-PCS; 2020-12-03)
DX: S27.0XXA Traumatic pneumothorax, initial encounter (principal); J96.01 Acute respiratory failure with hypoxia; J15.6 Pneumonia due to other Gram-negative bacteria; S22.42XA Multiple fractures of ribs, left side, initial encounter for closed fracture; J90 Pleural effusion, not elsewhere classified; J98.11 Atelectasis; S27.321A Contusion of lung, unilateral, initial encounter; T79.7XXA Traumatic subcutaneous emphysema, initial encounter; G47.33 Obstructive sleep apnea (adult) (pediatric); I25.10 Atherosclerotic heart disease of native coronary artery without angina pectoris; I10 Essential (primary) hypertension; E66.01 Morbid (severe) obesity due to excess calories; S00.93XA Contusion of unspecified part of head, initial encounter; I16.0 Hypertensive urgency; E78.5 Hyperlipidemia, unspecified; M48.061 Spinal stenosis, lumbar region without neurogenic claudication; M51.24 Other intervertebral disc displacement, thoracic region; M54.10 Radiculopathy, site unspecified; Z20.822 Contact with and (suspected) exposure to COVID-19; G89.29 Other chronic pain; K42.9 Umbilical hernia without obstruction or gangrene; M48.04 Spinal stenosis, thoracic region; V18.4XXA Pedal cycle driver injured in noncollision transport accident in traffic accident, initial encounter; Y93.55 Activity, bike riding; Y92.89 Other specified places as the place of occurrence of the external cause; Y99.8 Other external cause status; Z79.899 Other long term (current) drug therapy; Z86.711 Personal history of pulmonary embolism; Z79.82 Long term (current) use of aspirin; Z95.5 Presence of coronary angioplasty implant and graft; Z91.19 Patient's noncompliance with other medical treatment and regimen; Z82.49 Family history of ischemic heart disease and other diseases of the circulatory system
CPT/HCPCS: 32557; 36415; 36573; 36600; 71045; 71250; 71275; 74174; 77001; 80048; 80053; 80061; 80307; 81001; 82805; 82945; 83615; 83735; 83986; 84100; 84157; 85014; 85018; 85025; 85027; 85520; 87071; 87075; 87426; 88112; 88305; 89050; 93005; 93970; 94640; 94667; 94668; 94760; 99152; 99153; 99285; C1751; C1769; C1892; G0238; G0378; G0379; J0360; J0456; J0696; J1170; J1644; J1650; J1885; J2250; J2270; J2405; J3010; J3490; J7030; J7050; Q9967; U0003; 97116-GP; 97530-GO; 97530-GP; 97535-GO; J7613